=== PATIENT | male | born 1970 | race Caucasian/White ===

== ENCOUNTER 2016-09-26 22:34 | Inpatient (IN) | payer OTHER ==
[2016-09-26] MEDS ORDERED: ONDANSETRON 4 MG/2 ML VIAL IVP STA (23:26)
[2016-09-26] MEDS ORDERED: SODIUM CHLORIDE 0.9% 1,000 ML IV STA (23:26)
[2016-09-26] MEDS ORDERED: HYDROmorphone 1 MG/ML 1 ML SYRINGE IVP STA (23:26)
--- NOTE | 2016-09-26 23:33 | ED ---
Abdominal Pain HPI - General Chief Complaint: Abdominal Pain Stated Complaint: Abd pain Time Seen by Provider: 09/26/16 23:18 Source: patient, RN notes reviewed Mode of arrival: ambulatory Limitations: no limitations - History of Present Illness Initial Comments: patient is a 46-year-old male presents to the emergency room for evaluation of abdominal pain. Patient states abdominal pain began about 2-3 days ago. Patient states the pain started in his left lower quadrant now radiated up into his left upper quadrant and right upper quadrant. Patient denies any history of abdominal pain. Patient denies any history of abdominal surgeries. Patient is having 10 out of 10 constant pain. Patient states he has chronic back pain. Patient states takes Percocet daily. Patient denies any other significant past medical history. Patient denies chest pain or shortness of breath. Patient states he is nauseous but denies vomiting. Patient denies constipation or diarrhea. Patient denies fevers or chills. Patient states he has been breaking out in cold sweats. Patient denies smoking, drinking or illicit drug use. patient denies trying any foods. Patient denies recent travel outside the country. Patient denies any new medications. - Related Data Home Medications Medication Instructions Recorded Confirmed oxyCODONE HCL/ACETAMINOPHEN 1 tab PO Q6HR PRN 09/26/16 09/26/16 [Percocet 10-325 mg] Allergies Allergy/AdvReac Type Severity Reaction Status Date / Time meperidine [From Demerol] Allergy Anaphylaxis Verified 09/26/16 23:23 propoxyphene Allergy Anaphylaxis Verified 09/26/16 23:23 Review of Systems ROS Statement: Those systems with pertinent positive or pertinent negative responses have been documented in the HPI. ROS Other: All systems not noted in ROS Statement are negative. Past Medical History Past Medical History: No Reported History History of Any Multi-Drug Resistant Organisms: None Reported Past Surgical History: Orthopedic Surgery Additional Past Surgical History / Comment(s): hand sx. Past Psychological History: No Psychological Hx Reported Smoking Status: Former smoker Past Alcohol Use History: Rare Past Drug Use History: None Reported General Exam - General Exam Comments Initial Comments: laying in exam room, uncomfortable secondary to pain. Limitations: no limitations General appearance: alert, in no apparent distress Head exam: Present: atraumatic, normocephalic, normal inspection Eye exam: Present: normal appearance ENT exam: Present: normal exam Neck exam: Present: normal inspection Respiratory exam: Present: normal lung sounds bilaterally. Absent: respiratory distress Cardiovascular Exam: Present: regular rate, normal rhythm, normal heart sounds GI/Abdominal exam: Present: soft, tenderness (left lower quadrant, left upper quadrant, right upper quadrant), normal bowel sounds. Absent: distended, guarding, rebound, rigid Extremities exam: Present: normal inspection Back exam: Present: normal inspection Neurological exam: Present: alert, oriented X3, CN II-XII intact, normal gait Psychiatric exam: Present: normal affect, normal mood Skin exam: Present: warm, dry, intact, normal color. Absent: rash Course Vital Signs 09/26/16 09/26/16 09/27/16 22:48 23:48 01:20 Temperature 97.5 F L 98.8 F 98.0 F Pulse Rate 67 63 62 Respiratory 18 16 18 Rate Blood Pressure 129/79 132/81 128/68 O2 Sat by Pulse 92 L 96 98 Oximetry 09/27/16 03:12 Temperature 97.9 F Pulse Rate 67 Respiratory 16 Rate Blood Pressure 122/68 O2 Sat by Pulse 98 Oximetry Medical Decision Making - Medical Decision Making Patient is a 46-year-old male presents to the emergency room for evaluation of abdominal pain. Patient's liver enzymes elevated along with amylase and lipase. Ultrasound showed no signs of cholecystitis or cholelithiasis. Patient will be admitted for pancreatitis. Consult with Dr. Rachel. Case discussed Dr. Pickett. Dr. Pickett discussed case with Dr. Desir who agreed to admit patient - Lab Data Result diagrams: 09/26/16 23:46 09/26/16 23:46 Lab Results 09/26/16 09/26/16 09/26/16 Range/Units 23:46 23:46 23:46 WBC 8.0 (3.8-10.6) k/uL RBC 5.00 (4.30-5.90) m/uL Hgb 15.5 (13.0-17.5) gm/dL Hct 42.8 (39.0-53.0) % MCV 85.5 (80.0-100.0) fL MCH 31.0 (25.0-35.0) pg MCHC 36.2 (31.0-37.0) g/dL RDW 13.0 (11.5-15.5) % Plt Count 197 (150-450) k/uL Neutrophils % 77 % Lymphocytes % 17 % Monocytes % 4 % Eosinophils % 1 % Basophils % 0 % Neutrophils # 6.2 (1.3-7.7) k/uL Lymphocytes # 1.4 (1.0-4.8) k/uL Monocytes # 0.3 (0-1.0) k/uL Eosinophils # 0.1 (0-0.7) k/uL Basophils # 0.0 (0-0.2) k/uL Hyperchromasia Slight Sodium 140 (137-145) mmol/L Potassium 4.4 (3.5-5.1) mmol/L Chloride 104 (98-107) mmol/L Carbon Dioxide 26 (22-30) mmol/L Anion Gap 10 mmol/L BUN 12 (9-20) mg/dL Creatinine 0.90 (0.66-1.25) mg/dL Est GFR (MDRD) Af Amer >60 (>60 ml/min/1.73 sqM) Est GFR (MDRD) Non-Af >60 (>60 ml/min/1.73 sqM) Glucose 152 H (74-99) mg/dL Calcium 9.2 (8.4-10.2) mg/dL Total Bilirubin 4.1 H (0.2-1.3) mg/dL AST 218 H (17-59) U/L ALT 235 H (21-72) U/L Alkaline Phosphatase 142 H (38-126) U/L Total Creatine Kinase 52 L (55-170) U/L CK-MB (CK-2) 0.3 (0.0-2.4) ng/mL CK-MB (CK-2) Rel Index 0.6 Troponin I <0.012 (0.000-0.034) ng/mL Total Protein 7.0 (6.3-8.2) g/dL Albumin 3.9 (3.5-5.0) g/dL Amylase 1691 H* (30-110) U/L Lipase 87069 H (23-300) U/L Urine Color Urine Appearance (Clear) Urine pH (5.0-8.0) Ur Specific [place] (1.001-1.035) Urine Protein (Negative) Urine Glucose (UA) (Negative) Urine Ketones (Negative) Urine Blood (Negative) Urine Nitrite (Negative) Urine Bilirubin (Negative) Urine Urobilinogen (<2.0) mg/dL Ur Leukocyte Esterase (Negative) 09/27/16 Range/Units 00:05 WBC (3.8-10.6) k/uL RBC (4.30-5.90) m/uL Hgb (13.0-17.5) gm/dL Hct (39.0-53.0) % MCV (80.0-100.0) fL MCH (25.0-35.0) pg MCHC (31.0-37.0) g/dL RDW (11.5-15.5) % Plt Count (150-450) k/uL Neutrophils % % Lymphocytes % % Monocytes % % Eosinophils % % Basophils % % Neutrophils # (1.3-7.7) k/uL Lymphocytes # (1.0-4.8) k/uL Monocytes # (0-1.0) k/uL Eosinophils # (0-0.7) k/uL Basophils # (0-0.2) k/uL Hyperchromasia Sodium (137-145) mmol/L Potassium (3.5-5.1) mmol/L Chloride (98-107) mmol/L Carbon Dioxide (22-30) mmol/L Anion Gap mmol/L BUN (9-20) mg/dL Creatinine (0.66-1.25) mg/dL Est GFR (MDRD) Af Amer (>60 ml/min/1.73 sqM) Est GFR (MDRD) Non-Af (>60 ml/min/1.73 sqM) Glucose (74-99) mg/dL Calcium (8.4-10.2) mg/dL Total Bilirubin (0.2-1.3) mg/dL AST (17-59) U/L ALT (21-72) U/L Alkaline Phosphatase (38-126) U/L Total Creatine Kinase (55-170) U/L CK-MB (CK-2) (0.0-2.4) ng/mL CK-MB (CK-2) Rel Index Troponin I (0.000-0.034) ng/mL Total Protein (6.3-8.2) g/dL Albumin (3.5-5.0) g/dL Amylase (30-110) U/L Lipase (23-300) U/L Urine Color Dark Yellow Urine Appearance Clear (Clear) Urine pH 6.0 (5.0-8.0) Ur Specific [place] 1.021 (1.001-1.035) Urine Protein Trace H (Negative) Urine Glucose (UA) Negative (Negative) Urine Ketones Negative (Negative) Urine Blood Negative (Negative) Urine Nitrite Negative (Negative) Urine Bilirubin 1+ H (Negative) Urine Urobilinogen 6.0 (<2.0) mg/dL Ur Leukocyte Esterase Negative (Negative) - Radiology Data Radiology results: report reviewed, image reviewed Disposition Clinical Impression: Pancreatitis Disposition: ADMITTED IP TO THIS [facility] Condition: Stable Decision Date: 09/27/16
[2016-09-27 00:21] LABS: Basophils % (A) 0 %; CH 32.4; CHCM 38.1; Eosinophils # (A) 0.1 k/uL (0-0.7); Eosinophils % (A) 1 %; HCT 42.8 % (39.0-53.0); HDW 3.05; HGB 15.5 gm/dL (13.0-17.5); Hyperchromasia Slight; Luc % (Auto) 1; Lymphocytes # (A) 1.4 k/uL (1.0-4.8); Lymphocytes % (A) 17 %; MCHC 36.2 g/dL (31.0-37.0); MCV 85.5 fL (80.0-100.0); Monocytes # (A) 0.3 k/uL (0-1.0); Monocytes % (A) 4 %; Neutrophils # (A) 6.2 k/uL (1.3-7.7); Neutrophils % (A) 77 %; WBC (Perox) 7.74
[2016-09-27 00:42] LABS: ALT 235 U/L (21-72); AST 218 U/L (17-59); Alkaline Phosphatase 142 U/L (38-126); Anion Gap 10 mmol/L; Blood Urea Nitrogen 12 mg/dL (9-20); Calcium 9.2 mg/dL (8.4-10.2); Carbon Dioxide 26 mmol/L (22-30); Chloride 104 mmol/L (98-107); Creatine Kinase 52 U/L (55-170); Glucose 152 mg/dL (74-99); Non-African American GFR(MDRD) >60 (>60 ml/min/1.73 sqM); Potassium 4.4 mmol/L (3.5-5.1); Sodium 140 mmol/L (137-145); Total Bilirubin 4.1 mg/dL (0.2-1.3)
--- NOTE | 2016-09-27 00:52 | XR ---
EXAM: XR Abdomen Complete With XR Chest CLINICAL HISTORY: Reason: Pain TECHNIQUE: Frontal view of the chest, frontal view of the abdomen/pelvis and upright view of the abdomen. COMPARISON: No relevant prior studies available. FINDINGS: Lungs: Hypoventilatory lungs. Pleural space: Unremarkable. No pneumothorax. Heart: Unremarkable. No cardiomegaly. Mediastinum: Unremarkable. Intraperitoneal space: No free air. Gastrointestinal tract: Unremarkable. No dilation. Bones/joints: Unremarkable. IMPRESSION: No acute findings.
[2016-09-27 00:53] LABS: Amylase 1691 U/L (30-110)
[2016-09-27 00:54] LABS: Appearance,Urine Clear (Clear); Bilirubin,Urine 1+ (Negative); Glucose,Urine (UA) Negative (Negative); Ketones,Urine Negative (Negative); Leukocyte Esterase,Urine Negative (Negative); Nitrite,Urine Negative (Negative); Protein,Urine Trace (Negative); Specific Gravity,Urine 1.021 (1.001-1.035); UA Billing (MACRO vs. MICRO) CHEM
[2016-09-27 00:55] LABS: Creatine Kinase MB 0.3 ng/mL (0.0-2.4); Troponin I <0.012 ng/mL (0.000-0.034)
[2016-09-27] MEDS ORDERED: KETOROLAC 30 MG/ML 1 ML VIAL IVP STA (01:26)
[2016-09-27] MEDS ORDERED: NALOXONE 0.4 MG/ML 1 ML VIAL IV PRN (02:43)
[2016-09-27] MEDS ORDERED: KETOROLAC 30 MG/ML 1 ML VIAL IVP PRN (02:43)
--- NOTE | 2016-09-27 03:21 | US ---
EXAM: US Abdomen Complete CLINICAL HISTORY: Reason: Pain TECHNIQUE: Real-time ultrasound of the abdomen (complete) with image documentation. COMPARISON: No relevant prior studies available. FINDINGS: Liver: Dense liver may be fatty. Liver slightly enlarged, 16.6 cm. No intrahepatic bile duct dilation. Gallbladder: Distended gallbladder. No gallstones. Normal gallbladder wall. No free fluid. Positive Balbuena's sign. Common bile duct: CBD within normal limits 4.5 mm. No stones. No dilation. Pancreas: Pancreas not well seen. Kidneys: Right kidney unremarkable, 11.8 x 5.1 x 5.1 cm. No stones. No hydronephrosis. IMPRESSION: 1. Dense slightly enlarged liver may be fatty, correlate with LFTs. 2. No cholelithiasis or acute cholecystitis. Sonographic Balbuena sign present. Consider nuclear medicine HIDA scan and/or MRCP if clinically indicated.
[2016-09-27] MEDS: SODIUM CHLORIDE 0.9% 1,000 ML IV SCH ×2 (03:25→13:27)
[2016-09-27] MEDS: HYDROmorphone 1 MG/ML 1 ML SYRINGE IV PRN ×7 (03:50→22:23)
[2016-09-27] MEDS: NICOTINE 21MG/24HR PATCH TRANSDERM SCH ×2 (04:16→09:28)
[2016-09-27 06:32] VITALS: BMI 43.0
[2016-09-27 07:55] LABS: Basophils % (A) 0 %; CHCM 36.7; Eosinophils # (A) 0.1 k/uL (0-0.7); Eosinophils % (A) 1 %; HCT 42.1 % (39.0-53.0); HDW 3.05; HGB 15.1 gm/dL (13.0-17.5); Luc # (Auto) 0.15; Luc % (Auto) 2; Lymphocytes # (A) 2.2 k/uL (1.0-4.8); Lymphocytes % (A) 28 %; MCH 31.4 pg (25.0-35.0); MCHC 35.9 g/dL (31.0-37.0); MCV 87.6 fL (80.0-100.0); Mean Platelet Volume 6.7; Monocytes # (A) 0.4 k/uL (0-1.0); Monocytes % (A) 5 %; Neutrophils # (A) 5.1 k/uL (1.3-7.7); Neutrophils % (A) 63 %; RBC 4.81 m/uL (4.30-5.90); RDW 13.2 % (11.5-15.5); WBC (Perox) 8.08
[2016-09-27 08:11] LABS: ALT 290 U/L (21-72); AST 212 U/L (17-59); Alkaline Phosphatase 128 U/L (38-126); Anion Gap 8 mmol/L; Blood Urea Nitrogen 13 mg/dL (9-20); Calcium 8.3 mg/dL (8.4-10.2); Carbon Dioxide 26 mmol/L (22-30); Chloride 106 mmol/L (98-107); Glucose 91 mg/dL (74-99); Non-African American GFR(MDRD) >60 (>60 ml/min/1.73 sqM); Sodium 140 mmol/L (137-145); Total Bilirubin 3.6 mg/dL (0.2-1.3); Total Protein 6.6 g/dL (6.3-8.2)
[2016-09-27 08:51] LABS: Amylase 938 U/L (30-110)
--- NOTE | 2016-09-27 10:51 | P.HPIM ---
History of Present Illness H&P Date: 09/27/16 Chief Complaint: Abdominal pain This is a 46-year-old male, patient of Dr. Parson. He has a known past medical history of chronic back and neck pain in which she chronically takes Percocet usually 3 a day. Patient reports having abdominal pain over the last 3 days. Pain started in the left lower quadrant and has come up into the right upper quadrant and epigastric area. Patient reports the pain was so severe that he was hunched over and came into the emergency room for further evaluation and treatment. On admission total bili was elevated at 4.1 and AST elevated 218 ALT 235 alk phos 142 amylase 1691 and lipase 11,576. Patient is noted to the hospital for acute pancreatitis he was started on IV fluids. GI service has been consulted. Patient denies any excessive alcohol use. Patient states that he drinks maybe a couple times a year. In the last time was several weeks ago. Patient reports no history of gallstones. Abdominal ultrasound showed a dense slightly enlarged liver may be fatty. As well as no cholelithiasis or acute cholecystitis. Sonographic Balbuena sign present. Consider nuclear HIDA scan or MRCP. GI service has been consulted for further recommendations. He's been started on IV fluids. He's has IV Dilaudid and Toradol for pain control. He is currently nothing by mouth. Still reporting abdominal pain about a 7 out of 10. Encourage nursing staff to continue with current pain medication dosage. Patient did fill nausea and no actual bottle vomiting. No change in bowel movements. Denies any chest pain or shortness of breath. Denies any fevers chills or sweats. Review of Systems Please refer to HPI otherwise unremarkable Past Medical History Past Medical History: No Reported History Additional Past Medical History / Comment(s): Chronic back and neck pain. Hiatal hernia History of Any Multi-Drug Resistant Organisms: None Reported Past Surgical History: Orthopedic Surgery Additional Past Surgical History / Comment(s): hand sx. EGD Past Anesthesia/Blood Transfusion Reactions: No Reported Reaction Past Psychological History: No Psychological Hx Reported Smoking Status: Former smoker Past Alcohol Use History: Rare Past Drug Use History: None Reported - Past Family History Father Family Medical History: No Reported History Medications and Allergies Home Medications Medication Instructions Recorded Confirmed Type oxyCODONE HCL/ACETAMINOPHEN 1 tab PO Q6HR PRN 09/26/16 09/26/16 History [Percocet 10-325 mg] Allergies Allergy/AdvReac Type Severity Reaction Status Date / Time meperidine [From Demerol] Allergy Anaphylaxis Verified 09/26/16 23:23 propoxyphene Allergy Anaphylaxis Verified 09/26/16 23:23 Physical Exam Vitals: Vital Signs Temp Pulse Pulse Resp BP BP Pulse Ox 09/27/16 08:00 67 09/27/16 07:00 98.1 F 67 16 128/58 96 09/27/16 03:56 98 F 58 L 16 129/62 97 09/27/16 03:12 97.9 F 67 16 122/68 98 09/27/16 01:20 98.0 F 62 18 128/68 98 09/26/16 23:48 98.8 F 63 16 132/81 96 09/26/16 22:48 97.5 F L 67 18 129/79 92 L Intake and Output 09/26/16 09/27/16 09/27/16 22:59 06:59 14:59 Intake Total 0 Balance 0 Intake: Oral 0 Other: Weight 136.078 kg 136.078 kg Head normocephalic Neck supple Lungs clear to auscultation bilaterally no wheezing or crackles Heart regular rate and rhythm S1-S2, no rub or gallop Abdomen is soft nondistended positive bowel sounds. Patient has right upper quadrant and epigastric tenderness more more pain with palpation epigastric area. Also some tenderness noted in the left lower quadrant. Extremities no edema Neuro alert and orientated to 3 Results CBC & Chem 7: 09/27/16 07:29 09/27/16 07:29 Labs: Abnormal Lab Results - Last 24 Hours (Table) 09/26/16 09/26/16 09/27/16 Range/Units 23:46 23:46 00:05 Glucose 152 H (74-99) mg/dL Calcium (8.4-10.2) mg/dL Total Bilirubin 4.1 H (0.2-1.3) mg/dL AST 218 H (17-59) U/L ALT 235 H (21-72) U/L Alkaline Phosphatase 142 H (38-126) U/L Total Creatine Kinase 52 L (55-170) U/L Amylase 1691 H* (30-110) U/L Lipase 30536 H (23-300) U/L Urine Protein Trace H (Negative) Urine Bilirubin 1+ H (Negative) 09/27/16 Range/Units 07:29 Glucose (74-99) mg/dL Calcium 8.3 L (8.4-10.2) mg/dL Total Bilirubin 3.6 H (0.2-1.3) mg/dL AST 212 H (17-59) U/L ALT 290 H (21-72) U/L Alkaline Phosphatase 128 H (38-126) U/L Total Creatine Kinase (55-170) U/L Amylase 938 H* (30-110) U/L Lipase 4114 H (23-300) U/L Urine Protein (Negative) Urine Bilirubin (Negative) Thrombosis Risk Factor Assmnt - Choose All That Apply Any of the Below Risk Factors Present?: Yes Each Factor Represents 1 point: Age 41-60 years, Obesity (BMI >25) Other Risk Factors: No Thrombosis Risk Factor Assessment Total Risk Factor Score: 2 Thrombosis Risk Factor Assessment Level: Low Risk Assessment and Plan Plan: 1. Acute pancreatitis: Possibly a gallstone pancreatitis. Patient may have passed a stone since elevated LFTs. However will check triglyceride level. Consult GI service. Ultrasound showed No evidence of gallstones. There was a positive Balbuena sign. And slightly enlarged liver may be fatty. Continue IV fluids. Patient nothing by mouth. Monitor amylase, lipase and LFTs. Continue pain control with Dilaudid and Toradol 2. Chronic neck and back pain 3. Nicotine dependence: Patient chews tobacco. He's been placed on nicotine patch GI prophylaxis Protonix and DVT prophylaxis Lovenox Time with Patient: Greater than 30 (Greater than 50% of the total time spent in counseling and coordination of care.I performed an examination of the patient and discussed their management with the physician Manager Financial Reporting. I have reviewed the Physician Manager Financial Reporting's notes and agree with the documented findings and plan of care)
[2016-09-27] MEDS: PANTOPRAZOLE 40 MG/10 ML VIAL IVP SCH (13:29)
[2016-09-27] MEDS ORDERED: RX INFO: IV CONTRAST WAS GIVEN 1 EACH MISC MISCELLANE PRN (14:34)
[2016-09-27] MEDS: IOHEXOL 350 MG/ML 25 ML BOTTLE (ORAL USE) PO PRN ×2 (15:45→16:36)
--- NOTE | 2016-09-27 17:50 | CT ---
EXAMINATION TYPE: CT abdomen pelvis w con DATE OF EXAM: 09/27/2016 COMPARISON: NONE HISTORY: Upper abdominal pain x3 days. CT DLP: 2342.3 mGycm Automated exposure control for dose reduction was used. TECHNIQUE: Helical acquisition of images was performed from the lung bases through the pelvis. CONTRAST: Performed with Oral Contrast and with IV Contrast, patient injected with 100 mL of Omnipaque 300. FINDINGS: There is minimal linear density at the left lung base related to subsegmental atelectasis. There is n o pleural effusion. There are some calcified gallstones in the dependent gallbladder. Liver shows no focal defect. Spleen and pancreas appear normal. Bile ducts are not dilated. There is no adrenal mass. There is a 1 cm co rtical cyst on the posterior left kidney. There is no hydronephrosis. Kidneys have normal size. There is no retroperitoneal adenopathy. There is no ascites. Bladder distends smoothly. There is no s ign of a pelvic mass. Appendix appears normal. I see no intestinal wall thickening. There are no dila andrews loops. I see no bony destructive process. Lumbar spine is intact.: IMPRESSION: SMALL LEFT RENAL CORTICAL CYST. MINIMAL SUBSEGMENTAL ATELECTASIS. NO EVIDENCE OF PANCREATITIS. NORMAL APPENDIX. MULTIPLE SMALL CALCIFIED GALLSTONES.
[2016-09-27] MEDS: ONDANSETRON 4 MG/2 ML VIAL IVP PRN (22:22)
[2016-09-28] MEDS: HYDROmorphone 1 MG/ML 1 ML SYRINGE IV PRN ×6 (01:47→20:42)
[2016-09-28] MEDS: SODIUM CHLORIDE 0.9% 1,000 ML IV SCH ×6 (01:50→20:45)
[2016-09-28] MEDS: NICOTINE 21MG/24HR PATCH TRANSDERM SCH (07:51)
[2016-09-28] MEDS: PANTOPRAZOLE 40 MG/10 ML VIAL IVP SCH (07:52)
[2016-09-28] MEDS: ENOXAPARIN 40 MG/0.4 ML SYRINGE SQ SCH (07:52)
[2016-09-28 08:11] LABS: Basophils % (A) 0 %; CH 32.1; CHCM 35.7; Eosinophils % (A) 0 %; HCT 42.7 % (39.0-53.0); HDW 2.83; HGB 14.4 gm/dL (13.0-17.5); Luc # (Auto) 0.15; Luc % (Auto) 2; Lymphocytes # (A) 1.8 k/uL (1.0-4.8); Lymphocytes % (A) 18 %; MCH 30.4 pg (25.0-35.0); MCHC 33.7 g/dL (31.0-37.0); MCV 90.1 fL (80.0-100.0); Mean Platelet Volume 6.9; Monocytes # (A) 0.5 k/uL (0-1.0); Monocytes % (A) 5 %; Neutrophils # (A) 7.4 k/uL (1.3-7.7); Neutrophils % (A) 75 %; RBC 4.74 m/uL (4.30-5.90); RDW 13.3 % (11.5-15.5); WBC 9.9 k/uL (3.8-10.6); WBC (Perox) 9.74
--- NOTE | 2016-09-28 08:28 | P.CONS ---
History of Present Illness - Reason for Consult Consult date: 09/28/16 Pancreatitis Requesting physician: Pema Desir - History of Present Illness 46-year-old gentleman patient of Dr. Villatoro with a past medical history of obesity, chronic back pain. Presents with 4 day history of nausea and midepigastric bilateral upper abdominal pain without fever. Dark-colored urine. Denies acholic stools. History of this type of pain dating back at least 10 years with intermittent exacerbations not requiring hospitalization. Consultation requested for pancreatitis. No history of pancreatitis. Denies EtOH abuse/IVDA. No changes in medications. No history of autoimmune diseases. Ultrasound no stones. Fatty liver. CBD [address] abdomen and pelvis calcified gallstones. No focal defect in liver. Pancreas appeared normal. Bile ducts not enlarged. 09/26/2016: White count 8.0-9.9. Hemoglobin 14.4. Lipase 11,576. Amylase 1691. Total bilirubin 4.1. AST 218. ALT 235. Alkaline phosphates 142. Platelet 197. 09/27/2016 total bilirubin 3.6. AST 212. ALT 290. Alkaline phosphatase 128. Lipase 4114. Amylase 938. Triglycerides 140. Review of Systems Constitutional: Denies fever, chills, sweats, weight gain, or loss. HEENT: Negative for migraines, blurred vision or loss, earaches, drainage, tinnitus, oral mucosal lesions, dysphagia, or odynophagia. Cardiac: Negative for chest pain, arrhythmias, or palpitation. Respiratory: Negative for shortness of breath, hemoptysis, cough, or sputum production. Gastrointestinal: See HPI for pertinent findings. Genitourinary: Negative for hematuria, urgency, frequency, polyuria, dysuria, or penile discharge. Musculoskeletal: Chronic back pain. Neurologic: Negative for stroke or TIA. Endocrine: Negative for thyroid problems. Skin: Negative for rash or itching. Psychiatric: Negative history for depression and anxiety All systems: negative (See HPI) Past Medical History Past Medical History: No Reported History Additional Past Medical History / Comment(s): Chronic back and neck pain. Hiatal hernia History of Any Multi-Drug Resistant Organisms: None Reported Past Surgical History: Orthopedic Surgery Additional Past Surgical History / Comment(s): hand sx. EGD Past Anesthesia/Blood Transfusion Reactions: No Reported Reaction Past Psychological History: No Psychological Hx Reported Smoking Status: Former smoker Past Alcohol Use History: Rare Past Drug Use History: None Reported - Past Family History Father Family Medical History: No Reported History Medications and Allergies Home Medications Medication Instructions Recorded Confirmed Type oxyCODONE HCL/ACETAMINOPHEN 1 tab PO Q6HR PRN 09/26/16 09/26/16 History [Percocet 10-325 mg] Allergies Allergy/AdvReac Type Severity Reaction Status Date / Time meperidine [From Demerol] Allergy Anaphylaxis Verified 09/26/16 23:23 propoxyphene Allergy Anaphylaxis Verified 09/26/16 23:23 Physical Exam Vitals: Vital Signs Temp Pulse Resp BP Pulse Ox 09/28/16 07:00 99.8 F H 74 16 125/60 95 09/27/16 22:39 98.6 F 78 18 98/54 97 09/27/16 19:38 16 09/27/16 16:00 16 09/27/16 15:00 98.6 F 66 16 110/56 95 Intake and Output 09/27/16 09/28/16 09/28/16 22:59 06:59 14:59 Intake Total 400 240 Output Total 200 Balance 400 40 Intake: IV 400 Sodium Chloride 0.9% 1, 400 000 ml @ 100 mls/hr IV . Q10H MORIAH Rx#:[id number] Oral 240 Output: Urine 200 Other: # Voids 2 General appearance: The patient is alert, oriented, in no acute distress. HET: Head is normocephalic and atraumatic. Pupils are equal and reactive. Oropharynx is clear without lesions. Neck: Supple without lymphadenopathy. Trachea midline. Heart: S1 S2. Regular rate and rhythm. Lungs: No crackles or wheezes are heard. Abdomen: Soft, mild tenderness midepigastrium, nondistended with bowel sounds. No peritoneal signs. No palpable organomegaly or masses. Extremities: Normal skin color and turgor. No cyanosis, rash, ulceration, clubbing, or edema. Radial and pedal pulses are 2/4 bilaterally. Neurological: No focal deficits. Strength and sensation are grossly intact. Results CBC & Chem 7: 09/28/16 07:17 09/27/16 07:29 Labs: Abnormal Lab Results - Last 24 Hours (Table) 09/27/16 Range/Units 07:29 Calcium 8.3 L (8.4-10.2) mg/dL Total Bilirubin 3.6 H (0.2-1.3) mg/dL AST 212 H (17-59) U/L ALT 290 H (21-72) U/L Alkaline Phosphatase 128 H (38-126) U/L Amylase 938 H* (30-110) U/L Lipase 4114 H (23-300) U/L CT scan - abdomen: report reviewed (Dr. Rachel) US - abdomen: report reviewed (Dr. Rachel) Assessment and Plan (1) Pancreatitis Narrative/Plan: Probable gallstone pancreatitis choledocholithiasis possible passage of gallstone Status: Acute (2) Morbid obesity with BMI of 40.0-44.9, adult Status: Acute Plan: 1. Hepatitis panel. 2. Morning chemistries pending we'll review if unchanged or worsen we'll proceed with ERCP evaluation as long as pancreatic enzymes continue to improve. 3. Supportive measures. GI prophylaxis. [facility] has discussed the risks, benefits and alternative therapies for the above-mentioned procedure and for both sedation/analgesia as well as necessary blood product administration, if indicated, as they pertain to this patient. The patient has indicated understanding and acceptance of the risks and procedures discussed. Thank you for this kind referral and the opportunity to participate in the care of your patient. This consultation was discussed with Dr. Rachel. The impression and plan of care have been directed as dictated.
[2016-09-28 08:30] LABS: ALT 216 U/L (21-72); AST 109 U/L (17-59); Alkaline Phosphatase 127 U/L (38-126); Anion Gap 13 mmol/L; Blood Urea Nitrogen 10 mg/dL (9-20); Calcium 8.7 mg/dL (8.4-10.2); Carbon Dioxide 22 mmol/L (22-30); Chloride 103 mmol/L (98-107); Glucose 88 mg/dL (74-99); Non-African American GFR(MDRD) >60 (>60 ml/min/1.73 sqM); Potassium 4.1 mmol/L (3.5-5.1); Sodium 138 mmol/L (137-145); Total Bilirubin 3.2 mg/dL (0.2-1.3); Total Protein 6.7 g/dL (6.3-8.2)
[2016-09-28 08:34] LABS: Amylase 334 U/L (30-110)
[2016-09-28] MEDS: ONDANSETRON 4 MG/2 ML VIAL IVP PRN (08:52)
[2016-09-28 12:12] LABS: Hepatitis B Surface Ag Index 0.05
[2016-09-28 12:18] LABS: Hepatitis B Core IgM Index 0.02
--- NOTE | 2016-09-28 12:29 | P.PN ---
Subjective Patient is doing better today. He is tolerating liquid diet. Pain is 5 out of 10 in severity. Objective - Vital Signs Vital signs: Vital Signs Temp 99.8 F H 09/28/16 07:00 Pulse 74 09/28/16 07:00 Resp 16 09/28/16 07:00 BP 125/60 09/28/16 07:00 Pulse Ox 95 09/28/16 07:00 Intake & Output 09/27/16 09/28/16 09/28/16 18:59 06:59 18:59 Intake Total 800 640 Output Total 200 Balance 800 440 Intake: IV 800 400 Sodium Chloride 0.9% 1, 800 400 000 ml @ 100 mls/hr IV . Q10H MORIAH Rx#:[id number] Oral 240 Output: Urine 200 Other: # Voids 2 - Exam General: The patient is awake and alert, in no distress Eye: there is normal conjunctiva bilaterally. Neck: The neck is supple, there is no JVD. Cardiovascular: Normal S1-S2, no S3-S4, no murmurs. Respiratory: Lungs clear to auscultation bilaterally Gastrointestinal: Abdomen is soft, nontender Musculoskeletal: There is no pedal edema. Neurological:. Speech is normal. Skin: Skin is warm and dry - Labs CBC & Chem 7: 09/28/16 07:17 09/28/16 07:17 Labs: Abnormal Lab Results - Last 24 Hours (Table) 09/28/16 Range/Units 07:17 Total Bilirubin 3.2 H (0.2-1.3) mg/dL AST 109 H (17-59) U/L ALT 216 H (21-72) U/L Alkaline Phosphatase 127 H (38-126) U/L Amylase 334 H* (30-110) U/L Lipase 945 H (23-300) U/L Assessment and Plan Plan: 1. Acute gallstone pancreatitis: Patient was seen and evaluated by GI. for ercp at this time as stone with thought to be passed already. we will consult surgery for further evaluation and consider cholecystectomy. we will continue liquid diet for now. pain control and iv fluid hydration. repeat lab work in the morning. liver enzymes are trending down. 2. Chronic neck and back pain 3. Nicotine dependence: Patient chews tobacco. He's been placed on nicotine patch
[2016-09-28 12:30] LABS: Hepatitis C Virus IgG Ab Negative (Negative); Hepatitis C Virus IgG Index 0.04
--- NOTE | 2016-09-28 16:40 | P.GSCN ---
History of Present Illness Consult date: 09/28/16 Reason for Consult: Gallstone pancreatitis History of present illness: Thank you very much for asking us to see this patient. He is a 46-year-old white male who developed the epigastric with nausea but 3 days ago. He presented to the emergency room. He states he's been having similar episodes for the last 3 months off and on. Denies any excessive alcohol intake. He cannot recall anything that he had done to precipitate the fever or chills. Did notice his eyes turning yellow. Urine was also dark. Stools were normal. Skin CAT scan revealed the full calcified gallstones. Pancreas looked unremarkable. However amylase and lipase were markedly elevated with these lipase 4000. His enzymes have gradually come down including his bilirubin which was up to 4.1 now down to 3.2 today. LFTs are all elevated. Past history. Unremarkable. History of GERD. Had EGD in the past. Some hand surgery. Social history. She was tobacco. Rarely drinks alcohol. No excessive intake recently. Family history noncontributory. He cannot recall anybody having gallbladder disease. His father recently from complications of lung cancer and embolic phenomena. Systems review. Otherwise normal. No cardiac or respiratory problems. No change in his bowels or blood in his stool. No urinary symptoms. Allograft ALLERGIES. Demerol propoxyphene. On examination the patient is quite overweight at the BMI of 43 by feet 10 inches tall. Temperature is 90.9. Slightly icteric. Head and neck otherwise normal. Abdomen soft with mild epigastric tenderness but no guarding or rebound or rigidity. No mass or organomegaly or hernias noted. Extremities normal with full motion. SOLE LAYER HAND intact. Impression. Most likely gallstone pancreatitis. Jaundice. This may be related to possible common bile duct obstruction even though the common bile duct caliber is fairly normal Recommendation. Continued the IV fluids antibiotics bowel rest would recommend a laparoscopic cholecystectomy possible open once the enzymes are close to normal. We will continue to follow with you. Dr. Gonsales be informed of the consult on his return. Past Medical History Past Medical History: No Reported History Additional Past Medical History / Comment(s): Chronic back and neck pain. Hiatal hernia History of Any Multi-Drug Resistant Organisms: None Reported Past Surgical History: Orthopedic Surgery Additional Past Surgical History / Comment(s): hand sx. EGD Past Anesthesia/Blood Transfusion Reactions: No Reported Reaction Past Psychological History: No Psychological Hx Reported Smoking Status: Former smoker Past Alcohol Use History: Rare Past Drug Use History: None Reported - Past Family History Father Family Medical History: No Reported History Medications and Allergies Home Medications Medication Instructions Recorded Confirmed Type oxyCODONE HCL/ACETAMINOPHEN 1 tab PO Q6HR PRN 09/26/16 09/26/16 History [Percocet 10-325 mg] Allergies Allergy/AdvReac Type Severity Reaction Status Date / Time meperidine [From Demerol] Allergy Anaphylaxis Verified 09/26/16 23:23 propoxyphene Allergy Anaphylaxis Verified 09/26/16 23:23 Surgical - Exam Vital Signs Temp Pulse Resp BP Pulse Ox 97.5 F L 67 18 129/79 92 L 09/26/16 22:48 09/26/16 22:48 09/26/16 22:48 09/26/16 22:48 09/26/16 22:48 Results - Labs 09/28/16 07:17 09/28/16 07:17 Abnormal Lab Results - Last 24 Hours (Table) 09/28/16 Range/Units 07:17 Total Bilirubin 3.2 H (0.2-1.3) mg/dL AST 109 H (17-59) U/L ALT 216 H (21-72) U/L Alkaline Phosphatase 127 H (38-126) U/L Amylase 334 H* (30-110) U/L Lipase 945 H (23-300) U/L Diabetes panel 09/28/16 Range/Units 07:17 Sodium 138 (137-145) mmol/L Potassium 4.1 (3.5-5.1) mmol/L Chloride 103 (98-107) mmol/L Carbon Dioxide 22 (22-30) mmol/L BUN 10 (9-20) mg/dL Creatinine 0.88 (0.66-1.25) mg/dL Glucose 88 (74-99) mg/dL Calcium 8.7 (8.4-10.2) mg/dL AST 109 H (17-59) U/L ALT 216 H (21-72) U/L Alkaline Phosphatase 127 H (38-126) U/L Total Protein 6.7 (6.3-8.2) g/dL Albumin 3.6 (3.5-5.0) g/dL Calcium panel 09/28/16 Range/Units 07:17 Calcium 8.7 (8.4-10.2) mg/dL Albumin 3.6 (3.5-5.0) g/dL Pituitary panel 09/28/16 Range/Units 07:17 Sodium 138 (137-145) mmol/L Potassium 4.1 (3.5-5.1) mmol/L Chloride 103 (98-107) mmol/L Carbon Dioxide 22 (22-30) mmol/L BUN 10 (9-20) mg/dL Creatinine 0.88 (0.66-1.25) mg/dL Glucose 88 (74-99) mg/dL Calcium 8.7 (8.4-10.2) mg/dL Adrenal panel 09/28/16 Range/Units 07:17 Sodium 138 (137-145) mmol/L Potassium 4.1 (3.5-5.1) mmol/L Chloride 103 (98-107) mmol/L Carbon Dioxide 22 (22-30) mmol/L BUN 10 (9-20) mg/dL Creatinine 0.88 (0.66-1.25) mg/dL Glucose 88 (74-99) mg/dL Calcium 8.7 (8.4-10.2) mg/dL Total Bilirubin 3.2 H (0.2-1.3) mg/dL AST 109 H (17-59) U/L ALT 216 H (21-72) U/L Alkaline Phosphatase 127 H (38-126) U/L Total Protein 6.7 (6.3-8.2) g/dL Albumin 3.6 (3.5-5.0) g/dL
[2016-09-29] MEDS: HYDROmorphone 1 MG/ML 1 ML SYRINGE IV PRN ×5 (04:14→21:23)
[2016-09-29 06:49] LABS: Basophils % (A) 0 %; CH 32.6; CHCM 37.5; Eosinophils # (A) 0.2 k/uL (0-0.7); Eosinophils % (A) 2 %; HCT 39.3 % (39.0-53.0); HDW 3.02; HGB 14.5 gm/dL (13.0-17.5); Hyperchromasia Slight; Luc # (Auto) 0.15; Luc % (Auto) 2; Lymphocytes # (A) 1.7 k/uL (1.0-4.8); Lymphocytes % (A) 22 %; MCH 32.2 pg (25.0-35.0); MCHC 36.9 g/dL (31.0-37.0); MCV 87.2 fL (80.0-100.0); Mean Platelet Volume 6.9; Monocytes # (A) 0.6 k/uL (0-1.0); Monocytes % (A) 7 %; Neutrophils # (A) 5.3 k/uL (1.3-7.7); Neutrophils % (A) 67 %; RDW 12.8 % (11.5-15.5); WBC 7.9 k/uL (3.8-10.6); WBC (Perox) 7.57
[2016-09-29 06:50] LABS: INR 1.2 (<1.1); Prothrombin Time 12.3 sec (9.0-12.0)
[2016-09-29 07:03] LABS: ALT 167 U/L (21-72); AST 73 U/L (17-59); Alkaline Phosphatase 117 U/L (38-126); Amylase 141 U/L (30-110); Anion Gap 10 mmol/L; Blood Urea Nitrogen 11 mg/dL (9-20); Calcium 8.8 mg/dL (8.4-10.2); Carbon Dioxide 23 mmol/L (22-30); Chloride 106 mmol/L (98-107); Glucose 105 mg/dL (74-99); Non-African American GFR(MDRD) >60 (>60 ml/min/1.73 sqM); Potassium 3.9 mmol/L (3.5-5.1); Sodium 139 mmol/L (137-145); Total Bilirubin 3.4 mg/dL (0.2-1.3); Total Protein 6.9 g/dL (6.3-8.2)
[2016-09-29] MEDS: PANTOPRAZOLE 40 MG/10 ML VIAL IVP SCH (07:53)
[2016-09-29] MEDS: NICOTINE 21MG/24HR PATCH TRANSDERM SCH (07:53)
[2016-09-29] MEDS: ENOXAPARIN 40 MG/0.4 ML SYRINGE SQ SCH (07:53)
[2016-09-29] MEDS: SODIUM CHLORIDE 0.9% 1,000 ML IV SCH ×2 (07:54→15:44)
--- NOTE | 2016-09-29 09:00 | P.PN ---
Progress Note - Text The patient is feeling somewhat better. Less pain. Still little hungry. On examination he is afebrile awake alert in no distress. Abdomen is soft and less tender in the epigastric area no guarding or rebound or rigidity. No mass or organomegaly noted. Amylase and lipase are improved from yesterday. Levaquin however remains elevated at 3.4 and LFTs are mildly elevated. Impression acute gallstone pancreatitis improving. Hyperbilirubinemia may be secondary to common duct obstruction or stone. Recommendation. Agree with plans for ERCP in view of the elevated bilirubin that's persistent. Further management will depend on his clinical course and ERCP findings.
--- NOTE | 2016-09-29 11:14 | P.PN ---
Subjective Principal diagnosis: Epigastric pain elevated liver enzymes 46-year-old gentleman admitted with epigastric pain elevated liver enzymes with stones. LFTs improving except bilirubin was increased to 3.4 today. Patient was tentatively scheduled for ERCP for evaluation of possible choledocholithiasis however he received Lovenox. Presently the patient is resting fairly comfortably in bed. Tolerating a liquid diet. Plans to tentatively proceed with ERCP tomorrow morning unless LFTs are improved. Abdominal pain improved. General surgery following. Objective - Vital Signs Vital signs: Vital Signs Temp 98.0 F 09/29/16 07:00 Pulse 69 09/29/16 07:00 Resp 18 09/29/16 07:00 BP 132/73 09/29/16 07:00 Pulse Ox 98 09/29/16 07:00 Intake & Output 09/28/16 09/29/16 09/29/16 18:59 06:59 18:59 Intake Total 600 1840 Output Total 850 Balance 600 990 Weight 136.078 kg Intake: IV 600 Sodium Chloride 0.9% 1, 600 000 ml @ 75 mls/hr IV . [id number] [facility] Rx#:[id number] Intake, IV Titration 1125 Amount Sodium Chloride 0.9% 1, 1125 000 ml @ 75 mls/hr IV . [id number] [facility] Rx#:[id number] Oral 715 Output: Urine 850 Other: Voiding Method Toilet Urinal # Voids 2 - Exam General appearance: The patient is alert, oriented, in no acute distress. HET: Head is normocephalic and atraumatic. Pupils are equal and reactive. Oropharynx is clear without lesions. Neck: Supple without lymphadenopathy. Trachea midline. Heart: S1 S2. Regular rate and rhythm. Lungs: No crackles or wheezes are heard. Abdomen: Soft, very mild midepigastric tenderness, nondistended with bowel sounds. No peritoneal signs. No palpable organomegaly or masses. Extremities: Normal skin color and turgor. No cyanosis, rash, ulceration, clubbing, or edema. Radial and pedal pulses are 2/4 bilaterally. Neurological: No focal deficits. Strength and sensation are grossly intact. - Labs CBC & Chem 7: 09/29/16 06:36 09/29/16 06:36 Labs: Abnormal Lab Results - Last 24 Hours (Table) 09/29/16 09/29/16 Range/Units 06:36 06:36 PT 12.3 H (9.0-12.0) sec Glucose 105 H (74-99) mg/dL Total Bilirubin 3.4 H (0.2-1.3) mg/dL AST 73 H (17-59) U/L ALT 167 H (21-72) U/L Amylase 141 H (30-110) U/L Lipase 394 H (23-300) U/L Assessment and Plan (1) Pancreatitis Narrative/Plan: Probable gallstone pancreatitis choledocholithiasis possible passage of gallstone Status: Acute (2) Morbid obesity with BMI of 40.0-44.9, adult Status: Acute Plan: 1. Nothing by mouth after midnight. Repeat liver function tests in a.m. if improved ERCP not indicated if unchanged we'll proceed with ERCP tomorrow morning. Hold Lovenox. We'll continue to follow. Assessment and plan of care discussed with Dr. Rachel
--- NOTE | 2016-09-29 16:47 | P.PN ---
Subjective This is a 46-year-old male, patient of Dr. Parson. He has a known past medical history of chronic back and neck pain in which she chronically takes Percocet usually 3 a day. Patient reports having abdominal pain over the last 3 days. Pain started in the left lower quadrant and has come up into the right upper quadrant and epigastric area. Patient reports the pain was so severe that he was hunched over and came into the emergency room for further evaluation and treatment. On admission total bili was elevated at 4.1 and AST elevated 218 ALT 235 alk phos 142 amylase 1691 and lipase 11,576. Patient is noted to the hospital for acute pancreatitis he was started on IV fluids. GI service has been consulted. Patient denies any excessive alcohol use. Patient states that he drinks maybe a couple times a year. In the last time was several weeks ago. Patient reports no history of gallstones. Abdominal ultrasound showed a dense slightly enlarged liver may be fatty. As well as no cholelithiasis or acute cholecystitis. Sonographic Balbuena sign present. He's been started on IV fluids. He's has IV Dilaudid and Toradol for pain control. Patient is still complaining of abdominal pain otherwise no complaints at this time. Objective - Vital Signs Vital signs: Vital Signs Temp 99.6 F 09/29/16 15:00 Pulse 59 L 09/29/16 15:00 Resp 18 09/29/16 15:00 BP 124/74 09/29/16 15:00 Pulse Ox 95 09/29/16 15:00 Intake & Output 09/28/16 09/29/16 09/29/16 18:59 06:59 18:59 Intake Total 600 1840 1200 Output Total 850 Balance 491 589 2427 Weight 136.078 kg Intake: IV 600 600 Sodium Chloride 0.9% 1, 600 600 000 ml @ 75 mls/hr IV . [id number] [facility] Rx#:[id number] Intake, IV Titration 1125 Amount Sodium Chloride 0.9% 1, 1125 000 ml @ 75 mls/hr IV . [id number] [facility] Rx#:[id number] Oral 715 600 Output: Urine 850 Other: Voiding Method Toilet Toilet Urinal Urinal # Voids 2 3 - Labs CBC & Chem 7: 09/29/16 06:36 09/29/16 06:36 Labs: Abnormal Lab Results - Last 24 Hours (Table) 09/29/16 09/29/16 Range/Units 06:36 06:36 PT 12.3 H (9.0-12.0) sec Glucose 105 H (74-99) mg/dL Total Bilirubin 3.4 H (0.2-1.3) mg/dL AST 73 H (17-59) U/L ALT 167 H (21-72) U/L Amylase 141 H (30-110) U/L Lipase 394 H (23-300) U/L Assessment and Plan Plan: 1. Acute pancreatitis: Possibly a gallstone pancreatitis. Patient may have passed a stone since elevated LFTs. However will check triglyceride level. Consult GI service. Ultrasound showed No evidence of gallstones. There was a positive Balbuena sign. And slightly enlarged liver may be fatty. Continue IV fluids. Patient nothing by mouth. Monitor amylase, lipase and LFTs. Continue pain control with Dilaudid and Toradol 2. Chronic neck and back pain 3. Nicotine dependence: Patient chews tobacco. He's been placed on nicotine patch At this time gastroenterology and surgery Dr. Gongora are following Awaiting further input patient clinically is improving and lab results are significantly better
[2016-09-30] MEDS: HYDROmorphone 1 MG/ML 1 ML SYRINGE IV PRN ×4 (01:21→19:50)
[2016-09-30] MEDS: SODIUM CHLORIDE 0.9% 1,000 ML IV SCH ×3 (05:01→19:50)
[2016-09-30 07:03] LABS: Basophils % (A) 1 %; CHCM 36.5; Eosinophils # (A) 0.2 k/uL (0-0.7); Eosinophils % (A) 3 %; HCT 38.3 % (39.0-53.0); HDW 2.99; HGB 14.3 gm/dL (13.0-17.5); Luc # (Auto) 0.16; Luc % (Auto) 3; Lymphocytes # (A) 2.1 k/uL (1.0-4.8); Lymphocytes % (A) 34 %; MCH 32.8 pg (25.0-35.0); MCHC 37.2 g/dL (31.0-37.0); MCV 88.1 fL (80.0-100.0); Mean Platelet Volume 7.1; Monocytes # (A) 0.3 k/uL (0-1.0); Monocytes % (A) 5 %; Neutrophils # (A) 3.4 k/uL (1.3-7.7); Neutrophils % (A) 55 %; RBC 4.35 m/uL (4.30-5.90); RDW 12.9 % (11.5-15.5); WBC 6.1 k/uL (3.8-10.6); WBC (Perox) 6.51
[2016-09-30 07:14] LABS: ALT 124 U/L (21-72); AST 50 U/L (17-59); Alkaline Phosphatase 97 U/L (38-126); Amylase 91 U/L (30-110); Anion Gap 9 mmol/L; Blood Urea Nitrogen 8 mg/dL (9-20); Calcium 8.8 mg/dL (8.4-10.2); Carbon Dioxide 25 mmol/L (22-30); Chloride 107 mmol/L (98-107); Glucose 87 mg/dL (74-99); Non-African American GFR(MDRD) >60 (>60 ml/min/1.73 sqM); Sodium 141 mmol/L (137-145); Total Bilirubin 1.5 mg/dL (0.2-1.3); Total Protein 6.4 g/dL (6.3-8.2)
[2016-09-30] MEDS: NICOTINE 21MG/24HR PATCH TRANSDERM SCH ×2 (08:09→08:15)
--- NOTE | 2016-09-30 09:53 | P.PN ---
Subjective Principal diagnosis: Epigastric pain elevated liver enzymes 46-year-old gentleman admitted with epigastric pain elevated liver enzymes with stones. LFTs improving bilirubin 1.5 today. Presently the patient is resting fairly comfortably in bed. Lap cholecystectomy scheduled tomorrow with surgery. Abdominal pain improved. Objective - Vital Signs Vital signs: Vital Signs Temp 98.2 F 09/30/16 07:00 Pulse 54 L 09/30/16 07:00 Resp 18 09/30/16 07:00 BP 133/58 09/30/16 07:00 Pulse Ox 98 09/30/16 07:00 Intake & Output 09/29/16 09/30/16 09/30/16 18:59 06:59 18:59 Intake Total 1200 300 Balance 1200 300 Weight 139.706 kg Intake: IV 600 300 Sodium Chloride 0.9% 1, 600 300 000 ml @ 75 mls/hr IV . [id number] [facility] Rx#:[id number] Oral 600 Other: Voiding Method Toilet Urinal # Voids 3 1 - Exam General appearance: The patient is alert, oriented, in no acute distress. HET: Head is normocephalic and atraumatic. Pupils are equal and reactive. Oropharynx is clear without lesions. Neck: Supple without lymphadenopathy. Trachea midline. Heart: S1 S2. Regular rate and rhythm. Lungs: No crackles or wheezes are heard. Abdomen: Soft, very mild midepigastric tenderness, nondistended with bowel sounds. No peritoneal signs. No palpable organomegaly or masses. Extremities: Normal skin color and turgor. No cyanosis, rash, ulceration, clubbing, or edema. Radial and pedal pulses are 2/4 bilaterally. Neurological: No focal deficits. Strength and sensation are grossly intact. - Labs CBC & Chem 7: 09/30/16 06:47 09/30/16 06:47 Labs: Abnormal Lab Results - Last 24 Hours (Table) 09/30/16 09/30/16 Range/Units 06:47 06:47 Hct 38.3 L (39.0-53.0) % MCHC 37.2 H (31.0-37.0) g/dL BUN 8 L (9-20) mg/dL Total Bilirubin 1.5 H (0.2-1.3) mg/dL ALT 124 H (21-72) U/L Albumin 3.4 L (3.5-5.0) g/dL Lipase 330 H (23-300) U/L Assessment and Plan (1) Pancreatitis Narrative/Plan: Probable gallstone pancreatitis choledocholithiasis possible passage of gallstone Status: Acute (2) Morbid obesity with BMI of 40.0-44.9, adult Status: Acute Plan: 1. ERCP not indicated. Proceed with surgery. Will sign off. Assessment and plan of care discussed with Dr. Rachel.
--- NOTE | 2016-09-30 10:23 | P.PN ---
Subjective The patient's feeling better today continues to have some abdominal discomfort but improved from admission. GI saw him and did not feel ERCP was necessary as his bilirubin and liver function tests are decreasing. Objective - Vital Signs Vital signs: Vital Signs Temp 98.2 F 09/30/16 07:00 Pulse 54 L 09/30/16 07:00 Resp 18 09/30/16 07:00 BP 133/58 09/30/16 07:00 Pulse Ox 98 09/30/16 07:00 Intake & Output 09/29/16 09/30/16 09/30/16 18:59 06:59 18:59 Intake Total 1200 300 Balance 1200 300 Weight 139.706 kg Intake: IV 600 300 Sodium Chloride 0.9% 1, 600 300 000 ml @ 75 mls/hr IV . [id number] [facility] Rx#:[id number] Oral 600 Other: Voiding Method Toilet Urinal # Voids 3 1 - Constitutional General appearance: Present: cooperative, no acute distress - Gastrointestinal General gastrointestinal: Present: normal bowel sounds, soft, tenderness ( Minimal epigastric) - Labs CBC & Chem 7: 09/30/16 06:47 09/30/16 06:47 Labs: Abnormal Lab Results - Last 24 Hours (Table) 09/30/16 09/30/16 Range/Units 06:47 06:47 Hct 38.3 L (39.0-53.0) % MCHC 37.2 H (31.0-37.0) g/dL BUN 8 L (9-20) mg/dL Total Bilirubin 1.5 H (0.2-1.3) mg/dL ALT 124 H (21-72) U/L Albumin 3.4 L (3.5-5.0) g/dL Lipase 330 H (23-300) U/L Assessment and Plan (1) Gallstone pancreatitis Status: Acute (2) Cholelithiasis Status: Acute Plan: Probable laparoscopic cholecystectomy tomorrow. I discussed the case with Dr. Cid
[2016-09-30] MEDS: PANTOPRAZOLE 40 MG/10 ML VIAL IVP SCH (11:36)
--- NOTE | 2016-09-30 12:31 | P.PN ---
Subjective this is a 46-year-old male, patient of Dr. Parson. He has a known past medical history of chronic back and neck pain in which she chronically takes Percocet usually 3 a day. Patient reports having abdominal pain over the last 3 days. Pain started in the left lower quadrant and has come up into the right upper quadrant and epigastric area. Patient reports the pain was so severe that he was hunched over and came into the emergency room for further evaluation and treatment. On admission total bili was elevated at 4.1 and AST elevated 218 ALT 235 alk phos 142 amylase 1691 and lipase 11,576. Patient is noted to the hospital for acute pancreatitis he was started on IV fluids. GI service has been consulted. Patient denies any excessive alcohol use. Patient states that he drinks maybe a couple times a year. In the last time was several weeks ago. Patient reports no history of gallstones. Abdominal ultrasound showed a dense slightly enlarged liver may be fatty. As well as no cholelithiasis or acute cholecystitis. Sonographic Balbuena sign present. He's been started on IV fluids. He's has IV Dilaudid and Toradol for pain control. Patient still having some mild epigastric and right upper quadrant abdominal pain. Patient's LFTs and amylase and lipase are trending down. The patient was evaluated by GI service he is not requiring ERCP anymore. It looks like the patient has past the gallstone. He is evaluated by surgical service are planning a lap scopic cholecystectomy tomorrow Objective - Vital Signs Vital signs: Vital Signs Temp 98.2 F 09/30/16 07:00 Pulse 54 L 09/30/16 07:00 Resp 18 09/30/16 07:00 BP 133/58 09/30/16 07:00 Pulse Ox 98 09/30/16 07:00 Intake & Output 09/29/16 09/30/16 09/30/16 18:59 06:59 18:59 Intake Total 1200 300 Balance 1200 300 Weight 139.706 kg Intake: IV 600 300 Sodium Chloride 0.9% 1, 600 300 000 ml @ 75 mls/hr IV . [id number] [facility] Rx#:[id number] Oral 600 Other: Voiding Method Toilet Urinal # Voids 3 1 - Exam Head normocephalic Neck supple Lungs clear to auscultation bilaterally no wheezing or crackles Heart regular rate and rhythm S1-S2, no rub or gallop Abdomen is soft tenderness at epigastric and right upper quadrant nondistended positive bowel sounds no hepatosplenomegaly Extremities no edema Neuro alert and orientated to 3 - Labs CBC & Chem 7: 09/30/16 06:47 09/30/16 06:47 Labs: Abnormal Lab Results - Last 24 Hours (Table) 09/30/16 09/30/16 Range/Units 06:47 06:47 Hct 38.3 L (39.0-53.0) % MCHC 37.2 H (31.0-37.0) g/dL BUN 8 L (9-20) mg/dL Total Bilirubin 1.5 H (0.2-1.3) mg/dL ALT 124 H (21-72) U/L Albumin 3.4 L (3.5-5.0) g/dL Lipase 330 H (23-300) U/L Assessment and Plan Plan: 1. Acute pancreatitis: Possibly a gallstone pancreatitis. Choledocholithiasis with possible passage of gallstone. ERCP not indicated per surgical service. Laboratory results have shown some improvement. Patient is scheduled for left scalp cholecystectomy tomorrow 2. Chronic neck and back pain 3. Nicotine dependence: Patient chews tobacco. He's been placed on nicotine patch GI prophylaxis Protonix and DVT prophylaxis Lovenox on hold for surgery tomorrow I performed an examination of the patient and discussed their management with the physician Consumer Marketing Manager. I have reviewed the Physician Consumer Marketing Manager's notes and agree with the documented findings and plan of care
[2016-10-01] MEDS: HYDROmorphone 1 MG/ML 1 ML SYRINGE IV PRN ×6 (01:20→22:13)
[2016-10-01] MEDS: NICOTINE 21MG/24HR PATCH TRANSDERM SCH (08:28)
[2016-10-01] MEDS: PANTOPRAZOLE 40 MG/10 ML VIAL IVP SCH (08:28)
--- NOTE | 2016-10-01 08:36 | P.PN ---
Progress Note - Text The patient states he has some mild epigastric pain with rates to his back. His lipase is still elevated at 334. On exam is vital signs are stable. His abdomen soft. He is mild epigastric tenderness. Resolving gallstone hepatitis. We'll perform laparoscopic cholecystectomy in a.m.
[2016-10-01 08:59] LABS: Basophils % (A) 0 %; CH 31.9; CHCM 36.3; Eosinophils # (A) 0.1 k/uL (0-0.7); Eosinophils % (A) 2 %; HCT 38.6 % (39.0-53.0); HDW 2.95; HGB 13.6 gm/dL (13.0-17.5); Luc # (Auto) 0.16; Luc % (Auto) 3; Lymphocytes # (A) 1.9 k/uL (1.0-4.8); Lymphocytes % (A) 33 %; MCH 31.1 pg (25.0-35.0); MCHC 35.3 g/dL (31.0-37.0); MCV 88.2 fL (80.0-100.0); Monocytes # (A) 0.3 k/uL (0-1.0); Monocytes % (A) 5 %; Neutrophils # (A) 3.2 k/uL (1.3-7.7); Neutrophils % (A) 56 %; RBC 4.37 m/uL (4.30-5.90); RDW 13.2 % (11.5-15.5); WBC 5.7 k/uL (3.8-10.6); WBC (Perox) 5.57
[2016-10-01 09:28] LABS: ALT 116 U/L (21-72); AST 52 U/L (17-59); Alkaline Phosphatase 98 U/L (38-126); Amylase 103 U/L (30-110); Anion Gap 10 mmol/L; Blood Urea Nitrogen 9 mg/dL (9-20); Carbon Dioxide 23 mmol/L (22-30); Chloride 109 mmol/L (98-107); Glucose 84 mg/dL (74-99); Non-African American GFR(MDRD) >60 (>60 ml/min/1.73 sqM); Potassium 4.2 mmol/L (3.5-5.1); Sodium 142 mmol/L (137-145); Total Bilirubin 1.1 mg/dL (0.2-1.3); Total Protein 6.4 g/dL (6.3-8.2)
[2016-10-01] MEDS: ENOXAPARIN 40 MG/0.4 ML SYRINGE SQ SCH (09:53)
--- NOTE | 2016-10-01 11:00 | P.PN ---
Subjective this is a 46-year-old male, patient of Dr. Parson. He has a known past medical history of chronic back and neck pain in which she chronically takes Percocet usually 3 a day. Patient reports having abdominal pain over the last 3 days. Pain started in the left lower quadrant and has come up into the right upper quadrant and epigastric area. Patient reports the pain was so severe that he was hunched over and came into the emergency room for further evaluation and treatment. On admission total bili was elevated at 4.1 and AST elevated 218 ALT 235 alk phos 142 amylase 1691 and lipase 11,576. Patient is noted to the hospital for acute pancreatitis he was started on IV fluids. GI service has been consulted. Patient denies any excessive alcohol use. Patient states that he drinks maybe a couple times a year. In the last time was several weeks ago. Patient reports no history of gallstones. Abdominal ultrasound showed a dense slightly enlarged liver may be fatty. As well as no cholelithiasis or acute cholecystitis. Sonographic Balbuena sign present. He's been started on IV fluids. He's has IV Dilaudid and Toradol for pain control. Patient still having some mild epigastric and right upper quadrant abdominal pain. Patient's LFTs and amylase and lipase are trending down. The patient was evaluated by GI service he is not requiring ERCP anymore. It looks like the patient has past the gallstone. He is evaluated by surgical service are planning a lap scopic cholecystectomy tomorrow 10/01/2016 patient's abdominal pain has improved greatly. He is hungry. His labs Cholecystectomy has been postponed until tomorrow. Per surgical note lipase is still elevated. Patient reports improvement in his abdominal pain. He denies any nausea or vomiting. Reports having bowel movements. Denies any burning with urination. patient is requesting food Objective - Vital Signs Vital signs: Vital Signs Temp 98.2 F 10/01/16 07:00 Pulse 51 L 10/01/16 07:00 Resp 20 10/01/16 07:00 BP 115/64 10/01/16 07:00 Pulse Ox 96 10/01/16 07:00 Intake & Output 09/30/16 10/01/16 10/01/16 18:59 06:59 18:59 Intake Total 825 Balance 825 Weight 139.706 kg Intake: IV 825 Sodium Chloride 0.9% 1, 825 000 ml @ 75 mls/hr IV . [id number] [facility] Rx#:[id number] Other: Voiding Method Toilet Toilet Urinal Urinal # Voids 1 2 - Exam Head normocephalic Neck supple Lungs clear to auscultation bilaterally no wheezing or crackles Heart regular rate and rhythm S1-S2, no rub or gallop Abdomen is soft tenderness at epigastric and right upper quadrant nondistended positive bowel sounds no hepatosplenomegaly Extremities no edema Neuro alert and orientated to 3 - Labs CBC & Chem 7: 10/01/16 08:20 10/01/16 08:20 Labs: Abnormal Lab Results - Last 24 Hours (Table) 10/01/16 10/01/16 Range/Units 08:20 08:20 Hct 38.6 L (39.0-53.0) % Chloride 109 H (98-107) mmol/L ALT 116 H (21-72) U/L Lipase 321 H (23-300) U/L Assessment and Plan Plan: 1. Acute pancreatitis: Possibly a gallstone pancreatitis. Choledocholithiasis with possible passage of gallstone. ERCP not indicated per GI service. Laboratory results have showning improvement. Patient is scheduled for laparoscopic Cholecystectomy tomorrow. He will receive a low-fat diet today 2. Chronic neck and back pain 3. Nicotine dependence: Patient chews tobacco. He's been placed on nicotine patch GI prophylaxis Protonix and DVT prophylaxis Lovenox on hold for surgery tomorrow Patient is ambulating 2-[address] times [address] hallway. Also will add SCDs for DVT prophylaxis I performed an examination of the patient and discussed their management with the physician Ribbon Hand. I have reviewed the Physician Ribbon Hand's notes and agree with the documented findings and plan of care
[2016-10-01] MEDS: SODIUM CHLORIDE 0.9% 1,000 ML IV SCH ×2 (14:38→18:11)
[2016-10-02] MEDS: HYDROmorphone 1 MG/ML 1 ML SYRINGE IV PRN ×2 (02:38→07:31)
[2016-10-02] MEDS: ONDANSETRON 4 MG/2 ML VIAL IVP PRN (07:33)
[2016-10-02] MEDS ORDERED: PROPOFOL 10 MG/ML 20 ML VIAL IV ONE (08:02)
[2016-10-02] MEDS ORDERED: DEXAMETHASONE SOD PHOS (MDV) 100 MG/10 ML VIAL ONE (08:02)
[2016-10-02] MEDS ORDERED: ROCURONIUM BROMIDE 10 MG/ML 10 ML VIAL IV ONE (08:02)
[2016-10-02] MEDS ORDERED: LIDOCAINE 1% INJ 10MG/ML (20 ML MDV) ONE (08:02)
[2016-10-02] MEDS ORDERED: SUCCINYLCHOLINE CHLORIDE VIAL 200 MG/10 ML VIAL IV ONE (08:02)
[2016-10-02] MEDS ORDERED: MIDAZOLAM 2 MG/2 ML VIAL ONE (08:02)
[2016-10-02] MEDS ORDERED: HEPARIN SODIUM,PORCINE 5,000 UNIT/ML 1 ML VIAL ONE (08:02)
[2016-10-02] MEDS ORDERED: KETOROLAC 30 MG/ML 1 ML VIAL ONE (08:02)
[2016-10-02] MEDS ORDERED: ONDANSETRON 4 MG/2 ML VIAL ONE (08:02)
[2016-10-02] MEDS ORDERED: fentaNYL (PF) 50 MCG/ML 2 ML AMP ONE (08:02)
[2016-10-02] MEDS ORDERED: SODIUM CHLORIDE 0.9% 1,000 ML IV ONE (08:02)
[2016-10-02] MEDS ORDERED: NEOSTIGMINE 1 MG/ML 10 ML VIAL ONE (08:02)
[2016-10-02] MEDS ORDERED: HYDROmorphone (PF) 1 MG/ML ONE (08:02)
[2016-10-02] MEDS ORDERED: GLYCOPYRROLATE 0.2 MG/ML 2 ML VIAL ONE (08:02)
[2016-10-02] MEDS ORDERED: SODIUM CHLORIDE 0.9% 50 ML with ceFAZolin 3,000 MG IV ONE ×2 (08:13)
[2016-10-02] MEDS ORDERED: BUPIVACAIN-EPI 0.5%-1:200,000 30 ML VIAL SQ ONE (08:19)
[2016-10-02] MEDS ORDERED: LACTATED RINGERS 1,000 ML IV ONE (08:38)
[2016-10-02 08:40] LABS: Basophils % (A) 1 %; CH 32.1; CHCM 36.1; Eosinophils # (A) 0.1 k/uL (0-0.7); Eosinophils % (A) 3 %; HCT 39.8 % (39.0-53.0); HDW 2.93; HGB 13.8 gm/dL (13.0-17.5); Luc # (Auto) 0.15; Luc % (Auto) 3; Lymphocytes % (A) 37 %; MCH 31.1 pg (25.0-35.0); MCHC 34.8 g/dL (31.0-37.0); MCV 89.4 fL (80.0-100.0); Mean Platelet Volume 7.3; Monocytes # (A) 0.3 k/uL (0-1.0); Monocytes % (A) 5 %; Neutrophils # (A) 2.8 k/uL (1.3-7.7); Neutrophils % (A) 51 %; RBC 4.45 m/uL (4.30-5.90); RDW 13.3 % (11.5-15.5); WBC 5.4 k/uL (3.8-10.6); WBC (Perox) 5.33
[2016-10-02 08:48] LABS: ALT 122 U/L (21-72); AST 61 U/L (17-59); Alkaline Phosphatase 95 U/L (38-126); Amylase 111 U/L (30-110); Anion Gap 10 mmol/L; Blood Urea Nitrogen 9 mg/dL (9-20); Calcium 8.8 mg/dL (8.4-10.2); Carbon Dioxide 24 mmol/L (22-30); Chloride 107 mmol/L (98-107); Glucose 81 mg/dL (74-99); Non-African American GFR(MDRD) >60 (>60 ml/min/1.73 sqM); Potassium 4.1 mmol/L (3.5-5.1); Sodium 141 mmol/L (137-145); Total Bilirubin 1.2 mg/dL (0.2-1.3); Total Protein 6.7 g/dL (6.3-8.2)
[2016-10-02] MEDS ORDERED: NALOXONE 0.4 MG/ML 1 ML VIAL IV PRN (08:48)
[2016-10-02] MEDS ORDERED: ACETAMINOPHEN TAB 325 MG TAB PO PRN (08:48)
--- NOTE | 2016-10-02 08:48 | P.OP ---
Date of Procedure: 10/02/16 Preoperative Diagnosis: Gallstone pancreatitis Postoperative Diagnosis: Cholelithiasis Cholecystitis Procedure(s) Performed: Laparoscopic cholecystectomy Implants: Anesthesia: BRODIE Surgeon: Timothy Cid Estimated Blood Loss (ml): 5 Pathology: other (Gallbladder) Condition: stable Disposition: PACU Indications for Procedure: Operative Findings: Description of Procedure: The patient was placed on the operating table. The patient received a general endotracheal tube anesthesia. The patients abdomen was prepped and draped in the usual sterile fashion. Through an infraumbilical stab incision, the fascia of the anterior abdominal wall was grasped with a pair of Kochers and then the Veress needle was placed in the peritoneal cavity. Position of the Veress needle was confirmed with positive drop test. The abdomen was then insufflated. After adequate insufflation, the 10 mm trocar was placed in the peritoneal cavity. Following this the laparoscope was placed in the peritoneal cavity. The patient was placed in the head-up, right side up position and then a 5 mm trocar was placed in the right lateral and right subcostal position under direct visualization. A 8 mm trocar was placed in the epigastric position. The gallbladder was grasped in the fundus and infundibulum. Traction on the gallbladder was placed in the lateral and the cephalad positions. The triangle of Calot was visualized.. The cystic duct was bluntly dissected until the union of the cystic duct and common bile duct was seen. The cystic duct was then divided and sealed with the Harmonic scissors. A PDS Endoloop was then placed throughout the cystic duct stump. The cystic artery divided and sealed with the Harmonic scissors. The gallbladder was then removed from the liver bed using Harmonic scissors. The gallbladder was then extracted through the epigastric port site. Operative field was checked for any bleeding spots and Harmonic scissors was used to coagulate the liver bed. The abdomen was irrigated. The trocars were removed. The skin was closed using interrupted 3-0 Vicryl suture. Dermabond dressing were applied. The patient tolerated the procedure well.
[2016-10-02] MEDS ORDERED: HYDROmorphone 1 MG/ML 1 ML SYRINGE IVP ONE ×3 (09:12→09:29)
[2016-10-02 10:22] VITALS: RESP 16
[2016-10-02] MEDS: KETOROLAC 30 MG/ML 1 ML VIAL IVP SCH ×3 (10:50→20:54)
--- NOTE | 2016-10-02 12:36 | P.PN ---
Subjective Patient is doing well today. He underwent a breast copy cholecystectomy this morning. His pain is well controlled. Objective - Vital Signs Vital signs: Vital Signs Temp 99.2 F 10/02/16 08:56 Pulse 50 L 10/02/16 12:25 Resp 16 10/02/16 10:23 BP 131/79 10/02/16 12:25 Pulse Ox 96 10/02/16 12:25 Intake & Output 10/01/16 10/02/16 10/02/16 18:59 06:59 18:59 Intake Total 600 1050 Output Total 5 Balance 600 1045 Intake: IV 400 1050 Sodium Chloride 0.9% 1, 400 000 ml @ 75 mls/hr IV . [id number] MORIAH Rx#:[id number] Oral 200 Output: Estimated Blood Loss 5 Other: Voiding Method Toilet Toilet Toilet Urinal Urinal Urinal # Voids 3 1 - Exam General: The patient is awake and alert, in no distress Eye: there is normal conjunctiva bilaterally. Neck: The neck is supple, there is no JVD. Cardiovascular: Normal S1-S2, no S3-S4, no murmurs. Respiratory: Lungs clear to auscultation bilaterally Gastrointestinal: Abdomen is soft, nontender Musculoskeletal: There is no pedal edema. Neurological:. Speech is normal. Skin: Skin is warm and dry - Labs CBC & Chem 7: 10/02/16 07:40 10/02/16 07:40 Labs: Abnormal Lab Results - Last 24 Hours (Table) 10/02/16 Range/Units 07:40 AST 61 H (17-59) U/L ALT 122 H (21-72) U/L Amylase 111 H (30-110) U/L Lipase 376 H (23-300) U/L Assessment and Plan Plan: 1. Acute gallstone pancreatitis. Status post laparoscopic cholecystectomy 2. Chronic neck and back pain 3. Nicotine dependence: Patient chews tobacco. He's been placed on nicotine patch Anticipated discharge home tomorrow
[2016-10-02] MEDS: HYDROcodone/APAP 5-325MG 1 EACH TAB PO PRN ×2 (12:45→19:33)
[2016-10-02] MEDS: PANTOPRAZOLE 40 MG TABLET PO SCH (12:46)
[2016-10-02] MEDS: HEPARIN SODIUM,PORCINE 5,000 UNIT/ML 1 ML VIAL SQ SCH (20:54)
[2016-10-03] MEDS: HYDROcodone/APAP 5-325MG 1 EACH TAB PO PRN (01:33)
[2016-10-03] MEDS: KETOROLAC 30 MG/ML 1 ML VIAL IVP SCH ×2 (02:18→09:32)
[2016-10-03 07:30] LABS: Basophils % (A) 0 %; CH 31.6; CHCM 36.2; Eosinophils # (A) 0.1 k/uL (0-0.7); Eosinophils % (A) 1 %; HCT 36.5 % (39.0-53.0); HDW 3.01; HGB 13.5 gm/dL (13.0-17.5); Luc # (Auto) 0.21; Luc % (Auto) 2; Lymphocytes # (A) 2.1 k/uL (1.0-4.8); Lymphocytes % (A) 23 %; MCH 32.3 pg (25.0-35.0); MCHC 36.9 g/dL (31.0-37.0); MCV 87.7 fL (80.0-100.0); Mean Platelet Volume 6.9; Monocytes # (A) 0.4 k/uL (0-1.0); Monocytes % (A) 5 %; Neutrophils # (A) 6.1 k/uL (1.3-7.7); Neutrophils % (A) 69 %; RBC 4.16 m/uL (4.30-5.90); WBC 8.9 k/uL (3.8-10.6); WBC (Perox) 9.01
[2016-10-03 07:54] LABS: ALT 97 U/L (21-72); AST 55 U/L (17-59); Alkaline Phosphatase 86 U/L (38-126); Anion Gap 9 mmol/L; Blood Urea Nitrogen 8 mg/dL (9-20); Calcium 8.9 mg/dL (8.4-10.2); Carbon Dioxide 26 mmol/L (22-30); Chloride 106 mmol/L (98-107); Glucose 75 mg/dL (74-99); Non-African American GFR(MDRD) >60 (>60 ml/min/1.73 sqM); Potassium 3.9 mmol/L (3.5-5.1); Sodium 141 mmol/L (137-145); Total Protein 6.2 g/dL (6.3-8.2)
[2016-10-03 08:10] VITALS: BP 103/65; PULSE 50; TEMP 98.3
[2016-10-03] MEDS: HEPARIN SODIUM,PORCINE 5,000 UNIT/ML 1 ML VIAL SQ SCH (09:33)
[2016-10-03] MEDS: PANTOPRAZOLE 40 MG TABLET PO SCH (09:33)
[2016-10-03] MEDS: NICOTINE 21MG/24HR PATCH TRANSDERM SCH (09:34)
--- NOTE | 2016-10-03 12:42 | P.DS ---
Providers Date of admission: 09/27/16 02:40 Expected date of discharge: 10/03/16 Attending physician: Pema Desir Consults: 09/28/16 12:27 Consult Physician Routine Consulting Provider: Timothy Cid Consult Reason/Comments: Gallstone pancreatitis Do you want consulting provider notified?: Yes Primary care physician: Carmen Parson [facility] Course: This a 46-year-old male who was admitted to the hospital for gallstone hepatitis. Patient underwent laparoscopic cholecystectomy. Please see hospital chart for details. Procedures: Laparoscopic cholecystectomy Patient Condition at Discharge: Good Plan - Discharge Summary New Discharge Prescriptions: New Docusate [Colace] 100 mg PO BID #20 capsule HYDROcodone/APAP 7.5-325MG [[place] 7.5] 1 each PO Q4H PRN #30 tab PRN Reason: Pain No Action oxyCODONE HCL/ACETAMINOPHEN [Percocet 10-325 mg] 1 tab PO Q6HR PRN PRN Reason: Pain Discharge Medication List oxyCODONE HCL/ACETAMINOPHEN [Percocet 10-325 mg] 1 tab PO Q6HR PRN 09/26/16 [ History] Docusate [Colace] 100 mg PO BID #20 capsule 10/03/16 [Rx] HYDROcodone/APAP 7.5-325MG [[place] 7.5] 1 each PO Q4H PRN #30 tab 10/03/16 [Rx] Follow up Appointment(s)/Referral(s): Carmen Parson DO [Primary Care Provider] - 1-2 days Timothy Cid MD [STAFF PHYSICIAN] - 1 Week Patient Instructions/Handouts: Hydrocodone/Acetaminophen (By mouth), Laxative, Stool Softeners (By mouth), Pancreatitis (DC), Laparoscopic Cholecystectomy (DC) Activity/Diet/Wound Care/Special Instructions: Diet: Regular Activity: As tolerated Call office on Tuesday for follow up appointment
== END 2016-10-03 12:42 | disposition home or self-care (01) | DRG 418 ==
LOC: EC 22:34 → 5MS5E 09-27 02:40
PROVIDERS: ADMIT Internal Medicine; ATTEND Internal Medicine
PROC: 0FT44ZZ Resection of Gallbladder, Percutaneous Endoscopic Approach (ICD-10-PCS; principal; 2016-10-02 08:00)
DX: K85.10 Biliary acute pancreatitis without necrosis or infection (principal); K80.60 Calculus of gallbladder and bile duct with cholecystitis, unspecified, without obstruction; K76.0 Fatty (change of) liver, not elsewhere classified; E66.01 Morbid (severe) obesity due to excess calories; G89.29 Other chronic pain; K21.9 Gastro-esophageal reflux disease without esophagitis; K44.9 Diaphragmatic hernia without obstruction or gangrene; M54.2 Cervicalgia; M54.9 Dorsalgia, unspecified; Z68.41 Body mass index [BMI] 40.0-44.9, adult; F17.220 Nicotine dependence, chewing tobacco, uncomplicated; Z87.891 Personal history of nicotine dependence; Z88.5 Allergy status to narcotic agent
CPT/HCPCS: 36415; 74022; 74177; 76705; 80053; 80074; 81003; 82150; 82550; 82553; 83690; 84478; 84484; 85025; 85610; 88304; 96361; 96374; 96375; 99285

== ENCOUNTER 2016-11-11 16:10 | Emergency (ER) | payer OTHER ==
--- NOTE | 2016-11-11 16:43 | ED ---
Lower Extremity Injury HPI - General Stated Complaint: fall/ankle injury Time Seen by Provider: 11/11/16 16:31 Source: RN notes reviewed, old records reviewed - History of Present Illness Initial Comments: 46-year-old male presents the emergency Department chief complaint of right ankle and foot pain after stepping off the dock and rolling it. Patient reports that he has range of motion but is painful. He states his entire foot and ankle hurts. He denies any other specific injury related to the fall. He does have some minor abrasions over the lateral aspect of the ankle and the superficial abrasions over the right knee. He denies any previous ankle sprains or injuries. He states that this injury occurred at 8 AM he has been sitting on a couch waiting for his to bring him here. - Related Data Home Medications Medication Instructions Recorded Confirmed oxyCODONE HCL/ACETAMINOPHEN 1 tab PO Q6HR PRN 09/26/16 09/26/16 [Percocet 10-325 mg] Previous Rx's Medication Instructions Recorded Docusate [Colace] 100 mg PO BID #20 capsule 10/03/16 HYDROcodone/APAP 7.5-325MG [[place] 1 each PO Q4H PRN #30 tab 10/03/16 7.5] HYDROcodone/APAP 5-325MG [[place] 1 tab PO Q6HR PRN #10 tab 11/11/16 5-325] Allergies Allergy/AdvReac Type Severity Reaction Status Date / Time meperidine [From Demerol] Allergy Anaphylaxis Verified 09/26/16 23:23 propoxyphene Allergy Anaphylaxis Verified 09/26/16 23:23 Review of Systems ROS Statement: Those systems with pertinent positive or pertinent negative responses have been documented in the HPI. ROS Other: All systems not noted in ROS Statement are negative. Past Medical History Past Medical History: No Reported History Additional Past Medical History / Comment(s): Chronic back and neck pain. Hiatal hernia History of Any Multi-Drug Resistant Organisms: None Reported Past Surgical History: Orthopedic Surgery Additional Past Surgical History / Comment(s): hand sx. EGD Past Anesthesia/Blood Transfusion Reactions: No Reported Reaction Past Psychological History: No Psychological Hx Reported Smoking Status: Former smoker Past Alcohol Use History: Rare Past Drug Use History: None Reported - Past Family History Father Family Medical History: No Reported History General Exam - General Exam Comments Initial Comments: 46-year-old male. No acute distress. General appearance: alert, in no apparent distress Head exam: Present: atraumatic, normocephalic, normal inspection Eye exam: Present: normal appearance, PERRL, EOMI. Absent: scleral icterus, conjunctival injection, periorbital swelling ENT exam: Present: normal exam, mucous membranes moist Neck exam: Present: normal inspection. Absent: tenderness, meningismus, lymphadenopathy Respiratory exam: Present: normal lung sounds bilaterally. Absent: respiratory distress, wheezes, rales, rhonchi, stridor Cardiovascular Exam: Present: regular rate, normal rhythm, normal heart sounds. Absent: systolic murmur, diastolic murmur, rubs, gallop, clicks GI/Abdominal exam: Present: soft, normal bowel sounds. Absent: distended, tenderness, guarding, rebound, rigid Extremities exam: Present: normal inspection, full ROM, normal capillary refill. Absent: tenderness, pedal edema, joint swelling, calf tenderness Right Upper Leg exam: Present: normal inspection, full ROM Knee exam: Present: normal inspection, full ROM Lower Leg exam: Present: normal inspection, full ROM Ankle exam: Present: full ROM, abrasion (Her abrasions over the lateral aspect of the ankle.). Absent: normal inspection Foot/Toe exam: Present: normal inspection, full ROM, tenderness (Patient reports tenderness over the entire dorsum of the foot.) Neurovascular tendon exam: Present: no vascular compromise Gait: observed and normal Back exam: Present: normal inspection Neurological exam: Present: alert, oriented X3, CN II-XII intact Psychiatric exam: Present: normal affect, normal mood Skin exam: Present: warm, dry, intact, normal color. Absent: rash Course Vital Signs 11/11/16 16:32 Temperature 98.1 F Pulse Rate 58 L Respiratory 16 Rate Blood Pressure 130/66 O2 Sat by Pulse 98 Oximetry Procedures - Orthopedic Splinting/Casting Injury #1 Side: right Lower Extremity Injury Location: ankle Lower Extremity Immobilizer: AirCast, Miguel wrap Other Orthopedic Equipment: crutches Medical Decision Making - Medical Decision Making 46-year-old male presents the emergency Department chief complaint of right ankle and foot pain after stepping off the dock and rolling it. Patient reports that he has range of motion but is painful. He states his entire foot and ankle hurts. He denies any other specific injury related to the fall. He does have some minor abrasions over the lateral aspect of the ankle and the superficial abrasions over the right knee. His x-rays were reviewed and show no evidence of any acute [place]. Patient was given ankle stirrup splint Miguel wrap and advised to use crutches. Patient will be discharged with pain medication for a short course. Discussed close follow-up with primary care provider. Patient received treatment plan will comply. Return parameters were discussed. - Radiology Data Radiology results: report reviewed (NEgative for any fracture or dislocation) Disposition Clinical Impression: Right ankle sprain Disposition: HOME SELF-CARE Condition: Good Instructions: Ankle Sprain (ED) Additional Instructions: Patient is to rest, ice and elevate extremity. Walk with crutches. Return to the emergency department if any alarming signs or symptoms occur. Prescriptions: HYDROcodone/APAP 5-325MG [[place] 5-325] 1 tab PO Q6HR PRN #10 tab PRN Reason: Pain Referrals: Carmen Parson DO [Primary Care Provider] - 1-2 days Chapin Álvarez DO [Doctor of Osteopathic Medicine] - 1-2 days Time of Disposition: 17:21
--- NOTE | 2016-11-11 17:03 | XR ---
EXAMINATION TYPE: XR ankle complete RT DATE OF EXAM: 11/11/2016 COMPARISON: NONE HISTORY: Foot and ankle pain TECHNIQUE: 3 views FINDINGS: I see no fracture nor dislocation. Ankle mortise is anatomic. IMPRESSION: Negative right ankle exam.
--- NOTE | 2016-11-11 17:04 | XR ---
EXAMINATION TYPE: XR foot complete RT DATE OF EXAM: 11/11/2016 COMPARISON: NONE HISTORY: Foot pain TECHNIQUE: 3 views FINDINGS: I see no fracture nor dislocation. Joint spaces are normal. Metatarsals appear normal. IMPRESSION: Normal right foot. No evidence of inflammatory arthritis.
[2016-11-11] MEDS ORDERED: ACET/COD 300 MG/30 MG STARTER PACK 6 TAB BTL PO STA (17:19)
[2016-11-11 17:42] VITALS: BP 132/76; PULSE 60; RESP 18; TEMP 97.9
== END 2016-11-11 17:42 | disposition home or self-care (01) ==
LOC: EC 16:10
DX: S93.401A Sprain of unspecified ligament of right ankle, initial encounter (principal); Z87.891 Personal history of nicotine dependence; Z88.5 Allergy status to narcotic agent; W17.89XA Other fall from one level to another, initial encounter; X50.1XXA Overexertion from prolonged static or awkward postures, initial encounter; Y93.01 Activity, walking, marching and hiking; Y92.009 Unspecified place in unspecified non-institutional (private) residence as the place of occurrence of the external cause
CPT/HCPCS: 99284; 73610; 73630; L4350

== ENCOUNTER 2017-04-16 13:40 | Emergency (ER) | payer OTHER ==
[2017-04-16 13:46] VITALS: RESP 18
[2017-04-16] MEDS ORDERED: methylPREDNISolone SOD SUCCI 125 MG/2 ML VIAL IV STA (14:04)
[2017-04-16] MEDS ORDERED: IPRATROPIUM-ALBUTEROL 3 ML NEB INHALATION STA (14:04)
[2017-04-16] MEDS ORDERED: SODIUM CHLORIDE 0.9% 500 ML IV STA (14:04)
[2017-04-16] MEDS ORDERED: ASPIRIN 81 MG PO STA (14:06)
--- NOTE | 2017-04-16 14:11 | ED ---
SOB HPI - General Chief Complaint: Shortness of Breath Stated Complaint: Diff Breathing, Cough Time Seen by Provider: 04/16/17 13:58 Source: patient Mode of arrival: ambulatory Limitations: no limitations - History of Present Illness Initial Comments: Patient is a 46-year-old male who presents with a chief complaint of shortness of breath. Patient states that this is been going on for about a week. He describes difficulty breathing as he is having a cough. The patient states that he developed chest pressure about 3 days ago. He states that the pain is worse when he coughs, there are no alleviating factors. The patient states that his chest pressure has not changed in nature. He cannot identify any other aggravating or alleviating factors for this. Patient states that he has a history of hypertension, he takes lisinopril for it, however he admits that he is noncompliant. He did not have any other cardiac or pulmonary history. The patient is a former smoker, he quit 5 years ago. - Related Data Home Medications Medication Instructions Recorded Confirmed oxyCODONE HCL/ACETAMINOPHEN 1 tab PO Q6HR PRN 09/26/16 04/16/17 [Percocet 10-325 mg] Gabapentin [Neurontin] 100 mg PO DAILY 04/16/17 04/16/17 Lisinopril [Zestril] 10 mg PO DAILY 04/16/17 04/16/17 Naproxen Sodium [Aleve] 220 mg PO BID PRN 04/16/17 04/16/17 Previous Rx's Medication Instructions Recorded Albuterol Inhaler [Ventolin Hfa 2 puff INHALATION Q4HR #1 inhaler 04/16/17 Inhaler] Azithromycin 250 mg PO DAILY #4 tablet 04/16/17 predniSONE 50 mg PO DAILY #4 tablet 04/16/17 Allergies Allergy/AdvReac Type Severity Reaction Status Date / Time meperidine [From Demerol] Allergy Anaphylaxis Verified 04/16/17 14:42 propoxyphene Allergy Anaphylaxis Verified 04/16/17 14:42 Review of Systems ROS Statement: Those systems with pertinent positive or pertinent negative responses have been documented in the HPI. ROS Other: All systems not noted in ROS Statement are negative. Constitutional: Reports: chills Respiratory: Reports: cough, dyspnea Cardiovascular: Reports: chest pain Musculoskeletal: Reports: back pain (Chronic) Past Medical History Past Medical History: No Reported History Additional Past Medical History / Comment(s): Chronic back and neck pain. Hiatal hernia History of Any Multi-Drug Resistant Organisms: None Reported Past Surgical History: Cholecystectomy, Orthopedic Surgery Additional Past Surgical History / Comment(s): hand sx. EGD Past Anesthesia/Blood Transfusion Reactions: No Reported Reaction Past Psychological History: No Psychological Hx Reported Smoking Status: Former smoker Past Alcohol Use History: Rare Past Drug Use History: None Reported - Past Family History Father Family Medical History: No Reported History General Exam Limitations: no limitations General appearance: alert, in no apparent distress Head exam: Present: atraumatic, normocephalic Eye exam: Present: normal appearance ENT exam: Present: mucous membranes moist Neck exam: Absent: lymphadenopathy, thyromegaly Respiratory exam: Present: wheezes Cardiovascular Exam: Present: regular rate, normal rhythm GI/Abdominal exam: Present: soft. Absent: distended, tenderness, guarding Extremities exam: Present: normal inspection. Absent: pedal edema Back exam: Present: normal inspection Neurological exam: Present: alert, oriented X3, CN II-XII intact Psychiatric exam: Present: normal affect, normal mood Skin exam: Present: warm, dry, intact Course Vital Signs 04/16/17 04/16/17 04/16/17 13:42 14:48 14:57 Temperature 98.3 F Pulse Rate 78 82 80 Respiratory 18 Rate Blood Pressure 153/80 O2 Sat by Pulse 97 Oximetry 04/16/17 04/16/17 04/16/17 14:58 15:07 15:08 Temperature Pulse Rate 82 80 80 Respiratory Rate Blood Pressure O2 Sat by Pulse Oximetry 04/16/17 04/16/17 15:17 15:32 Temperature Pulse Rate 68 84 Respiratory 18 Rate Blood Pressure 124/64 O2 Sat by Pulse 100 Oximetry Medical Decision Making - Medical Decision Making Patient presents with a chief complaint of shortness of breath for one week, and chest pressure for 3 days. History and physical examination are consistent with bronchitis versus pneumonia. Given that patient is overweight, hypertensive, and has a history of smoking, I will send a cardiac workup along with basic workup and chest x-ray. EKG performed at 1427 shows normal sinus rhythm with a rate of 60 bpm. There is left axis deviation. Evaluation of the leads at 1 aVR and aVL shows gradual upsloping of the ST segment however it does not meet criteria for STEMI. 3:50 PM Lab evaluation of this patient is unremarkable. White count appears to be within normal limits, renal function is stable with electrolytes within normal limits. Flu PCR's are negative. Troponin is negative. At this time, given the duration of the patient's chest pressure, no repeat troponin is warranted at this time. After breathing treatments, patient states he feels better, he is breathing easier and the pain in his chest has improved. I discussed the findings with the patient. At this time, he will be treated for bronchitis with azithromycin, prednisone, and albuterol. He has are agreeable with this care plan. They were doing instructions to follow up with primary care or return to the emergency department if symptoms worsen or change. - Lab Data Result diagrams: 04/16/17 14:37 04/16/17 14:37 Lab Results 04/16/17 04/16/17 04/16/17 Range/Units 14:37 14:37 14:37 WBC 6.1 (3.8-10.6) k/uL RBC 4.85 (4.30-5.90) m/uL Hgb 14.8 (13.0-17.5) gm/dL Hct 42.5 (39.0-53.0) % MCV 87.7 (80.0-100.0) fL MCH 30.5 (25.0-35.0) pg MCHC 34.8 (31.0-37.0) g/dL RDW 12.6 (11.5-15.5) % Plt Count 201 (150-450) k/uL Neutrophils % 56 % Lymphocytes % 31 % Monocytes % 6 % Eosinophils % 4 % Basophils % 1 % Neutrophils # 3.4 (1.3-7.7) k/uL Lymphocytes # 1.9 (1.0-4.8) k/uL Monocytes # 0.3 (0-1.0) k/uL Eosinophils # 0.2 (0-0.7) k/uL Basophils # 0.0 (0-0.2) k/uL Hyperchromasia Slight Sodium 142 (137-145) mmol/L Potassium 4.2 (3.5-5.1) mmol/L Chloride 108 H (98-107) mmol/L Carbon Dioxide 24 (22-30) mmol/L Anion Gap 10 mmol/L BUN 12 (9-20) mg/dL Creatinine 0.80 (0.66-1.25) mg/dL Est GFR (MDRD) Af Amer >60 (>60 ml/min/1.73 sqM) Est GFR (MDRD) Non-Af >60 (>60 ml/min/1.73 sqM) Glucose 86 (74-99) mg/dL Calcium 8.5 (8.4-10.2) mg/dL Magnesium 1.8 (1.6-2.3) mg/dL Total Bilirubin 1.0 (0.2-1.3) mg/dL AST 31 (17-59) U/L ALT 52 (21-72) U/L Alkaline Phosphatase 84 (38-126) U/L Troponin I (0.000-0.034) ng/mL NT-Pro-B Natriuret Pep 29 pg/mL Total Protein 6.6 (6.3-8.2) g/dL Albumin 3.5 (3.5-5.0) g/dL Influenza Type A RNA (Not Detectd) Influenza Type B (PCR) (Not Detectd) 04/16/17 04/16/17 Range/Units 14:37 14:37 WBC (3.8-10.6) k/uL RBC (4.30-5.90) m/uL Hgb (13.0-17.5) gm/dL Hct (39.0-53.0) % MCV (80.0-100.0) fL MCH (25.0-35.0) pg MCHC (31.0-37.0) g/dL RDW (11.5-15.5) % Plt Count (150-450) k/uL Neutrophils % % Lymphocytes % % Monocytes % % Eosinophils % % Basophils % % Neutrophils # (1.3-7.7) k/uL Lymphocytes # (1.0-4.8) k/uL Monocytes # (0-1.0) k/uL Eosinophils # (0-0.7) k/uL Basophils # (0-0.2) k/uL Hyperchromasia Sodium (137-145) mmol/L Potassium (3.5-5.1) mmol/L Chloride (98-107) mmol/L Carbon Dioxide (22-30) mmol/L Anion Gap mmol/L BUN (9-20) mg/dL Creatinine (0.66-1.25) mg/dL Est GFR (MDRD) Af Amer (>60 ml/min/1.73 sqM) Est GFR (MDRD) Non-Af (>60 ml/min/1.73 sqM) Glucose (74-99) mg/dL Calcium (8.4-10.2) mg/dL Magnesium (1.6-2.3) mg/dL Total Bilirubin (0.2-1.3) mg/dL AST (17-59) U/L ALT (21-72) U/L Alkaline Phosphatase (38-126) U/L Troponin I <0.012 (0.000-0.034) ng/mL NT-Pro-B Natriuret Pep pg/mL Total Protein (6.3-8.2) g/dL Albumin (3.5-5.0) g/dL Influenza Type A RNA Not Detected (Not Detectd) Influenza Type B (PCR) Not Detected (Not Detectd) Disposition Clinical Impression: Bronchitis Disposition: HOME SELF-CARE Condition: Good Instructions: Acute Bronchitis (ED) Prescriptions: Albuterol Inhaler [Ventolin Hfa Inhaler] 2 puff INHALATION Q4HR #1 inhaler Azithromycin 250 mg PO DAILY #4 tablet predniSONE 50 mg PO DAILY #4 tablet Referrals: Carmen Parson DO [Primary Care Provider] - 1-2 days
[2017-04-16 14:51] LABS: Basophils % (A) 1 %; Eosinophils # (A) 0.2 k/uL (0-0.7); Eosinophils % (A) 4 %; HCT 42.5 % (39.0-53.0); HGB 14.8 gm/dL (13.0-17.5); Hyperchromasia Slight; Lymphocytes # (A) 1.9 k/uL (1.0-4.8); Lymphocytes % (A) 31 %; MCH 30.5 pg (25.0-35.0); MCHC 34.8 g/dL (31.0-37.0); MCV 87.7 fL (80.0-100.0); Monocytes # (A) 0.3 k/uL (0-1.0); Monocytes % (A) 6 %; Neutrophils # (A) 3.4 k/uL (1.3-7.7); Neutrophils % (A) 56 %; Platelet Count 201 k/uL (150-450); RBC 4.85 m/uL (4.30-5.90); RDW 12.6 % (11.5-15.5); WBC 6.1 k/uL (3.8-10.6)
[2017-04-16 15:00] LABS: ALT 52 U/L (21-72); AST 31 U/L (17-59); Albumin 3.5 g/dL (3.5-5.0); Alkaline Phosphatase 84 U/L (38-126); Anion Gap 10 mmol/L; Blood Urea Nitrogen 12 mg/dL (9-20); Calcium 8.5 mg/dL (8.4-10.2); Carbon Dioxide 24 mmol/L (22-30); Chloride 108 mmol/L (98-107); Glucose 86 mg/dL (74-99); Magnesium 1.8 mg/dL (1.6-2.3); Potassium 4.2 mmol/L (3.5-5.1); Sodium 142 mmol/L (137-145); Total Protein 6.6 g/dL (6.3-8.2)
--- NOTE | 2017-04-16 15:05 | XR ---
EXAMINATION TYPE: XR chest 2V DATE OF EXAM: 04/16/2017 COMPARISON: Chest x-ray September 27, 2016 HISTORY: Difficulty in breathing. TECHNIQUE: Frontal and lateral views of the chest are obtained. FINDINGS: Low lung volumes are redemonstrated. There is no focal air space opacity, pleural effusion, or pneumothorax seen. The cardiac silhouette size is within normal limits. The osseous structures are intact. IMPRESSION: No acute cardiopulmonary process. No significant change from prior.
[2017-04-16 15:19] VITALS: BP 124/64
[2017-04-16 15:32] VITALS: PULSE 84
[2017-04-16] MEDS ORDERED: AZITHROMYCIN 500 MG TAB PO STA (15:48)
[2017-04-16] MEDS ORDERED: predniSONE 50 MG TAB PO STA (15:48)
[2017-04-16 16:08] VITALS: TEMP 98.4
== END 2017-04-16 16:07 | disposition home or self-care (01) ==
LOC: EC 13:40
DX: J40 Bronchitis, not specified as acute or chronic (principal); R94.31 Abnormal electrocardiogram [ECG] [EKG]; I10 Essential (primary) hypertension; E66.9 Obesity, unspecified; Z68.41 Body mass index [BMI] 40.0-44.9, adult; Z87.891 Personal history of nicotine dependence; Z91.14 Patient's other noncompliance with medication regimen; Z88.5 Allergy status to narcotic agent; Z88.8 Allergy status to other drugs, medicaments and biological substances; Z79.899 Other long term (current) drug therapy
CPT/HCPCS: 99285; 96374; 96361 ×2; 36415; 94640 ×2; 93005; 83880; 80053; 83735; 84484; 85025; 87502; 71046; J2930; J7512

== ENCOUNTER → 2017-10-24 | Outpatient (CLI) | payer OTHER ==
[2017-10-24 13:47] VITALS: BP 125/81; PULSE 64; RESP 16
--- NOTE | 2017-10-24 14:44 | P.CONS ---
History of Present Illness - Reason for Consult Consult date: 10/24/17 Lower back pain - Chief Complaint Lower back and neck pain - History of Present Illness This is a 47-year-old male with history of mostly lower back pain that started 4 years ago after a work injury. The pain goes across his lower back and down the lower extremities to the toes as he states. He occasionally feels numbness and tingling in his feet. The pain prevents her from having a good night sleep. He denies any bowel or bladder dysfunction or any weakness in the lower extremities he also denies any weight loss recently. He had an MRI of the lumbar spine in 2016 which showed mild DDD and mild disc bulging between L1 to 3. The patient failed to respond to physical therapy previously. He has been using Percocet 10 mg 4 times a day and he gets this prescription from Dr. Burkett. He never tried any interventional pain procedures on his back. His neck pain also radiates down both arms to the fingers as he states but he denies any weakness in the upper extremities. Review of Systems Constitutional: Reports chronic pain Cardiovascular: Denies as per HPI, Denies chest pain, Denies claudication, Denies decreased exercise tolerance, Denies dyspnea on exertion, Denies edema, Denies high blood pressure, Denies irregular heart beat, Denies leg edema, Denies lightheadedness, Denies orthopnea, Denies palpitations, Denies paroxysmal nocturnal dyspnea, Denies phlebitis, Denies rapid heart beat, Denies shortness of breath, Denies syncope Respiratory: Denies as per HPI, Denies congestion, Denies cough, Denies cough with sputum, Denies dyspnea, Denies excessive sputum, Denies hemoptysis, Denies home oxygen, Denies pain, Denies pain on inspiration, Denies pleurisy, Denies respiratory infections, Denies sleep apnea, Denies snoring, Denies wheezing Musculoskeletal: Reports as per HPI Neurological: Reports as per HPI Past Medical History Past Medical History: No Reported History Additional Past Medical History / Comment(s): Chronic back and neck pain. Hiatal hernia History of Any Multi-Drug Resistant Organisms: None Reported Past Surgical History: Cholecystectomy, Orthopedic Surgery Additional Past Surgical History / Comment(s): hand sx. EGD Past Anesthesia/Blood Transfusion Reactions: No Reported Reaction Past Psychological History: No Psychological Hx Reported Smoking Status: Former smoker Past Alcohol Use History: Rare Past Drug Use History: None Reported - Past Family History Father Family Medical History: No Reported History Medications and Allergies Home Medications Medication Instructions Recorded Confirmed Type oxyCODONE HCL/ACETAMINOPHEN 1 tab PO Q6HR PRN 09/26/16 10/24/17 History [Percocet 10-325 mg] Albuterol Inhaler [Ventolin Hfa 2 puff INHALATION Q4HR #1 inhaler 04/16/1710/24 Rx Inhaler] Naproxen Sodium [Aleve] 220 mg PO BID PRN 04/16/17 10/24/17 History Ibuprofen [Advil] 400 mg PO BID 10/24/17 10/24/17 History Allergies Allergy/AdvReac Type Severity Reaction Status Date / Time meperidine [From Demerol] Allergy Anaphylaxis Verified 10/24/17 13:33 propoxyphene Allergy Anaphylaxis Verified 10/24/17 13:33 Physical Exam Vitals: Vital Signs Pulse Resp BP Pulse Ox 10/24/17 13:36 64 16 125/81 97 Intake and Output 10/23/17 10/24/17 10/24/17 22:59 06:59 14:59 Other: Weight 158.757 kg - Constitutional General appearance: morbidly obese - EENT Eyes: PERRLA ENT: no hard of hearing, no hearing grossly normal, no NA/AT, no normal oropharynx, no other, no pharyngeal erythema, no thrush, no tonsillar exudates, no tonsillar swelling - Respiratory Respiratory: bilateral: CTA - Cardiovascular Heart sounds: normal: S1, S2 - Neurologic Neurologic: CNII-XII intact - Musculoskeletal The patient is morbidly obese, in no apparent acute distress. Neuro exam of the upper and lower extremities showed normal muscle strength bilaterally and symmetrically. He has decreased but symmetrical knee reflexes and decreased but symmetrical ankle reflexes. He has absent triceps reflexes bilaterally. Had decreased but symmetrical biceps reflexes bilaterally. Jeremy's test negative bilaterally. He has tenderness in the lumbar paravertebral area bilaterally. No sacroiliac joint tenderness. Straight leg raising test negative bilaterally. - Psychiatric Psychiatric: A&O x's 3, appropriate affect Assessment and Plan Plan: This is a 47-year-old male with history of work injury that resulted and lower back pain mostly and to a lesser extent toe neck pain. The patient is here today mostly for his lower back pain. He failed to respond to physical therapy. He is on chronic opioids orally he get them from Dr. Vo. He never tried interventional pain procedures previously. The patient has mild changes on the MRI of the lumbar spine. 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 the procedure was explained to the patient and he was agreeable to it. I thank Dr. Vo for the consultation.
== END | disposition home or self-care (01) ==
LOC: PNWHC3 12:41
PROVIDERS: ATTEND Anesthesiology
DX: G89.29 Other chronic pain (principal); M54.5 Low back pain; M51.16 Intervertebral disc disorders with radiculopathy, lumbar region; M50.30 Other cervical disc degeneration, unspecified cervical region; M47.812 Spondylosis without myelopathy or radiculopathy, cervical region; M47.26 Other spondylosis with radiculopathy, lumbar region; E66.01 Morbid (severe) obesity due to excess calories; Z79.891 Long term (current) use of opiate analgesic; Z87.828 Personal history of other (healed) physical injury and trauma; Z87.891 Personal history of nicotine dependence; Z79.51 Long term (current) use of inhaled steroids; Z79.1 Long term (current) use of non-steroidal anti-inflammatories (NSAID); Z88.5 Allergy status to narcotic agent; Z88.6 Allergy status to analgesic agent
CPT/HCPCS: 99211

== ENCOUNTER 2017-11-09 06:45 | Day surgery (SDC) | payer OTHER ==
[2017-11-02 09:21] VITALS: BMI 50.2
[2017-11-09] MEDS ORDERED: LACTATED RINGERS 1,000 ML IV ONE (07:28)
[2017-11-09 07:32] VITALS: RESP 16; TEMP 98.5
--- NOTE | 2017-11-09 07:49 | P.PCN ---
Date of Procedure: 11/09/17 Surgeon: Abdoul Jordan Description of Procedure: PREOPERATIVE DIAGNOSIS: Lumbar radiculopathy POSTOPERATIVE DIAGNOSIS: Same PROCEDURE Lumbar epidural steroid injection under fluoroscopic guidance at the L5-S1 level. ANESTHESIA: Local with 1% lidocaine 3 ml and IV sedation with Versed 2 mg and 100 mg of fentanyl EBL: Minimal PROCEDURE INDICATION: This is a 47-year-old gentleman with a history of back pain bilaterally as well as left buttock and leg pain who presents today for his first lumbar epidural steroid injection. PROCEDURE DESCRIPTION / TECHNIQUE: The patient was seen and identified in the preoperative area. Risks, benefits , complications including but not limited to infections ,bleeding ,allergic reaction to the medications ,nerve damage and not complete pain relief , and alternatives were discussed with the patient. The patient agreed to proceed with the procedure and signed the consent. IV was started, and vital signs were stable. Patient was taken to the OR and time out was completed. The patient was placed in the prone position on procedure table and a pillow was placed under the abdomen to reduce lumbar lordosis. The lumbosacral area was prepped and draped in the usual sterile fashion.ere closely monitored during the procedure. Conscious sedation was used during the procedure to decrease patients anxiety. Vital signs was monitered during the entire procedure. Using anterior-posterior fluoroscopy, the L5-S1 interlaminar space was identified and the skin over this site was marked and then infiltrated with 1% lidocaine subcutaneously. Subsequently, a 20-gauge Tuohy epidural needle was inserted and advanced toward the epidural space using the Loss of resistance technique and guided by AP and lateral fluoroscopy. The correct needle position in the epidural space was verified with the injection of contrast and observing an excellent epidurogram with the epidural spread of the dye, after negative aspiration for blood and CSF and in the absence of paresthesias. Again after negative aspiration, a 6 ml mixture containing 20 mg of Dexamethasone was injected and a washout of epidurogram was seen. Needle was withdrawn intact , skin was cleansed, and bandages were applied. COMPLICATIONS: None DISPOSITION / PLANS: The patient was placed in a supine position and transferred to the recovery area in a stable condition for observation. There was no evidence of lower extremity motor or sensory deficit after the procedure. Patient was discharged from the recovery room after meeting discharge criteria. Home discharge instructions were given to the patient by the staff. The patient was reexamined prior to discharge. The patient will schedule a follow up in the clinic in 2-4 weeks.
[2017-11-09] MEDS ORDERED: LACTATED RINGERS 1,000 ML IV SCH (08:00)
[2017-11-09] MEDS ORDERED: IV FLUID CONTINUATION 1,000 ML IV ONE ×2 (08:05)
--- NOTE | 2017-11-09 08:13 | FL ---
EXAMINATION TYPE: FL guided pain mgmt statistic DATE OF EXAM: 11/09/2017 HISTORY: Flouroscopy time 3 seconds of fluoroscopy provided. IMPRESSION: 1. Fluoroscopy time.
[2017-11-09 08:30] VITALS: BP 113/71; PULSE 60
== END 2017-11-09 08:42 | disposition home or self-care (01) ==
LOC: ORPAIN 06:45
PROVIDERS: ATTEND Pain Medicine Pain Medicine
DX: G89.29 Other chronic pain (principal); M51.16 Intervertebral disc disorders with radiculopathy, lumbar region; M50.30 Other cervical disc degeneration, unspecified cervical region; E66.01 Morbid (severe) obesity due to excess calories; Z68.43 Body mass index [BMI] 50.0-59.9, adult; Z87.828 Personal history of other (healed) physical injury and trauma; Z87.891 Personal history of nicotine dependence; Z79.1 Long term (current) use of non-steroidal anti-inflammatories (NSAID); Z79.899 Other long term (current) drug therapy; Z88.5 Allergy status to narcotic agent
CPT/HCPCS: 62323; J2250; J3010

== ENCOUNTER 2017-11-16 08:26 | Emergency (ER) | payer OTHER ==
[2017-11-16 08:32] VITALS: PULSE 69; TEMP 97.9
[2017-11-16] MEDS ORDERED: SODIUM CHLORIDE 0.9% 1,000 ML IV STA (08:41)
[2017-11-16] MEDS ORDERED: ORPHENADRINE 30 MG/ML 2 ML VIAL IVP STA (08:41)
[2017-11-16] MEDS ORDERED: KETOROLAC 30 MG/ML 1 ML VIAL IVP STA (08:41)
[2017-11-16] MEDS ORDERED: MORPHINE SULFATE 4 MG/ML SYRINGE IV STA (08:41)
--- NOTE | 2017-11-16 08:45 | ED ---
General Adult HPI - General Chief complaint: Back Pain/Injury Stated complaint: Back pain Time Seen by Provider: 11/16/17 08:31 Source: patient, RN notes reviewed Mode of arrival: ambulatory Limitations: no limitations - History of Present Illness Initial comments: 47-year-old male presents emergency Department with chief complaint of right flank right back pain. Patient states that started around 3 AM this morning with no injury. Patient states is chronic back problems but states that he had no new injury and states this is not feeling like his normal back pain. Patient states he did take some pain medication prior arrival with no relief of symptoms. Patient denies any bowel bladder incontinence or retention. Denies any diarrhea, constipation, dysuria or hematuria. Patient's had a prior cholecystectomy. Patient states pain is worse with movement. Patient didn't make to having injections approximately one week ago on his lumbar spine. - Related Data Home Medications Medication Instructions Recorded Confirmed oxyCODONE HCL/ACETAMINOPHEN 1 tab PO Q6HR PRN 09/26/16 11/16/17 [Percocet 10-325 mg] Naproxen Sodium [Aleve] 220 mg PO BID PRN 04/16/17 11/16/17 Ibuprofen [Advil] 400 mg PO BID 10/24/17 11/16/17 Baclofen [Lioresal] 20 mg PO DAILY 11/16/17 11/16/17 Allergies Allergy/AdvReac Type Severity Reaction Status Date / Time meperidine [From Demerol] Allergy Anaphylaxis Verified 11/16/17 08:43 propoxyphene Allergy Anaphylaxis Verified 11/16/17 08:43 Review of Systems ROS Statement: Those systems with pertinent positive or pertinent negative responses have been documented in the HPI. ROS Other: All systems not noted in ROS Statement are negative. Past Medical History Past Medical History: No Reported History Additional Past Medical History / Comment(s): Chronic back and neck pain. Hiatal hernia History of Any Multi-Drug Resistant Organisms: None Reported Past Surgical History: Cholecystectomy, Orthopedic Surgery Additional Past Surgical History / Comment(s): hand sx. EGD Past Anesthesia/Blood Transfusion Reactions: No Reported Reaction Past Psychological History: No Psychological Hx Reported Smoking Status: Current every day smoker Past Alcohol Use History: Rare Past Drug Use History: None Reported - Past Family History Father Family Medical History: No Reported History General Exam Limitations: no limitations General appearance: alert, in no apparent distress Head exam: Present: atraumatic, normocephalic, normal inspection Neck exam: Present: normal inspection, full ROM. Absent: tenderness, meningismus, lymphadenopathy Respiratory exam: Present: normal lung sounds bilaterally. Absent: respiratory distress, wheezes, rales, rhonchi, stridor Cardiovascular Exam: Present: regular rate, normal rhythm, normal heart sounds. Absent: systolic murmur, diastolic murmur, rubs, gallop, clicks GI/Abdominal exam: Present: soft, normal bowel sounds. Absent: distended, tenderness, guarding, rebound, rigid Back exam: Present: full ROM, tenderness (Right flank right low back), CVA tenderness (R), paraspinal tenderness. Absent: CVA tenderness (L), vertebral tenderness Neurological exam: Present: alert, oriented X3, CN II-XII intact, reflexes normal. Absent: motor sensory deficit Skin exam: Present: warm, dry, intact, normal color. Absent: rash Course Vital Signs 11/16/17 11/16/17 08:28 09:14 Temperature 97.9 F Pulse Rate 69 Respiratory 18 Rate Blood Pressure 141/86 134/67 O2 Sat by Pulse 98 Oximetry EKG Findings - EKG Comments: EKG Findings:: EKG performed at 19:25 sinus bradycardia with left axis deviation rate of 55 FL 176 QRS 114 QT/QTC 436/417 Medical Decision Making - Medical Decision Making 47-year-old male sent in for right-sided back pain. Patient had lab work, urinalysis, EKG and CT of his abdomen pelvis was all unremarkable. Patient does have chronic back pain and this may be exacerbation of his back pain. Patient does have pain meds at home. Will be advised to continue his pain meds and to follow-up with his PCP. Return parameters were discussed. - Lab Data Result diagrams: 11/16/17 09:05 11/16/17 09:05 Lab Results 11/16/17 11/16/17 11/16/17 Range/Units 09:05 09:05 09:05 WBC 8.3 (3.8-10.6) k/uL RBC 4.88 (4.30-5.90) m/uL Hgb 15.0 (13.0-17.5) gm/dL Hct 42.1 (39.0-53.0) % MCV 86.2 (80.0-100.0) fL MCH 30.6 (25.0-35.0) pg MCHC 35.5 (31.0-37.0) g/dL RDW 12.9 (11.5-15.5) % Plt Count 199 (150-450) k/uL Neutrophils % 60 % Lymphocytes % 31 % Monocytes % 5 % Eosinophils % 1 % Basophils % 0 % Neutrophils # 5.0 (1.3-7.7) k/uL Lymphocytes # 2.6 (1.0-4.8) k/uL Monocytes # 0.4 (0-1.0) k/uL Eosinophils # 0.1 (0-0.7) k/uL Basophils # 0.0 (0-0.2) k/uL Sodium 138 (137-145) mmol/L Potassium 4.2 (3.5-5.1) mmol/L Chloride 106 (98-107) mmol/L Carbon Dioxide 24 (22-30) mmol/L Anion Gap 8 mmol/L BUN 16 (9-20) mg/dL Creatinine 0.84 (0.66-1.25) mg/dL Est GFR (CKD-EPI)AfAm >90 (>60 ml/min/1.73 sqM) Est GFR (CKD-EPI)NonAf >90 (>60 ml/min/1.73 sqM) Glucose 93 (74-99) mg/dL Calcium 8.8 (8.4-10.2) mg/dL Total Bilirubin 2.0 H (0.2-1.3) mg/dL AST 43 (17-59) U/L ALT 71 (21-72) U/L Alkaline Phosphatase 79 (38-126) U/L Troponin I <0.012 (0.000-0.034) ng/mL Total Protein 6.5 (6.3-8.2) g/dL Albumin 3.8 (3.5-5.0) g/dL Amylase 79 (30-110) U/L Lipase 83 (23-300) U/L Urine Color Urine Appearance (Clear) Urine pH (5.0-8.0) Ur Specific Plato (1.001-1.035) Urine Protein (Negative) Urine Glucose (UA) (Negative) Urine Ketones (Negative) Urine Blood (Negative) Urine Nitrite (Negative) Urine Bilirubin (Negative) Urine Urobilinogen (<2.0) mg/dL Ur Leukocyte Esterase (Negative) 11/16/17 Range/Units 09:05 WBC (3.8-10.6) k/uL RBC (4.30-5.90) m/uL Hgb (13.0-17.5) gm/dL Hct (39.0-53.0) % MCV (80.0-100.0) fL MCH (25.0-35.0) pg MCHC (31.0-37.0) g/dL RDW (11.5-15.5) % Plt Count (150-450) k/uL Neutrophils % % Lymphocytes % % Monocytes % % Eosinophils % % Basophils % % Neutrophils # (1.3-7.7) k/uL Lymphocytes # (1.0-4.8) k/uL Monocytes # (0-1.0) k/uL Eosinophils # (0-0.7) k/uL Basophils # (0-0.2) k/uL Sodium (137-145) mmol/L Potassium (3.5-5.1) mmol/L Chloride (98-107) mmol/L Carbon Dioxide (22-30) mmol/L Anion Gap mmol/L BUN (9-20) mg/dL Creatinine (0.66-1.25) mg/dL Est GFR (CKD-EPI)AfAm (>60 ml/min/1.73 sqM) Est GFR (CKD-EPI)NonAf (>60 ml/min/1.73 sqM) Glucose (74-99) mg/dL Calcium (8.4-10.2) mg/dL Total Bilirubin (0.2-1.3) mg/dL AST (17-59) U/L ALT (21-72) U/L Alkaline Phosphatase (38-126) U/L Troponin I (0.000-0.034) ng/mL Total Protein (6.3-8.2) g/dL Albumin (3.5-5.0) g/dL Amylase (30-110) U/L Lipase (23-300) U/L Urine Color Light Yellow Urine Appearance Clear (Clear) Urine pH 5.0 (5.0-8.0) Ur Specific Plato 1.009 (1.001-1.035) Urine Protein Negative (Negative) Urine Glucose (UA) Negative (Negative) Urine Ketones Negative (Negative) Urine Blood Negative (Negative) Urine Nitrite Negative (Negative) Urine Bilirubin Negative (Negative) Urine Urobilinogen <2.0 (<2.0) mg/dL Ur Leukocyte Esterase Negative (Negative) Disposition Clinical Impression: Back pain Disposition: HOME SELF-CARE Condition: Stable Instructions: Back Pain (ED) Additional Instructions: Please return to the Emergency Department if symptoms worsen or any other concerns. Is patient prescribed a controlled substance at d/c from ED?: No Referrals: Carmen Parson DO [Primary Care Provider] - 1-2 days Time of Disposition: 10:35
[2017-11-16 09:31] LABS: Basophils % (A) 0 %; Eosinophils # (A) 0.1 k/uL (0-0.7); Eosinophils % (A) 1 %; HCT 42.1 % (39.0-53.0); Lymphocytes # (A) 2.6 k/uL (1.0-4.8); Lymphocytes % (A) 31 %; MCH 30.6 pg (25.0-35.0); MCHC 35.5 g/dL (31.0-37.0); MCV 86.2 fL (80.0-100.0); Mean Platelet Volume 7.1; Monocytes # (A) 0.4 k/uL (0-1.0); Monocytes % (A) 5 %; Neutrophils % (A) 60 %; Platelet Count 199 k/uL (150-450); RBC 4.88 m/uL (4.30-5.90); RDW 12.9 % (11.5-15.5); WBC 8.3 k/uL (3.8-10.6)
[2017-11-16 09:41] LABS: Appearance,Urine Clear (Clear); Bilirubin,Urine Negative (Negative); Blood,Urine Negative (Negative); Color,Urine Light Yellow; Glucose,Urine (UA) Negative (Negative); Ketones,Urine Negative (Negative); Leukocyte Esterase,Urine Negative (Negative); Nitrite,Urine Negative (Negative); Protein,Urine Negative (Negative); Specific Gravity,Urine 1.009 (1.001-1.035); Urobilinogen,Urine <2.0 mg/dL (<2.0)
[2017-11-16 09:43] LABS: ALT 71 U/L (21-72); AST 43 U/L (17-59); Albumin 3.8 g/dL (3.5-5.0); Alkaline Phosphatase 79 U/L (38-126); Amylase 79 U/L (30-110); Anion Gap 8 mmol/L; Blood Urea Nitrogen 16 mg/dL (9-20); Calcium 8.8 mg/dL (8.4-10.2); Carbon Dioxide 24 mmol/L (22-30); Chloride 106 mmol/L (98-107); Glucose 93 mg/dL (74-99); Lipase 83 U/L (23-300); Potassium 4.2 mmol/L (3.5-5.1); Sodium 138 mmol/L (137-145); Total Protein 6.5 g/dL (6.3-8.2)
[2017-11-16] MEDS ORDERED: MORPHINE SULFATE 4 MG/ML SYRINGE IVP STA (10:01)
--- NOTE | 2017-11-16 10:21 | CT ---
EXAMINATION TYPE: CT abdomen pelvis w con DATE OF EXAM: 11/16/2017 COMPARISON: CT abdomen and pelvis 05/30/2016 HISTORY: Rt flank pain CT DLP: 3888.3 mGycm, Automated Exposure Control for Dose Reduction was Utilized. CONTRAST: CT scan of the abdomen and pelvis is performed without oral but with IV Contrast, patient injected wi th 100 mL of Isovue 300. FINDINGS: LUNG BASES: No significant abnormality is appreciated. LIVER/GB: Liver is diffusely low dense relative to spleen consistent with fatty infiltration. Interva l cholecystectomy changes are noted with new surgical clips. PANCREAS: No significant abnormality is seen. SPLEEN: No significant abnormality is seen. ADRENALS: No significant abnormality is seen. KIDNEYS: A few small simple appearing cysts are scattered throughout both kidneys. There is symmetric cortical medullary uptake and excretion from both kidneys without hydronephrosis identified bilatera lly. No distinct renal calculi are seen bilaterally. BOWEL: The evaluation of bowel is suboptimal secondary to lack of enteric contrast. Normal-appearing appendix is seen from base of cecum. There is some redundant sigmoid colon. There is no suspicious sm all or large bowel dilatation. PROSTATE/SEMINAL VESICLES: No gross abnormality seen. LYMPH NODES: No greater than 1cm abdominal or pelvic lymph nodes are appreciated. OSSEOUS STRUCTURES: There is moderate multilevel spurring in the thoracic spine. There is mild facet arthropathy lower lumbar levels. OTHER: No significant additional abnormality is seen. IMPRESSION: No renal calculi or hydronephrosis bilaterally. No significant new or acute finding is se en to account for patient's clinical symptoms.
[2017-11-16 10:54] VITALS: BP 129/65; RESP 16
== END 2017-11-16 10:54 | disposition home or self-care (01) ==
LOC: EC 08:26
DX: M54.5 Low back pain (principal); G89.29 Other chronic pain; R10.9 Unspecified abdominal pain; F17.200 Nicotine dependence, unspecified, uncomplicated; Z79.1 Long term (current) use of non-steroidal anti-inflammatories (NSAID); Z79.899 Other long term (current) drug therapy; Z88.5 Allergy status to narcotic agent; Z88.8 Allergy status to other drugs, medicaments and biological substances
CPT/HCPCS: 36415; 93005; 80053; 82150; 83690; 84484; 85025; 81003; 74177; 99284; 96374; 96375 ×2; 96376; 96361; J2270; J2360; J1885; Q9967

== ENCOUNTER 2017-11-23 09:44 | Day surgery (SDC) | payer OTHER ==
[2017-11-23] MEDS ORDERED: LACTATED RINGERS 1,000 ML IV SCH (10:38)
[2017-11-23 10:42] VITALS: RESP 18; TEMP 98
[2017-11-23] MEDS ORDERED: LIDOCAINE 1% 20 ML VIAL (10MG/ML) FOR IV START INTRADERMA ONE (10:52)
--- NOTE | 2017-11-23 11:37 | P.PCN ---
Date of Procedure: 11/23/17 Procedure(s) Performed: PREOPERATIVE DIAGNOSIS: 1- Lumbar radiculopathy POSTOPERATIVE DIAGNOSIS: 1-Lumbar radiculopathy PROCEDURE 1. Lumbar epidural steroid injection under fluoroscopic guidance at the L4-5 level. 2. Lumbar epidurogram. ANESTHESIA: Local with 1% lidocaine 3 ml and , moderate sedation with intravenous Versed 2 mg ,and fentanyle 100 Mcg EBL: Minimal PROCEDURE INDICATION: The patient with low back pain and radiculitis symptoms unresponsive to conservative treatment. Fluoroscopy was used to optimize visualization of the needle placement and to maximize safety. PROCEDURE DESCRIPTION / TECHNIQUE: The patient was seen and identified in the preoperative area. Risks, benefits , complications including but not limited to infections ,bleeding ,allergic reaction to the medications ,nerve damage and not complete pain releife , and alternatives were discussed with the patient. The patient agreed to proceed with the procedure and signed the consent. IV was started, and vital signs were stable. Patient was taken to the OR and time out was completed. The patient was placed in the prone position on procedure table and a pillow was placed under the abdomen to reduce lumbar lordosis. The lumbosacral area was prepped and draped in the usual sterile fashion.ere closely monitored during the procedure. Conscious sedation was used during the procedure to decrease patients anxiety. Vital signs was monitered during the entire procedure. Using anterior-posterior fluoroscopy, the L4-5 interlaminar space was identified and the skin over this site was marked and then infiltrated with 1% lidocaine subcutaneously. Subsequently, a 20-gauge Tuohy epidural needle was inserted and advanced toward the epidural space using the ``Loss of resistance technique and guided by AP and lateral fluoroscopy. The correct needle position in the epidural space was verified with the injection of 2 mL of the water soluble contrast dye Isovue 200 contrast and observing an excellent epidurogram with the epidural spread of the dye, after negative aspiration for blood and CSF and in the absence of paresthesias. Again after negative aspiration, a 6 ml mixture containing 80 mg Depo-medrol , and 2 ml of preservative free Normal Saline, and 2 ml of preservative free lidocaine 1% solution was injected and a washout of epidurogram was seen. Needle was withdrawn intact, skin was cleansed, and bandages were applied. COMPLICATIONS: None DISPOSITION / PLANS: The patient was placed in a supine position and transferred to the recovery area in a stable condition for observation. There was no evidence of lower extremity motor or sensory deficit after the procedure. Patient was discharged from the recovery room after meeting discharge criteria. Home discharge instructions were given to the patient by the staff. The patient was reexamined prior to discharge. The patient will schedule a follow up in the clinic in 2-4 weeks.
[2017-11-23] MEDS ORDERED: IV FLUID CONTINUATION 1,000 ML IV ONE (11:45)
--- NOTE | 2017-11-23 11:47 | FL ---
EXAMINATION TYPE: FL guided pain mgmt statistic DATE OF EXAM: 11/23/2017 HISTORY: Flouroscopy time 2 seconds of fluoroscopy provided. IMPRESSION: 1. Fluoroscopy time.
[2017-11-23 11:54] VITALS: BP 120/81; PULSE 65
== END 2017-11-23 12:15 | disposition home or self-care (01) ==
LOC: ORPAIN 09:44
PROVIDERS: ATTEND Specialist
DX: M54.16 Radiculopathy, lumbar region (principal); Z88.5 Allergy status to narcotic agent
CPT/HCPCS: 62323; J2250; J1030; J3010; Q9966

== ENCOUNTER → 2017-12-22 | Outpatient (CLI) | payer OTHER ==
[2017-12-22 14:30] VITALS: BP 117/78; PULSE 67; RESP 16
--- NOTE | 2017-12-22 14:55 | P.PN ---
Subjective Progress Note Date: 12/22/17 This is a 47-year-old gentleman with history of chronic lower back pain and heat pain. The patient received a lumbar epidural steroid injection twice which did not help his lower back pain. He denies any bowel or bladder dysfunction or any weakness in the lower extremities. Today, pt denies new-onset weakness, bowel/bladder incontinence, or any other signs or symptoms of cauda equina syndrome. There are no signs of acute intoxication, and no indications of medication diversion or overuse. In addition to above, 13-point review of systems is also negative for chest pain , shortness of breath, changes in vision, changes in hearing, new onset weakness , abdominal pain, diarrhea, extreme fatigue, malaise, fever, skin changes, homicidal or suicidal ideation, or bowel or bladder incontinence. Vital Signs: Reviewed in EMR Gen: AAOx3, NAD HEENT: PERRLA,hearing grossly normal Pulm: resp unlabored,CTA Heart:S1,S2, No Mur Neck: supple, trachea midline Neuro exam of the lower extremities: Tenderness in the paravertebral musculature: The lumbar area bilaterally Neuro: CN II-XII grossly intact, Imaging: Reviewed in EMR/chart Assessment: Morbid obesity Lumbar spondylosis without myelopathy Possible peripheral neuropathy Plan: 1. Explanation: Opioid and psychological risk scores were reviewed. Diagnoses , prognoses, and multiple treatment options including but not limited to physical therapy, interventional therapies, adjuvant medical therapies, narcotic medication therapies, and surgery were discussed with the patient and all questions were answered to the patient's satisfaction. 2. Opioid agreement: Signed with the patient and the patient is warned not to use opioids while driving or before driving and not to combine opioids with benzodiazepines or alcohol. 3. Counseling: The patient was counseled extensively on SMOKING CESSATION, BODY MASS INDEX, EXERCISE. Specifically, the patient was instructed regarding the importance of smoking cessation, obesity, and exercise in the context of both chronic pain and overall health. 4. Procedures: Scheduled for lumbar bilateral medial branch block under fluoroscopic guidance 5. Consultations: The patient may need to have an EMG on the lower extremities 6. Investigations: EMG of the lower extremities 7. Medications: None Objective - Vital Signs Vital signs: Vital Signs Temp Pulse 67 12/22/17 14:14 Resp 16 12/22/17 14:14 BP 117/78 12/22/17 14:14 Pulse Ox 97 12/22/17 14:14 Intake & Output 12/21/17 12/22/17 12/22/17 18:59 06:59 18:59 Weight 153.314 kg
== END ==
LOC: PNWHC3 14:07
PROVIDERS: ATTEND Anesthesiology
DX: M47.816 Spondylosis without myelopathy or radiculopathy, lumbar region (principal); E66.01 Morbid (severe) obesity due to excess calories
CPT/HCPCS: 99211

== ENCOUNTER 2018-01-16 06:49 | Day surgery (SDC) | payer OTHER ==
[2018-01-03 11:43] VITALS: BMI 50.6
[~2018-01-16 06:49] MED LIST: LACTATED RINGERS 1,000 ML IV SCH
[2018-01-16 08:04] VITALS: TEMP 98
[2018-01-16] MEDS ORDERED: LIDOCAINE 1% 20 ML VIAL (10MG/ML) FOR IV START INTRADERMA ONE (08:16)
--- NOTE | 2018-01-16 08:50 | P.PCN ---
Date of Procedure: 01/16/18 Surgeon: Lalit Wolf Pathology: none sent Condition: stable Disposition: PACU Description of Procedure: PREOPERATIVE DIAGNOSIS : 1- Lumbar spondylosis with Facet Arthropathy without myelopathy . 2- Lumber degenerative disc disease 3-morbid obesity POSTOPERATIVE DIAGNOSIS: 1- Lumbar spondylosis with Facet Arthropathy without myelopathy . 2- Lumber degenerative disc disease 3-morbid obesity PROCEDURE: Diagnostic bilateral L3 -4 , L4 -5 , and L5-S1 medial branch block under fluoroscopy ANESTHESIA: Local with 1% lidocaine; IV moderate conscious sedation with Versed 2 mg . EBL: Negligible COMPLICATION: None. PROCEDURE INDICATION: Chronic low back pain secondary to Facet arthropathy unresponsive to conservative treatment. PROCEDURE DESCRIPTION: the patient was seen and identified in the preop holding area , risks and benefits and possible complications of the procedure and alternatives were discussed with the patient, and the patient agreed to proceed with the procedure and signed the consent. IV was started and vital signs monitored during the procedure and fluoroscopy was used to maximize the benefit and accuracy of the needle placement, sedation was given to decrease patient anxiety, patient was taken to the procedure room and placed in prone position vital signs monitored. The patient was brought into the procedure room and placed in prone position. Skin was prepped with Chloraprep and draped in a sterile manner. Lidocaine 1 % was used to numb the skin up at the target points that were chosen as follows : at the L5-S1 level which corresponds to the dorsal ramus of L5 the target points were at the superior medial aspect of the sacral ala on each side of the spine on the AP view of fluoroscopy, and for theL2, L3 and L4 medial branches the target points were the connection between the transverse process and the superior to go process of L3, L4 and L5 respectively on the oblique views of fluoroscopy. I used 22-gauge 5 inch Quincke spinal needles for this procedure and after contacting bone at the target points mentioned above I injected 1 mL of a mixture of Kenalog 40 mg +5 MLS of Marcaine 0.5% PF . Patient tolerated procedure well. At the end of the procedure the needles removed and a bandage applied after the skin was cleaned the cleaning solution. patient was then taken to the recovery room in stable condition and monitored in the recovery room for 20-30 minutes and discharged home in stable condition after discharge criteria met .
[2018-01-16] MEDS ORDERED: IV FLUID CONTINUATION 1,000 ML IV ONE (09:00)
--- NOTE | 2018-01-16 09:04 | FL ---
Fluoroscopy HISTORY: Pain 12 seconds fluoroscopy time supplied to the referring clinician. 2 intraoperative C-arm images docum ent the procedure. See dictated report from anesthesia.
[2018-01-16 09:18] VITALS: BP 116/77; PULSE 56; RESP 16
== END 2018-01-16 09:47 | disposition home or self-care (01) ==
LOC: ORPAIN 06:49
PROVIDERS: ATTEND Anesthesiology
DX: G89.29 Other chronic pain (principal); M47.816 Spondylosis without myelopathy or radiculopathy, lumbar region; M51.36 Other intervertebral disc degeneration, lumbar region; E66.01 Morbid (severe) obesity due to excess calories; Z68.43 Body mass index [BMI] 50.0-59.9, adult; H91.90 Unspecified hearing loss, unspecified ear
CPT/HCPCS: 64493; 64494; 64495; J2250; J3301; 99152

== ENCOUNTER → 2018-01-31 | Day surgery (SDC) | payer OTHER ==
[2018-01-30 09:00] VITALS: BMI 50.6
[~2018-01-31] MED LIST changes: -LACTATED RINGERS 1,000 ML IV SCH; +SODIUM CHLORIDE 0.9% 500 ML 500 ML IV SCH
[2018-01-31 10:35] VITALS: TEMP 99.1
--- NOTE | 2018-01-31 11:40 | P.PCN ---
Date of Procedure: 01/31/18 Procedure(s) Performed: PREOPERATIVE DIAGNOSIS : 1- Lumbar spondylosis with Facet Arthropathy without myelopathy . 2- Lumber degenerative disc disease POSTOPERATIVE DIAGNOSIS: 1- Lumbar spondylosis with Facet Arthropathy without myelopathy . 2- Lumber degenerative disc disease PROCEDURE: Diagnostic bilateral L3 -4 , L4 -5 , and L5-S1 medial branch block under fluoroscopy ANESTHESIA: moderate sedation with intravenous Versed 2 mg and Fentanyl 100 mcg. EBL: Minimal COMPLICATION: None. IV FLUIDS: 100 mL of normal saline. PROCEDURE INDICATION: Chronic low back pain secondary to Facet arthropathy unresponsive to conservative treatment. PROCEDURE DESCRIPTION: the patient was seen and identified in the preop holding area , risks and benefits and possible complications of the procedure and alternative were discussed with the patient, and the patient agreed to proceed with the procedure and signed the consent IV was started and vital signs monitored during the procedure and fluoroscopy was used to maximize the benefit and accuracy of the needle placement, and sedation was given to decrease patient anxiety, patient was taken to the procedure room and placed in prone position vital signs monitored in the back prepped with chlorhexidine X3 then under strict sterile technique using a right oblique fluoroscopy ,the junction of the transverse process and the superior articulating process of the right L3- 4 , L4- 5, and L5-S1 vertebra which corresponding to the fluoroscopy image of the eye of the Randy dog on the block side for the medial branches and subsequently , after local infiltration of skin and subcu tissuies with Ropivacaine 0.5 % , one mL at each level , then 22-gauge 5 inches long , Quincke-type needles , 3 needle was used , each one of them placed at the junction of the base of the transverse process and the superior articular process at the appropriate level, and the needle was advanced until the periosteum contacted, needle placement confirmed with AP oblique and lateral view and after appropriate needle placement confirmed, and after negative aspiration for heme and CSF and there was no paresthesia 1-1/2 mL of Ropivacaine 0.5% mixed with 20 mg Kenalog , then half mL injected at each level after negative aspiration the needle subsequently removed and the same procedure repeated for the left side at left side at L3-4, L4- 5 and L5- S1 levels. At the end of the procedure and the needles removed and a bandage applied after the skin was cleaned the cleaning solution patient taken to recovery room in stable condition and monitors in the recovery room for 20-30 minutes and discharged home in stable condition after discharge criteria met and patient will follow up with the pain clinic in 2-4 weeks
[2018-01-31 11:59] VITALS: RESP 16
[2018-01-31 12:24] VITALS: BP 147/80; PULSE 69
--- NOTE | 2018-01-31 14:08 | FL ---
Fluoroscopy HISTORY: Pain 8 seconds fluoroscopy time supplied to the referring clinician. 3 intraoperative C-arm images docume nt the procedure. See dictated report from anesthesia.
== END | disposition home or self-care (01) ==
LOC: ORPAIN 09:39
PROVIDERS: ATTEND Specialist
DX: G89.29 Other chronic pain (principal); M47.816 Spondylosis without myelopathy or radiculopathy, lumbar region; M51.36 Other intervertebral disc degeneration, lumbar region
CPT/HCPCS: 64493; 64494; 64495; J2250; J3301; J3010; 99152

== ENCOUNTER → 2018-02-20 | Outpatient (CLI) | payer OTHER ==
[2018-02-20 15:14] VITALS: RESP 16
[2018-02-20 15:17] VITALS: BP 132/88; PULSE 57
--- NOTE | 2018-02-20 15:32 | P.PAINPG ---
Subjective Progress Note Date: 02/20/18 This is a follow-up visit for this 47 is augmented with a chronic history of severe low back pain diagnosed with lumbar radiculopathy and lumbar spondylosis with lumbar facet arthropathy without myelopathy, but the lumbar epidural steroid injection he had no benefit from it, and later on we did diagnostic medial branch block lumbar area on the first diagnostic medial branch block was done in 01/16/2018 the patient did drop more than 70% he reported that his VAS was 8-9/10 before the block dropped to 3/10 after the block, and a second diagnostic medial branch block was done on 01/31/2018 the pain was 6/10 before the block dropped to 0/10 after the block, patient continued to use Motrin [place] for pain, he denies any side effect of the medication he denies any excessive drowsiness or sleepiness he denies any motor or sensory deficit Objective - Vital Signs Vital signs: Vital Signs Temp Pulse 57 L 02/20/18 15:07 Resp 16 02/20/18 15:07 BP 132/88 02/20/18 15:07 Pulse Ox Intake & Output 02/19/18 02/20/18 02/20/18 18:59 06:59 18:59 Weight 148.778 kg - Exam Physical Examinations : 1-Constitutiona : Cooperative , not in acute distress . 2-HEENT : nech ; supple , no Lymphadenopathy , normal thyroid size . eyes : no ptosis , no icterus, no photophobia . ENT : normal of hearing , normal oropharynx , no Thrush . 3- Respiratory : Chest clear to auscultations Bilaterally , no wheezing , no Rhonchi . 4- Cardiovascular : regular rate and rhythem , S1 , S2 , no S3 , no S4. 5- Gastrointestinal : abdomen soft no tenderness , bowel sounds , no organomegally . 6- Genitourinary : Defferred . 7- neurologic : Cranial nerve II to XII intact , no focal neurological deffecit . 8-psychatric : alert , oriented X 3 , appropriate affect , intact judgment and insight . 9-Lymphatic : no Lymphadenopathy . 10- musculoskeltal : . Lumber spine moter stegnth lower extremities , thigh and legs 5/5 Right side , 5/5 Left side deep tendon reflexes : normal Knee Jerk , normal ankle Jerk positive lumber facet Loading Test Assessment and Plan Plan: Assessment and plan= chronic low back pain secondary to lumbar spondylosis with lumbar facet arthropathy without myelopathy Patient had good result after the diagnostic medial branch block lumbar area , he had more than 60% improvement in his low back pain He will be good candidate to have radiofrequency ablation of the medial branch lumbar area, will start with the left side first and would do the right side after that. Patient using Motrin when necessary he is using [place] prescription refills from Dr Serrano Time with Patient: Less than 30 PQRS Measure Charge Sheet Measure #130: Documentation of Current Meds in Medical Chart: Patient's medications documented in chart Measure #226: Tobacco Use: Screen & Cessation Intervention: Pt screened for tobacco use AND intervention given Measure #111: Pneumonia Vaccination: Pneumococcal vaccine NOT administered or previously given Measure #47: Advance Care Plan: Advance care planning discussed & documented, pt chose/unable to give Measure #412: Opioid Treatment Agreement: No documentation of signed opioid treatment agreement Measure #408: Opioid Therapy Follow-up Evaluation: Patient had NO f/u eval minimum every 3 months during opioid therapy Measure #317: Preventitive Care & Scrn High Bld Press & F/U: Normal blood pressure, f/u not required Measure #128: Body Mass Index (BMI) Screening & Follow-up: BMI documented ABOVE normal parameters - f/u documented Measure #131: Pain Assessment & Follow-up: Pain positive & plan documented, Follow-up scheduled Measure #431: Unhealthy Alcohol Use Preventative Care & Scrn: Patient not identified as an unhealthy alcohol user PQRS Narrative: Smoking Status Current every day smoker Do You Want the Pneumonia No Vaccine AT THIS TIME? Blood Pressure 132/88 Pain Intensity [Bilateral 3 Lower Back] Scale Used Numeric (1 - 10) Hx Alcohol Use (MH) No Home Medications: Ambulatory Orders oxyCODONE HCL/ACETAMINOPHEN [Percocet 10-325 mg] 1 tab PO Q6HR PRN 09/26/16 Naproxen Sodium [Aleve] 220 mg PO BID PRN 04/16/17 Ibuprofen [Advil] 400 mg PO BID 10/24/17 Baclofen [Lioresal] 20 mg PO DAILY 11/16/17 Controlled Substance Measures - Controlled Substance Measures Is patient prescribed a controlled substance at discharge?: No When asked, does pt state using other controlled substances?: No If prescribed controlled substance>3 days was MAPS reviewed?: No If Rx opioid, was Start Talking consent form obtained?: No If opioid is for acute pain is fill amount 7 days or less?: No Was information provided regarding opioid addiction?: No
== END | disposition home or self-care (01) ==
LOC: PNWHC3 13:45
PROVIDERS: ATTEND Specialist
DX: G89.29 Other chronic pain (principal); M54.5 Low back pain; M47.26 Other spondylosis with radiculopathy, lumbar region; M46.86 Other specified inflammatory spondylopathies, lumbar region; F17.200 Nicotine dependence, unspecified, uncomplicated; Z79.891 Long term (current) use of opiate analgesic; Z79.1 Long term (current) use of non-steroidal anti-inflammatories (NSAID); Z98.890 Other specified postprocedural states; Z71.6 Tobacco abuse counseling; Z79.899 Other long term (current) drug therapy
CPT/HCPCS: 99211

== ENCOUNTER 2018-03-23 08:43 | Day surgery (SDC) | payer OTHER ==
[2018-03-21 14:17] VITALS: BMI 48.7
[2018-03-23 09:19] VITALS: RESP 16; TEMP 97.6
[2018-03-23] MEDS ORDERED: LACTATED RINGERS 1,000 ML IV ONE (09:29)
--- NOTE | 2018-03-23 10:59 | P.PCN ---
Date of Procedure: 03/23/18 Procedure(s) Performed: PREOPERATIVE DIAGNOSIS: 1-Lumbar Spondylosis with Facet Arthropathy without myelopathy. POSTOPERATIVE DIAGNOSIS: 1- Lumbar Spondylosis with Facet Arthropathy without myelopathy. PROCEDURES : Right Radiofrequency thermocoagulation, L3-L4, L4-L5, and L5-S1 medial branch, with fluoroscopic guidance ANESTHESIA: Moderate sedation with intravenous versed 2 mg and fentaneyl 150 mcg, and local infiltration with Ropivacaine 0.5 % . EBL: Minimal PROCEDURE INDICATION: The patient with low back pain secondary to lumbar facet arthropathy who had more than 50% relief of her pain with previous diagnostic lumbar medial branch block with bupivacaine. PROCEDURE DESCRIPTION / TECHNIQUE: The patient was seen and identified in the preoperative area. Risks, benefits, complications, including but not limited to risk of infection ,bleeding , allergic reactions to the medications and no complete pain releife , and alternatives were discussed with the patient, the patient agreed to proceed with the procedure and signed the consent. IV was started. Vital signs remained stable throughout the procedure. Patient was taken to the OR and time out was completed. The patient was placed in the prone position on the procedure table. The lumber area was prepped and draped in the usual sterile fashion. . Vital signs were closely monitored during the procedure .IV sedation was used during the procedure to decrease patients anxiety. Using AP and then oblique fluoroscopy, the ``eye of the Randy dog corresponding to the connection between the superior and transverse articular processes of right L3, L4, and L5 were identified, marked, and localized with 1% lidocaine. Subsequently, a 18 -eg radiofrequency cannula with a 10- mm active tip was advanced guided by fluoroscopy to each of the``eyes of the Randy dog at right L3, L4, and L5. Each site then underwent sensory testing at 50 Hz and 0 to 1 volt and motor testing at 2.5 Hz and 0 to 3 volt with local stimulation, but no radicular symptoms down the legs. Thereafter the right L3-4, L4-5, and L5-S1 sites underwent radiofrequency thermocoagulation at 80 degrees celsius for 90 seconds after injecting 0.5 ml of PF Ropivacaine 1ml, then after the thermocoagulation done , 1 ml of the block solution containing Depo-Medrol 40 mg and 3 ml of Ropivacaine 0.5% was injected at the right L3-4 , L4-5 , and L5-S1, levels after negative aspiration of CSF and blood and with no paresthesias. Cannulas were retracted while injecting lidocaine 1% until the needle is out. At the end of the procedure, the skin was cleansed and bandages were applied. COMPLICATIONS: No acute complications. DISPOSITION / PLANS: The patient was placed in a supine position and transferred to the recovery area in a stable condition for observation and was discharged from the recovery room after meeting discharge criteria. Home discharge instructions given to the patient by the staff. The patient was reexamined prior to discharge. The patient will schedule a follow up in the clinic in 2-4 weeks.
[2018-03-23] MEDS ORDERED: IV FLUID CONTINUATION 1,000 ML IV ONE ×2 (11:09)
[2018-03-23 11:34] VITALS: BP 124/78; PULSE 59
--- NOTE | 2018-03-23 14:27 | FL ---
Fluoroscopy HISTORY: Pain 8 seconds fluoroscopy time supplied to the referring clinician. 3 intraoperative C-arm images docume nt the procedure. See dictated report from anesthesia.
== END 2018-03-23 11:50 | disposition home or self-care (01) ==
LOC: ORPAIN 08:43
PROVIDERS: ATTEND Specialist
DX: M47.816 Spondylosis without myelopathy or radiculopathy, lumbar region (principal)
CPT/HCPCS: 64635; 64636 ×2; J2250; J1030; J3010; 99152

== ENCOUNTER 2018-03-27 21:11 | Emergency (ER) | payer OTHER ==
[2018-03-27 21:15] VITALS: TEMP 98.3
[2018-03-27] MEDS ORDERED: HYDROmorphone 1 MG/ML 1 ML SYRINGE IVP STA (22:55)
[2018-03-27] MEDS ORDERED: KETOROLAC 60 MG/2 ML VIAL IM STA (22:55)
--- NOTE | 2018-03-27 23:02 | ED ---
Back Pain HPI - General Chief Complaint: Back Pain/Injury Stated Complaint: Back pain Time Seen by Provider: 03/27/18 22:46 Source: patient Limitations: no limitations - History of Present Illness Initial Comments: 's patient is a 47-year-old man who presents to be evaluated for worsening of his chronic back pain following a nerve ablation. The patient states that he had the procedure at the end last week, and since that time he has had worsening of his pain. He indicates pain at the site of the ablation. He states that the pain is all located in his back. There is no pain into the abdomen. There is no pain in the legs. He is not having any change in bladder or bowel function. He does state that the pain is worse when he tries to get up and walk. MD Complaint: back pain -: days(s) Similar Symptoms Previously: Yes Place: home Radiation: none Severity: severe Quality: aching Consistency: constant Improves With: none Worsens With: walking Context: other (After procedure) Associated Symptoms: denies other symptoms Treatments Prior to Arrival: prescription analgesics - Related Data Home Medications Medication Instructions Recorded Confirmed oxyCODONE HCL/ACETAMINOPHEN 1 tab PO Q6HR PRN 09/26/16 03/27/18 [Percocet 10-325 mg] Naproxen Sodium [Aleve] 220 mg PO BID PRN 04/16/17 03/27/18 Ibuprofen [Advil] 400 mg PO BID PRN 10/24/17 03/27/18 Baclofen [Lioresal] 20 mg PO BID 11/16/17 03/27/18 Allergies Allergy/AdvReac Type Severity Reaction Status Date / Time meperidine [From Demerol] Allergy Anaphylaxis Verified 03/27/18 21:23 propoxyphene Allergy Anaphylaxis Verified 03/27/18 21:23 Review of Systems ROS Statement: Those systems with pertinent positive or pertinent negative responses have been documented in the HPI. ROS Other: All systems not noted in ROS Statement are negative. Constitutional: Denies: fever, chills Respiratory: Denies: cough, dyspnea Cardiovascular: Denies: chest pain, palpitations, orthopnea, edema Gastrointestinal: Denies: abdominal pain, vomiting, diarrhea, constipation Genitourinary: Denies: other (No hesitancy or difficulty initiating urination. No loss of continence) Musculoskeletal: Reports: as per HPI, back pain Skin: Denies: rash Neurological: Denies: weakness, numbness, paresthesias Past Medical History Past Medical History: No Reported History Additional Past Medical History / Comment(s): Chronic back and neck pain. Hiatal hernia History of Any Multi-Drug Resistant Organisms: None Reported Past Surgical History: Cholecystectomy, Orthopedic Surgery Additional Past Surgical History / Comment(s): hand sx. EGD, PAIN PROCEDURES Past Anesthesia/Blood Transfusion Reactions: No Reported Reaction Past Psychological History: No Psychological Hx Reported Smoking Status: Current every day smoker - Past Family History Father Family Medical History: No Reported History General Exam Limitations: no limitations General appearance: alert, in no apparent distress, obese Head exam: Present: atraumatic, normocephalic Respiratory exam: Present: normal lung sounds bilaterally. Absent: respiratory distress, wheezes, rales, rhonchi, stridor Cardiovascular Exam: Present: regular rate, normal rhythm, normal heart sounds. Absent: systolic murmur, diastolic murmur, rubs, gallop GI/Abdominal exam: Present: soft. Absent: tenderness, guarding, rebound, rigid , pulsatile mass Extremities exam: Present: normal inspection. Absent: pedal edema, calf tenderness Back exam: Present: paraspinal tenderness. Absent: CVA tenderness (R), CVA tenderness (L), vertebral tenderness Neurological exam: Present: alert, reflexes normal. Absent: motor sensory deficit Skin exam: Present: warm, dry, intact, normal color. Absent: rash Course Vital Signs 03/27/18 21:12 Temperature 98.3 F Pulse Rate 82 Respiratory 16 Rate Blood Pressure 178/95 O2 Sat by Pulse 98 Oximetry Disposition Clinical Impression: Mid back pain Disposition: HOME SELF-CARE Condition: Good Instructions: Chronic Back Pain (ED) Is patient prescribed a controlled substance at d/c from ED?: No Referrals: Carmen Parson DO [Primary Care Provider] - 1-2 days Nnamdi Flores MD [STAFF PHYSICIAN] - 1-2 days
[2018-03-28] MEDS ORDERED: HYDROmorphone 1 MG/ML 1 ML SYRINGE IM STA (00:18)
[2018-03-28 00:51] VITALS: BP 131/72; PULSE 63; RESP 18
== END 2018-03-28 00:49 | disposition home or self-care (01) ==
LOC: EC 21:11
DX: M54.9 Dorsalgia, unspecified (principal); G89.18 Other acute postprocedural pain; G89.29 Other chronic pain; F17.200 Nicotine dependence, unspecified, uncomplicated; Z88.5 Allergy status to narcotic agent; Z79.899 Other long term (current) drug therapy
CPT/HCPCS: 99283; 96374; 96372 ×2; J1885; J1170

== ENCOUNTER → 2018-05-03 | Outpatient (CLI) | payer OTHER ==
[2018-05-03 14:22] VITALS: BP 130/80; PULSE 80; RESP 16
--- NOTE | 2018-05-03 14:47 | P.PN ---
Subjective Progress Note Date: 05/03/18 This is a follow-up visit for this 47 is augmented with a chronic history of severe low back pain diagnosed with lumbar radiculopathy and lumbar spondylosis with lumbar facet arthropathy without myelopathy, but the lumbar epidural steroid injection he had no benefit from it, and later on we have done radiofrequency ablation of the medial branch block lumbar area patient continued to have severe low back pain and numbness and tingling sensation in the lower extremity, intensity of the pain interferes with the quality of life , patient continued to use Motrin ,and [place] for the pain, he denies any side effect of the medication he denies any excessive drowsiness or sleepiness he denies any motor or sensory deficit Physical Examinations : 1-Constitutiona : Cooperative , not in acute distress . 2-HEENT : nech ; supple , no Lymphadenopathy , normal thyroid size . eyes : no ptosis , no icterus, no photophobia . ENT : normal of hearing , normal oropharynx , no Thrush . 3- Respiratory : Chest clear to auscultations Bilaterally , no wheezing , no Rhonchi . 4- Cardiovascular : regular rate and rhythem , S1 , S2 , no S3 , no S4. 5- Gastrointestinal : abdomen soft no tenderness , bowel sounds , no organomegally . 6- Genitourinary : Defferred . 7- neurologic : Cranial nerve II to XII intact , no focal neurological deffecit . 8-psychatric : alert , oriented X 3 , appropriate affect , intact judgment and insight . 9-Lymphatic : no Lymphadenopathy . 10- musculoskeltal : . Lumber spine moter stegnth lower extremities , thigh and legs 5/5 Right side , 5/5 Left side deep tendon reflexes : normal Knee Jerk , normal ankle Jerk positive lumber facet Loading Test Straight leg raising test positive at 30 bilaterally. Jeremy's test positive bilaterally. Severe tenderness over the left sacroiliac joint Assessment and Plan Plan: Assessment and plan= lumbar spondylosis with lumbar facet arthropathy without myelopathy, lumbar degenerative disc disease Patient continued to have severe low back pain and lower extremity numbness and tingling sensation, after lumbar epidural steroid injections, and after diagnostic medial branch block, I have discussion with the patient about referring her for physical therapy versus surgical interventions,Patient want me to refer him to, Dr. Stanford neurosurgeon for evaluation for possible surgical intervention Patient using Motrin when necessary he is using [place] prescription refills from Dr Serrano Time with Patient: Less than 30 PQRS Measure Charge Sheet Measure #130: Documentation of Current Meds in Medical Chart: Patient's medications documented in chart Measure #226: Tobacco Use: Screen & Cessation Intervention: Pt screened for tobacco use AND intervention given Measure #111: Pneumonia Vaccination: Pneumococcal vaccine NOT administered or previously given Measure #47: Advance Care Plan: Advance care planning discussed & documented, pt chose/unable to give Measure #412: Opioid Treatment Agreement: No documentation of signed opioid treatment agreement Measure #408: Opioid Therapy Follow-up Evaluation: Patient had NO f/u eval minimum every 3 months during opioid therapy Measure #317: Preventitive Care & Scrn High Bld Press & F/U: Normal blood pressure, f/u not required Measure #128: Body Mass Index (BMI) Screening & Follow-up: BMI documented ABOVE normal parameters - f/u documented Measure #131: Pain Assessment & Follow-up: Pain positive & plan documented, Follow-up scheduled Measure #431: Unhealthy Alcohol Use Preventative Care & Scrn: Patient not identified as an unhealthy alcohol user PQRS Narrative: - Controlled Substance Measures Is patient prescribed a controlled substance at discharge?: No When asked, does pt state using other controlled substances?: No If prescribed controlled substance>3 days was MAPS reviewed?: No If Rx opioid, was Start Talking consent form obtained?: No If opioid is for acute pain is fill amount 7 days or less?: No Was information provided regarding opioid addiction?: No Objective - Vital Signs Vital signs: Vital Signs Temp Pulse 80 05/03/18 14:11 Resp 16 05/03/18 14:11 BP 130/80 05/03/18 14:11 Pulse Ox 96 05/03/18 14:11 Intake & Output 05/02/18 05/03/18 05/03/18 18:59 06:59 18:59 Weight 154.221 kg
== END ==
LOC: PNWHC3 13:48
PROVIDERS: ATTEND Specialist
DX: M51.36 Other intervertebral disc degeneration, lumbar region (principal); M47.816 Spondylosis without myelopathy or radiculopathy, lumbar region; M46.96 Unspecified inflammatory spondylopathy, lumbar region; Z79.891 Long term (current) use of opiate analgesic
CPT/HCPCS: 99211

== ENCOUNTER → 2018-05-11 | Outpatient (CLI) | payer OTHER | LOC: RADMRIMAIN 10:26 | PROVIDERS: ATTEND Specialist | DX: Z53.9 Procedure and treatment not carried out, unspecified reason (principal) ==

== ENCOUNTER 2018-06-08 21:21 | Emergency (ER) | payer OTHER ==
[2018-06-08 21:51] VITALS: RESP 18
--- NOTE | 2018-06-08 22:57 | ED ---
Abdominal Pain HPI - General Chief Complaint: Abdominal Pain Stated Complaint: Abd pain Time Seen by Provider: 06/08/18 22:46 Source: patient, RN notes reviewed, old records reviewed Mode of arrival: ambulatory Limitations: no limitations - History of Present Illness Initial Comments: This is a 47 showed male the ER for evaluation. Patient resents today for evaluation regards to abdominal pain, left lower quadrant abdominal pain. No prior history of bowel pain no bowel surgeries. No prior colonoscopy. Patient is recent travel history no sick contacts. No fever cough or congestion. Pain is been going on for one week with no improvement. Nothing seems to make it worse or better. No bowel or bladder issues. MD Complaint: abdominal pain (Left lower quadrant) -: week(s) Location: LLQ Radiation: LLQ Migration to: no migration Severity: moderate Severity scale (1-10): 4 Quality: cramping, aching Consistency: constant Improves With: nothing Worsens With: nothing Associated Symptoms: denies other symptoms - Related Data Home Medications Medication Instructions Recorded Confirmed oxyCODONE HCL/ACETAMINOPHEN 1 tab PO Q6HR PRN 09/26/16 06/08/18 [Percocet 10-325 mg] Baclofen [Lioresal] 20 mg PO BID 11/16/17 06/08/18 Allergies Allergy/AdvReac Type Severity Reaction Status Date / Time meperidine [From Demerol] Allergy Anaphylaxis Verified 06/08/18 22:51 propoxyphene Allergy Anaphylaxis Verified 06/08/18 22:51 Review of Systems ROS Statement: Those systems with pertinent positive or pertinent negative responses have been documented in the HPI. ROS Other: All systems not noted in ROS Statement are negative. Past Medical History Past Medical History: No Reported History Additional Past Medical History / Comment(s): Chronic back and neck pain. Hiatal hernia History of Any Multi-Drug Resistant Organisms: None Reported Past Surgical History: Cholecystectomy, Orthopedic Surgery Additional Past Surgical History / Comment(s): hand sx. EGD, PAIN PROCEDURES Past Anesthesia/Blood Transfusion Reactions: No Reported Reaction Past Psychological History: No Psychological Hx Reported Smoking Status: Current every day smoker Past Alcohol Use History: Rare Past Drug Use History: None Reported - Past Family History Father Family Medical History: No Reported History General Exam Limitations: no limitations General appearance: alert, in no apparent distress Head exam: Present: atraumatic, normocephalic, normal inspection Eye exam: Present: normal appearance, PERRL, EOMI. Absent: scleral icterus, conjunctival injection, periorbital swelling ENT exam: Present: normal exam, mucous membranes moist Neck exam: Present: normal inspection. Absent: tenderness, meningismus, lymphadenopathy Respiratory exam: Present: normal lung sounds bilaterally. Absent: respiratory distress, wheezes, rales, rhonchi, stridor Cardiovascular Exam: Present: regular rate, normal rhythm, normal heart sounds. Absent: systolic murmur, diastolic murmur, rubs, gallop, clicks GI/Abdominal exam: Present: soft, tenderness (Left lower quadrant), normal bowel sounds. Absent: distended, guarding, rebound, rigid Extremities exam: Present: normal inspection, full ROM, normal capillary refill. Absent: tenderness, pedal edema, joint swelling, calf tenderness Back exam: Present: normal inspection Neurological exam: Present: alert, oriented X3, CN II-XII intact Psychiatric exam: Present: normal affect, normal mood Skin exam: Present: warm, dry, intact, normal color. Absent: rash Course Vital Signs 06/08/18 21:48 Temperature 99 F Pulse Rate 86 Respiratory 18 Rate Blood Pressure 158/85 O2 Sat by Pulse 98 Oximetry - Reevaluation(s) Reevaluation #1: 06/08/18 23:05 Medical record is reviewed and noncontributory Medical Decision Making - Medical Decision Making 47 male the ER for evaluation of bowel pain, abdominal pain CT scan of abdomen pelvis is positive for epiploic appendicitis. Patient given NSAIDs for discharge. - Radiology Data Radiology results: report reviewed (CT head and pelvis positive for epiploic appendigitis), image reviewed Disposition Clinical Impression: Epiploic appendagitis Disposition: HOME SELF-CARE Condition: Good Instructions (If sedation given, give patient instructions): Abdominal Pain (ED ) Is patient prescribed a controlled substance at d/c from ED?: No Referrals: Carmen Parson DO [Primary Care Provider] - 1-2 days
[2018-06-08] MEDS: PANTOPRAZOLE 40 MG/10 ML VIAL IVP STA (23:44)
[2018-06-08] MEDS: SODIUM CHLORIDE 0.9% 1,000 ML IV STA ×2 (23:44→23:51)
[2018-06-08] MEDS: ONDANSETRON 4 MG/2 ML VIAL IVP STA (23:44)
[2018-06-08] MEDS: MORPHINE SULFATE 4 MG/ML SYRINGE IV STA (23:45)
--- NOTE | 2018-06-09 00:09 | CT ---
EXAM: CT Abdomen and Pelvis With Intravenous Contrast CLINICAL HISTORY: ITS.REASON CT Reason: abdominal pain TECHNIQUE: Axial computed tomography images of the abdomen and pelvis with intravenous contrast. CTDI is 48.98 mGy and DLP is 2347 mGy-cm. This CT exam was performed using one or more of the following dose reduction techniques: automated exposure control, adjustment of the mA and/or kV according to patient size, and/or use of iterative reconstruction technique. COMPARISON: CT abdomen/pelvis on 11/16/2017 FINDINGS: Liver: Hepatic steatosis. No focal lesion. Spleen: Mild splenomegaly. No focal lesion. Gallbladder: Prior cholecystectomy. Pancreas: Mild atrophy of the pancreas. No acute inflammation. No mass. Adrenal glands: Normal. No mass. Kidneys: Small left renal cysts, measuring up to 1.7 cm. No hydronephrosis or stone. No mass. Bowel: Normal appendix. No bowel obstruction or inflammation. Urinary bladder: Normal. No wall thickening or mass. Reproductive organs: Normal. Muscles: No mass. Subcutaneous tissues: Small fat-containing umbilical hernia. Peritoneal space: Mild focal fat stranding in the left anterolateral mid abdomen may represent epiploic appendagitis. Lymph nodes: Similar nonspecific small mamadou hepatis lymph nodes and mesenteric lymph nodes may be reactive. Vessels: Normal. No aneurysm or dissection. Bones: Probable bone islands in the pelvic bones. No acute fracture. Degenerative changes of the spine. Lung bases: Normal. IMPRESSION: Mild focal fat stranding in the left anterolateral mid abdomen may represent epiploic appendagitis.
[2018-06-09 00:18] VITALS: BP 155/78; PULSE 87; TEMP 98.5
[2018-06-09 00:23] LABS: Basophils # (A) 0.1 k/uL (0-0.2); Basophils % (A) 1 %; Eosinophils # (A) 0.2 k/uL (0-0.7); Eosinophils % (A) 2 %; HCT 44.5 % (39.0-53.0); HGB 15.7 gm/dL (13.0-17.5); Lymphocytes # (A) 2.9 k/uL (1.0-4.8); Lymphocytes % (A) 28 %; MCH 31.3 pg (25.0-35.0); MCHC 35.2 g/dL (31.0-37.0); Mean Platelet Volume 6.5; Monocytes # (A) 0.6 k/uL (0-1.0); Monocytes % (A) 5 %; Neutrophils # (A) 6.5 k/uL (1.3-7.7); Neutrophils % (A) 62 %; Platelet Count 229 k/uL (150-450); RDW 13.2 % (11.5-15.5); WBC 10.5 k/uL (3.8-10.6)
[2018-06-09 00:29] LABS: Albumin 3.9 g/dL (3.5-5.0); Amylase 77 U/L (30-110); Anion Gap 9 mmol/L; Calcium 8.9 mg/dL (8.4-10.2); Carbon Dioxide 24 mmol/L (22-30); Chloride 106 mmol/L (98-107); Glucose 106 mg/dL (74-99); Lipase 114 U/L (23-300); Sodium 139 mmol/L (137-145); Total Bilirubin 1.3 mg/dL (0.2-1.3); Total Protein 7.1 g/dL (6.3-8.2)
[2018-06-09 00:34] LABS: ALT 51 U/L (21-72); AST 44 U/L (17-59); Alkaline Phosphatase 99 U/L (38-126); Blood Urea Nitrogen 12 mg/dL (9-20); Potassium 4.2 mmol/L (3.5-5.1)
[2018-06-09 00:53] LABS: Appearance,Urine Clear (Clear); Bilirubin,Urine Negative (Negative); Blood,Urine Negative (Negative); Color,Urine Yellow; Glucose,Urine (UA) Negative (Negative); Ketones,Urine Negative (Negative); Leukocyte Esterase,Urine Negative (Negative); Nitrite,Urine Negative (Negative); PH, Urine 5.5 (5.0-8.0); Protein,Urine Negative (Negative); Urobilinogen,Urine <2.0 mg/dL (<2.0)
== END 2018-06-09 00:32 | disposition home or self-care (01) ==
LOC: EC 21:21
DX: K63.89 Other specified diseases of intestine (principal); F17.200 Nicotine dependence, unspecified, uncomplicated; Z79.899 Other long term (current) drug therapy; Z88.5 Allergy status to narcotic agent; Z88.8 Allergy status to other drugs, medicaments and biological substances; Z90.49 Acquired absence of other specified parts of digestive tract
CPT/HCPCS: 36415; 80053; 82150; 83690; 85025; 81003; 87086; 74177; 99284; 96374; 96375 ×2; 96361; J2270; J2405; C9113; Q9967

== ENCOUNTER → 2018-06-22 | Outpatient (CLI) | payer OTHER ==
--- NOTE | 2018-06-22 18:09 | CONS ---
CONSULTATION DATE OF SERVICE: 06/22/2018 This patient is a 48-year-old gentleman who has been evaluated in the sleep center for possible obstructive sleep apnea-hypopnea syndrome. HISTORY OF PRESENT ILLNESS/SLEEP-WAKE EVALUATION: The patient does not have a regular sleep schedule. He usually goes to bed between 10 p.m. and 1 a.m. and sleeps for about 3 or 4 hours. He may stay in bed longer. He does have problems with falling asleep. He has a TV set in the bedroom. He sleeps in different positions, including back, side and stomach. He has very loud snoring and witnessed episodes by his of stopped breathing during sleep. He wakes up with episodes of gasping for air, grinding teeth, restless legs, up to 6 times from sleep with up to 2 episodes of nocturia. Patient has positive history of possible hypnagogic hallucinations. No sleep paralysis or cataplexy. In the morning the patient wakes up tired, falling asleep during the day, worrying about his sleep, has episodes of depression. [place] Sleepiness Scale is significantly increased at 15. The patient may take up to 3 naps during the day. Sometimes he may see vivid dreams during the naps. PAST MEDICAL HISTORY: Positive for back problems. PAST SURGICAL HISTORY: Cholecystectomy. SOCIAL HISTORY: Positive for chewing tobacco. Alcohol consumption rarely. FAMILY HISTORY: Hypertension, heart problems, stroke, arthritis, sleep apnea, snoring, cancer, acid reflux, liver problems, mental illness. REVIEW OF SYSTEMS: Multiple awakenings from sleep, tiredness and sleepiness during the day, back pain. PHYSICAL EXAMINATION: GENERAL: A pleasant gentleman without distress. VITAL SIGNS: BP 164/97, HR 76, RR 16, height 5 feet 10 inches, weight 360 pounds, body mass index 51.6, temperature 98.6, oxygen saturation at room air 96%. HEENT: PERRLA, EOMI. Evaluation of oropharynx showed tongue protrudes midline. Extremely low position of soft palate. Mallampati IV. NECK: Supple. No JVD. Thyroid is not palpable. Wide neck; 19-3/4 inches in circumference. LUNGS: Clear to percussion and to auscultation. Good air exchange. No wheezing or rhonchi. HEART: S1, S2 regular. No murmurs, gallops or rubs. ABDOMEN: Obese. EXTREMITIES: One plus ankle edema. FREQUENCY CHECKER: Awake, alert, and oriented X3. Cranial nerves 2 to 7 intact. There is no fasciculation or atrophy. noted. No focal deficits observed. IMPRESSION: 1. Loud snoring, witnessed episodes of stopped breathing during sleep, extremely low position of soft palate, wide neck, sleepiness; obstructive sleep apnea-hypopnea syndrome, possibly in severe range. 2. Obesity; body mass index 51.6. 3. Hypertension in the office today. 4. Back problems. 5. Status post cholecystectomy. PLAN: 1. Polysomnography for evaluation of patient's breathing during sleep. 2. CPAP/BiPAP titration if sleep study confirms obstructive sleep apnea-hypopnea syndrome. 3. Preferable position during sleep on the side. 4. No driving if patient feels any sleepiness. 5. I will see patient for follow up visit to explain results of testing and following plan. Thank you very much for referring this patient for consultation. Sincerely, Mitchell Ramirez MD, PhD, FAASM Diplomat of [employer] Professor Of Nursing of [facility] [place] MMODL / HAKEEMN: [id number] /
== END | disposition home or self-care (01) ==
LOC: SLEEP 15:25
PROVIDERS: ATTEND Internal Medicine
DX: R06.83 Snoring (principal); M27.8 Other specified diseases of jaws; R40.0 Somnolence; I10 Essential (primary) hypertension; E66.9 Obesity, unspecified; G47.63 Sleep related bruxism; G25.81 Restless legs syndrome; R35.1 Nocturia; F32.9 Major depressive disorder, single episode, unspecified; Z90.49 Acquired absence of other specified parts of digestive tract; Z87.891 Personal history of nicotine dependence; Z68.43 Body mass index [BMI] 50.0-59.9, adult; Z83.6 Family history of other diseases of the respiratory system
CPT/HCPCS: 99211

== ENCOUNTER → 2018-09-14 | Outpatient (CLI) | payer OTHER ==
--- NOTE | 2018-09-14 11:17 | USB ---
Reason for exam: clinical finding. History: Family history of breast cancer in paternal grandmother and breast cancer in paternal aunt. Physical Findings: Nurse Summary: pain x 3 months to touch (nurse geovanna). US Breast LT Left limited breast ultrasound including focal area of concern, retroareolar and axilla demonstrates no cystic or solid lesion seen. These results were verbally communicated with the patient and result sheet given to the patient on 09/14/18. ASSESSMENT: Negative, BI-RAD 1 RECOMMENDATION: Clinical management of the left breast. Manage patient on a clinical basis.
== END | disposition home or self-care (01) ==
LOC: RADUSWWP 09:33
PROVIDERS: ATTEND Family Medicine
DX: N64.4 Mastodynia (principal)

== ENCOUNTER → 2018-10-05 | Outpatient (CLI) | payer OTHER ==
--- NOTE | 2018-10-05 13:02 | SFUN ---
SLEEP CENTER FOLLOW UP NOTE DATE OF SERVICE: 10/05/2018 A 48-year-old gentleman who has been followed in the Sleep Center for treatment of obstructive sleep apnea-hypopnea syndrome. Recently patient had polysomnogram which showed moderate obstructive sleep apnea and CPAP titration. Subsequently, patient was started on treatment with CPAP. Today is his first visit after starting to use CPAP equipment. Originally, patient had episodes of anxiety while started to use machine but presently with some help with some of medications, he is able to use equipment during the night. I checked his CPAP unit, range of the pressure 5-12, average pressure is 10.3 cm of water. The patient is using it every night and 24/30 nights more than 4 hours. Average usage is 6.1 hours. Leak is borderline 29 L/minute. Apnea-hypopnea index 2.3, which is absolutely normal. [place] Sleepiness Scale scale still increased to 15. MEDICATIONS: [place], baclofen, Hydroxyzine, . PHYSICAL EXAM: Patient in no distress, BP 133/74, HR 60, RR 16, weight 340.6, temperature 97.9, oxygen saturation at room air 97%. OROPHARYNX: Low position of soft palate, Mallampati III. ABDOMEN: Obese. Neck Supple, no JVD. Thyroid is not palpable. LUNGS Clear to percussion and to auscultation. Good air exchange. No wheezing or rhonchi. HEART S1, S2 regular. No murmurs, gallops, or rubs. EXTREMITIES No clubbing or cyanosis. WORKFORCE SPECIALIST Awake, alert, and oriented X3. Cranial nerves 2 to 7 intact. There is no fasciculation or atrophy. noted. No focal deficits observed. IMPRESSION: 1. Moderate obstructive sleep apnea-hypopnea syndrome; apnea-hypopnea index 15.5 with oxygen desaturation to 84% on control with CPAP with average pressure of 10.3 cm of water. Patient demonstrated great compliance with treatment, benefitting from treatment. 2. Obesity. 3. Back problem. 4. Episodes of hypertension in the office in the past. Normal blood pressure today. 5. Status post cholecystectomy. PLAN: 1. We fitted patient with Dream Wear full-face mask, medium size, and patient likes it. 2. He will continue to use CPAP equipment every night for the whole night. 3. Prescription for all necessary CPAP supplies including new Dream Wear mask. 4. Losing weight. 5. No driving if feeling sleepiness. Thank you very much for allowing me to participate in the management of your patient. Sincerely, Mitchell Ramirez MD, PhD, FAASM Diplomat of [place] [employer] [place] [employer] Student Recruiter of [facility] [place] MMODL / ROSETTE: [id number] /
== END ==
LOC: SLEEP 11:26
PROVIDERS: ATTEND Internal Medicine
DX: G47.33 Obstructive sleep apnea (adult) (pediatric) (principal); E66.9 Obesity, unspecified; I10 Essential (primary) hypertension; M54.89 Other dorsalgia; Z90.49 Acquired absence of other specified parts of digestive tract; Z99.89 Dependence on other enabling machines and devices; Z79.891 Long term (current) use of opiate analgesic; Z79.899 Other long term (current) drug therapy

== ENCOUNTER 2019-04-04 18:04 | Emergency (ER) | payer OTHER ==
[2019-04-04 18:25] VITALS: RESP 20
[2019-04-04] MEDS ORDERED: HYDROmorphone 1 MG/ML 1 ML SYRINGE IVP STA ×2 (18:33→19:31)
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
--- NOTE | 2019-04-04 19:12 | XR ---
EXAMINATION TYPE: XR shoulder complete LT DATE OF EXAM: 04/04/2019 COMPARISON: NONE HISTORY: Pain TECHNIQUE: 3 views FINDINGS: Glenohumeral joint is anatomic. There is some deformity of the inferior glenoid labrum. AC joint is intact. IMPRESSION: Possible chip fracture of the inferior glenoid labrum. No dislocation.
[2019-04-04] MEDS ORDERED: KETOROLAC 30 MG/ML 1 ML VIAL IVP STA (19:31)
[2019-04-04] MEDS ORDERED: DIPH,PERTUS(ACELL)TETVAC-LF 0.5 ML VIAL IM ONE (19:37)
[2019-04-04 20:24] VITALS: BP 153/93; PULSE 92; TEMP 98
== END 2019-04-04 20:24 | disposition home or self-care (01) ==
LOC: EC 18:04
DX: S02.2XXA Fracture of nasal bones, initial encounter for closed fracture (principal); S43.005A Unspecified dislocation of left shoulder joint, initial encounter; S42.142A Displaced fracture of glenoid cavity of scapula, left shoulder, initial encounter for closed fracture; S00.12XA Contusion of left eyelid and periocular area, initial encounter; M54.2 Cervicalgia; G89.29 Other chronic pain; F17.200 Nicotine dependence, unspecified, uncomplicated; Z88.5 Allergy status to narcotic agent; Z79.899 Other long term (current) drug therapy; Z23 Encounter for immunization; Y04.0XXA Assault by unarmed brawl or fight, initial encounter; Y04.2XXA Assault by strike against or bumped into by another person, initial encounter; Y93.89 Activity, other specified; Y92.89 Other specified places as the place of occurrence of the external cause
CPT/HCPCS: 73030; 70486; 70450; 90715; 99284; 96374; 96375; 96376; 90471; J1885; J1170

== ENCOUNTER → 2020-08-25 | Outpatient (CLI) | payer OTHER ==
[2020-08-25 12:54] LABS: HCT 45.3 % (39.0-53.0); HGB 16.1 gm/dL (13.0-17.5); MCH 31.5 pg (25.0-35.0); MCHC 35.5 g/dL (31.0-37.0); MCV 88.9 fL (80.0-100.0); Mean Platelet Volume 7.1; Platelet Count 194 k/uL (150-450); RDW 12.9 % (11.5-15.5); WBC 6.4 k/uL (3.8-10.6)
--- NOTE | 2020-08-25 12:57 | US ---
EXAMINATION TYPE: US venous doppler duplex LE LT DATE OF EXAM: 08/25/2020 12:23 PM COMPARISON: NONE CLINICAL HISTORY: M79.662 Pain left leg, R22.42 Swelling Left leg. Patient stated has left foot pain and swelling x 4 days, with history of left plantar warts removed one month ago; lumbar spine pain in jection one month ago; HT 5'10, WT 357lb. SIDE PERFORMED: Left TECHNIQUE: The lower extremity deep venous system is examined utilizing real time linear array sonog suzy with graded compression, doppler sonography and color-flow sonography. VESSELS IMAGED: Common Femoral Vein Deep Femoral Vein Greater Saphenous Vein * Femoral Vein Popliteal Vein Small Saphenous Vein * Proximal Calf Veins (* superficial vessels) Left Leg: Negative for DVT. Couple of prominent left groin lymph nodes are seen with larger node = 2 .5 x 2.0 x 1.3cm. Edema channels are noted anterior left foot. Grayscale, color doppler, spectral doppler imaging performed of the deep veins of the left lower extr emity. There is normal flow, compressibility, vascular waveforms. IMPRESSION: No ultrasound evidence for acute DVT in the left lower extremity. Moderate subcutaneous edema noted towards end of study in the distal left lower extremity. Suspect reactive left groin leela opathy. Short-term ultrasound follow-up should be considered.
[2020-08-25 13:07] LABS: ALT 41 U/L (4-49); AST 37 U/L (17-59); African American GFR (CKD) >90 (>60 ml/min/1.73 sqM); Albumin 3.7 g/dL (3.5-5.0); Alkaline Phosphatase 93 U/L (38-126); Anion Gap 7 mmol/L; Blood Urea Nitrogen 11 mg/dL (9-20); Calcium 8.9 mg/dL (8.4-10.2); Carbon Dioxide 21 mmol/L (22-30); Chloride 113 mmol/L (98-107); Cholesterol 216 mg/dL (<200); Glucose 93 mg/dL (74-99); HDL Cholesterol 42 mg/dL (40-60); LDL Cholesterol,Calculated 128 mg/dL (0-99); Non-African American GFR(CKD) >90 (>60 ml/min/1.73 sqM); Potassium 3.9 mmol/L (3.5-5.1); Sodium 141 mmol/L (137-145); Total Bilirubin 0.9 mg/dL (0.2-1.3); Total Protein 6.8 g/dL (6.3-8.2); Triglycerides 231 mg/dL (<150); Uric Acid 5.8 mg/dL (3.5-8.5)
[2020-08-25 21:57] LABS: Hemoglobin A1C 4.5 % (4.0-6.0)
== END | disposition home or self-care (01) ==
LOC: RADUSWWP 11:41
PROVIDERS: ATTEND Family Medicine
DX: M79.662 Pain in left lower leg (principal); R22.42 Localized swelling, mass and lump, left lower limb
CPT/HCPCS: 36415; 80053; 80061; 83036; 84443; 84550; 85027

== ENCOUNTER 2020-10-05 10:04 | Emergency (ER) | payer OTHER ==
[2020-10-05 10:07] VITALS: RESP 18; TEMP 98
[2020-10-05] MEDS ORDERED: ORPHENADRINE 30 MG/ML 2 ML VIAL IM STA (10:26)
[2020-10-05] MEDS ORDERED: KETOROLAC 15 MG/ML 1 ML VIAL IM STA (10:26)
[2020-10-05] MEDS ORDERED: HYDROmorphone 1 MG/ML 1 ML SYRINGE IM STA ×2 (10:26→12:02)
--- NOTE | 2020-10-05 10:30 | ED ---
General Adult HPI - General Chief complaint: Back Pain/Injury Stated complaint: Back Pain Time Seen by Provider: 10/05/20 10:12 Source: patient, family, RN notes reviewed Mode of arrival: wheelchair Limitations: no limitations - History of Present Illness Initial comments: Patient is a pleasant 50-year-old male presenting to the emergency department with concerns for low back pain. Patient states she does have history of lower back pounds previously with previous injections and nerve ablation. Patient was sitting up Tuesday with increase of his chronic back pain. No incontinence or retention of bowel or bladder. No leg weakness. Pain increases with movement. Patient is on chronic Percocet however this is not helping with his pain at this time. - Related Data Home Medications Medication Instructions Recorded Confirmed oxyCODONE HCL/ACETAMINOPHEN 1 tab PO Q6HR PRN 09/26/16 06/08/18 [Percocet 10-325 mg] Baclofen [Lioresal] 20 mg PO BID 11/16/17 06/08/18 Previous Rx's Medication Instructions Recorded Ibuprofen [Motrin] 600 mg PO Q8HR PRN #30 tab 04/04/19 Cyclobenzaprine [Flexeril] 10 mg PO TID PRN #12 tablet 10/05/20 predniSONE [Deltasone] 20 mg PO BID #10 tab 10/05/20 Allergies Allergy/AdvReac Type Severity Reaction Status Date / Time meperidine [From Demerol] Allergy Anaphylaxis Verified 10/05/20 10:07 propoxyphene Allergy Anaphylaxis Verified 10/05/20 10:07 Review of Systems ROS Statement: Those systems with pertinent positive or pertinent negative responses have been documented in the HPI. ROS Other: All systems not noted in ROS Statement are negative. Constitutional: Denies: fever Eyes: Denies: eye pain ENT: Denies: ear pain Respiratory: Denies: cough Cardiovascular: Denies: chest pain Endocrine: Denies: fatigue Gastrointestinal: Denies: abdominal pain Genitourinary: Denies: dysuria Musculoskeletal: Reports: as per HPI, back pain Skin: Denies: rash Neurological: Denies: weakness, paresthesias Past Medical History Past Medical History: No Reported History Additional Past Medical History / Comment(s): Chronic back and neck pain. Hiatal hernia History of Any Multi-Drug Resistant Organisms: None Reported Past Surgical History: Cholecystectomy, Orthopedic Surgery Additional Past Surgical History / Comment(s): hand sx. EGD, PAIN PROCEDURES Past Anesthesia/Blood Transfusion Reactions: No Reported Reaction Past Psychological History: Depression Smoking Status: Never smoker Past Alcohol Use History: Rare Past Drug Use History: None Reported - Past Family History Father Family Medical History: No Reported History General Exam Limitations: no limitations General appearance: alert, in no apparent distress Head exam: Present: normocephalic Eye exam: Present: normal appearance Neck exam: Present: normal inspection Respiratory exam: Present: normal lung sounds bilaterally Cardiovascular Exam: Present: regular rate, normal rhythm Expanded Peripheral pulses: 2+: Posterior Tibialis (R), Posterior Tibialis (L) GI/Abdominal exam: Present: soft. Absent: tenderness Extremities exam: Present: normal inspection Back exam: Present: tenderness (Mild tenderness lower lumbar spine) Neurological exam: Present: alert. Absent: motor sensory deficit Psychiatric exam: Present: normal affect, normal mood Skin exam: Present: normal color Course Vital Signs 10/05/20 10:05 Temperature 98.0 F Pulse Rate 63 Respiratory 18 Rate Blood Pressure 142/77 O2 Sat by Pulse 97 Oximetry Disposition Clinical Impression: Low back pain Disposition: HOME SELF-CARE Condition: Stable Instructions (If sedation given, give patient instructions): Acute Low Back Pain (ED) Additional Instructions: Please do follow-up with your primary care physician in the beginning of the week for recheck. MRI as planned for Tuesday. Prescription has been sent to your pharmacy. Return for weakness, fever, loss of control of bowel or bladder, worsening symptoms or other concerns. Prescriptions: predniSONE [Deltasone] 20 mg PO BID #10 tab Cyclobenzaprine [Flexeril] 10 mg PO TID PRN #12 tablet PRN Reason: Pain Is patient prescribed a controlled substance at d/c from ED?: No Referrals: Norbert Parson MD [Primary Care Provider] - 1-2 days Hasmukh Espitia DO [Doctor of Osteopathic Medicine] - 1-2 days Time of Disposition: 10:29
[2020-10-05 12:31] VITALS: BP 138/84; PULSE 90
== END 2020-10-05 12:30 | disposition home or self-care (01) ==
LOC: EC 10:04
DX: M54.5 Low back pain (principal); Z88.5 Allergy status to narcotic agent
CPT/HCPCS: 99283; 96372 ×2; J2360; J1170; J1885

== ENCOUNTER → 2021-02-03 | Outpatient (CLI) | payer OTHER | END | disposition home or self-care (01) | LOC: RADNMMAIN 08:14 | PROVIDERS: ATTEND Family Medicine | DX: Z53.9 Procedure and treatment not carried out, unspecified reason (principal) ==

== ENCOUNTER → 2021-02-11 | Outpatient (CLI) | payer OTHER | END | disposition home or self-care (01) | LOC: RADCTMAIN 09:31 | PROVIDERS: ATTEND Psychiatry & Neurology Neurology | DX: Z53.9 Procedure and treatment not carried out, unspecified reason (principal) ==

== ENCOUNTER → 2021-02-11 | Outpatient (CLI) | payer OTHER ==
--- NOTE | 2021-02-11 11:26 | CT ---
EXAMINATION TYPE: CT brain ortizine wo con DATE OF EXAM: 02/11/2021 COMPARISON: 04/04/2019 HISTORY: Cervicalgia and general stenosis CT DLP: 2156.2 mGycm, Automated exposure control for dose reduction was used. CONTRAST: None CT of the brain is performed utilizing 3 mm thick sections through the posterior fossa and 3 mm thick sections through the remaining calvarium. Study is performed within 24 hours of arrival to the hospital. No abnormal hyperdensity is present to suggest an acute intracranial hemorrhage. No mass lesion is evident. No acute infarcts are evident. Ventricles and sulci are appropriate for the patient age. There is a retention cyst within the left maxillary sinus. Remaining paranasal sinuses and mastoid ai r cells are clear. IMPRESSIONS: 1. Normal CT brain. CT cervical spine. COMPARISON: None CT of the cervical spine is performed in the axial plane at 2 mm thick sections. Reconstructed image s in the coronal, and sagittal plane are reviewed on the computer. No acute fractures are evident. Vertebral body alignment is normal. There is loss of disc height at C3-4 through C6-7. Vertebral body heights are preserved. Uncovertebral joint hypertrophy and endplate spurring is present C6-7 with severe bilateral foraminal stenosis and moderate anterior thecal sac compression. AP spinal canal stenosis posterior to the spu rring is noted measuring 0.8 cm. IMPRESSIONS: 1. No acute osseous abnormality. 2. Posterior endplate spurring and loss of disc height C6-7. This is contributing to AP spinal canal stenosis and severe foraminal narrowing.
== END | disposition home or self-care (01) ==
LOC: RADCTMAIN 09:18
PROVIDERS: ATTEND Psychiatry & Neurology Neurology
DX: G43.909 Migraine, unspecified, not intractable, without status migrainosus (principal)
CPT/HCPCS: 70450; 72125

== ENCOUNTER 2021-07-08 21:11 | Emergency (ER) | payer OTHER ==
[2021-07-08 21:24] VITALS: RESP 18; TEMP 97.9
[2021-07-08] MEDS ORDERED: ASPIRIN 81 MG PO STA (23:56)
--- NOTE | 2021-07-09 00:01 | ED ---
Extremity Problem HPI - General Chief complaint: Extremity Problem,Nontraumatic Stated complaint: Left foot swelling, Difficulty Breathing Time Seen by Provider: 07/08/21 23:51 Source: patient, RN notes reviewed Mode of arrival: ambulatory Limitations: no limitations - History of Present Illness Initial comments: This is a 51-year-old male with a history of hyperlipidemia, chronic back pain and obesity. He presents to the emergency department complaining of edema in his left ankle area which has been present for one week. Patient also co mplaining of exertional dyspnea. Denies any chest pain. Denies any productive cough. Denies fever. Patient has no history of cardiovascular disease. No headache, no fever or chills, no changes in vision or hearing, no sore throat or difficulty with speech, no neck pain, no abdominal pain, no nausea or vomiting, no changes in urination or bowel movements, no numbness or tingling,, no skin rashes or lesions. History of cigarette smoking and occasional alcohol use. No illicit drug abuse MD Complaint: extremity pain, extremity swelling - Related Data Home Medications Medication Instructions Recorded Confirmed oxyCODONE HCL/ACETAMINOPHEN 1 tab PO Q6HR PRN 09/26/16 06/08/18 [Percocet 10-325 mg] Baclofen [Lioresal] 20 mg PO BID 11/16/17 06/08/18 Previous Rx's Medication Instructions Recorded Ibuprofen [Motrin] 600 mg PO Q8HR PRN #30 tab 04/04/19 Cyclobenzaprine [Flexeril] 10 mg PO TID PRN #12 tablet 10/05/20 predniSONE [Deltasone] 20 mg PO BID #10 tab 10/05/20 Allergies Allergy/AdvReac Type Severity Reaction Status Date / Time meperidine [From Demerol] Allergy Anaphylaxis Verified 07/08/21 21:24 propoxyphene Allergy Anaphylaxis Verified 07/08/21 21:24 Review of Systems ROS Statement: Those systems with pertinent positive or pertinent negative responses have been documented in the HPI. ROS Other: All systems not noted in ROS Statement are negative. Past Medical History Past Medical History: No Reported History Additional Past Medical History / Comment(s): Chronic back and neck pain. Hiatal hernia History of Any Multi-Drug Resistant Organisms: None Reported Past Surgical History: Cholecystectomy, Orthopedic Surgery Additional Past Surgical History / Comment(s): hand sx. EGD, PAIN PROCEDURES Past Anesthesia/Blood Transfusion Reactions: No Reported Reaction Past Psychological History: Depression Smoking Status: Light tobacco smoker Past Alcohol Use History: Rare Past Drug Use History: Marijuana - Past Family History Father Family Medical History: No Reported History General Exam Limitations: no limitations General appearance: alert, in no apparent distress, obese Head exam: Present: atraumatic, normocephalic, normal inspection Eye exam: Present: normal appearance, PERRL, EOMI. Absent: scleral icterus, conjunctival injection, periorbital swelling ENT exam: Present: normal exam, mucous membranes moist Neck exam: Present: normal inspection. Absent: tenderness, meningismus, lymphadenopathy Respiratory exam: Present: normal lung sounds bilaterally. Absent: respiratory distress, wheezes, rales, rhonchi, stridor Cardiovascular Exam: Present: regular rate, normal rhythm, normal heart sounds. Absent: systolic murmur, diastolic murmur, rubs, gallop, clicks GI/Abdominal exam: Present: soft, normal bowel sounds. Absent: distended, tenderness, guarding, rebound, rigid Extremities exam: Present: normal inspection, full ROM, normal capillary refill, pedal edema (Bilateral, extends onto the area just above the medial malleolus bilaterally. Pedal pulses intact. No erythema. Homans sign is equivocal on the left). Absent: tenderness, joint swelling, calf tenderness Back exam: Present: normal inspection Neurological exam: Present: alert, oriented X3, CN II-XII intact Psychiatric exam: Present: normal affect, normal mood Skin exam: Present: warm, dry, intact, normal color. Absent: rash Course Vital Signs 07/08/21 07/09/21 07/09/21 21:22 01:22 02:44 Temperature 97.9 F Pulse Rate 81 68 89 Respiratory 18 18 18 Rate Blood Pressure 177/102 143/89 139/80 O2 Sat by Pulse 96 95 95 Oximetry - Reevaluation(s) Reevaluation #1: 07/09/21 02:47 Medical record is reviewed Symptoms are improved here in the emergency department Patient is informed of results and questions answered Patient in no distress Medical Decision Making - Medical Decision Making Patient presents with bilateral lower extremity edema, mostly ankle and pedal. No evidence of infectious process. Also has exertional dyspnea. Patient's workup here essentially negative for any acute pathology. Suspect the patient's peripheral edema is due to body habitus. We'll camp counselor the patient on elevation, sodium limitation, and follow-up. The case was discussed in detail with ED attending physician. Presentation, findings, treatment plan discussed in detail. Patient was told to return to the ER for any signs or symptoms worsen. Told to return immediately if any other problems arise. All questions answered. Treatment plan discussed. Patient in agreement Every effort has been made to ensure accuracy of this dictation. However, due to the limitations of electronic medical records and dictation devices, errors in charting still occur. Note that I did advise a COVID-19 test for this patient. However patient didn't want a swab his nose and refused the test. - Lab Data Result diagrams: 07/09/21 01:11 07/09/21 01:11 Lab Results 07/09/21 07/09/21 07/09/21 Range/Units 01:11 01:11 01:11 WBC 9.2 (3.8-10.6) k/uL RBC 5.32 (4.30-5.90) m/uL Hgb 16.3 (13.0-17.5) gm/dL Hct 47.5 (39.0-53.0) % MCV 89.2 (80.0-100.0) fL MCH 30.6 (25.0-35.0) pg MCHC 34.4 (31.0-37.0) g/dL RDW 12.4 (11.5-15.5) % Plt Count 206 (150-450) k/uL MPV 8.0 Neutrophils % 62 % Lymphocytes % 28 % Monocytes % 5 % Eosinophils % 2 % Basophils % 1 % Neutrophils # 5.7 (1.3-7.7) k/uL Lymphocytes # 2.6 (1.0-4.8) k/uL Monocytes # 0.5 (0-1.0) k/uL Eosinophils # 0.2 (0-0.7) k/uL Basophils # 0.1 (0-0.2) k/uL PT 10.8 (9.0-12.0) sec INR 1.0 (<1.2) APTT 23.7 (22.0-30.0) sec D-Dimer 0.26 (<0.60) mg/L FEU Sodium 137 (137-145) mmol/L Potassium 4.0 (3.5-5.1) mmol/L Chloride 103 (98-107) mmol/L Carbon Dioxide 24 (22-30) mmol/L Anion Gap 10 mmol/L BUN 9 (9-20) mg/dL Creatinine 0.80 (0.66-1.25) mg/dL Est GFR (CKD-EPI)AfAm >90 (>60 ml/min/1.73 sqM) Est GFR (CKD-EPI)NonAf >90 (>60 ml/min/1.73 sqM) Glucose 101 H (74-99) mg/dL Calcium 8.9 (8.4-10.2) mg/dL Magnesium 1.7 (1.6-2.3) mg/dL Total Bilirubin 1.2 (0.2-1.3) mg/dL AST 38 (17-59) U/L ALT 42 (4-49) U/L Alkaline Phosphatase 95 (38-126) U/L Troponin I (0.000-0.034) ng/mL NT-Pro-B Natriuret Pep pg/mL Total Protein 7.1 (6.3-8.2) g/dL Albumin 3.9 (3.5-5.0) g/dL 07/09/21 07/09/21 Range/Units 01:11 01:11 WBC (3.8-10.6) k/uL RBC (4.30-5.90) m/uL Hgb (13.0-17.5) gm/dL Hct (39.0-53.0) % MCV (80.0-100.0) fL MCH (25.0-35.0) pg MCHC (31.0-37.0) g/dL RDW (11.5-15.5) % Plt Count (150-450) k/uL MPV Neutrophils % % Lymphocytes % % Monocytes % % Eosinophils % % Basophils % % Neutrophils # (1.3-7.7) k/uL Lymphocytes # (1.0-4.8) k/uL Monocytes # (0-1.0) k/uL Eosinophils # (0-0.7) k/uL Basophils # (0-0.2) k/uL PT (9.0-12.0) sec INR (<1.2) APTT (22.0-30.0) sec D-Dimer (<0.60) mg/L FEU Sodium (137-145) mmol/L Potassium (3.5-5.1) mmol/L Chloride (98-107) mmol/L Carbon Dioxide (22-30) mmol/L Anion Gap mmol/L BUN (9-20) mg/dL Creatinine (0.66-1.25) mg/dL Est GFR (CKD-EPI)AfAm (>60 ml/min/1.73 sqM) Est GFR (CKD-EPI)NonAf (>60 ml/min/1.73 sqM) Glucose (74-99) mg/dL Calcium (8.4-10.2) mg/dL Magnesium (1.6-2.3) mg/dL Total Bilirubin (0.2-1.3) mg/dL AST (17-59) U/L ALT (4-49) U/L Alkaline Phosphatase (38-126) U/L Troponin I <0.012 (0.000-0.034) ng/mL NT-Pro-B Natriuret Pep 23 pg/mL Total Protein (6.3-8.2) g/dL Albumin (3.5-5.0) g/dL - EKG Data -: EKG Interpreted by Me EKG Comments: EKG done at 12:49 AM and read by the ED attending physician reveals sinus rhythm with a rate of 64. Moderate voltage criteria for LVH. No acute ST or T-wave changes. Normal intervals. When compared to previous study there is no significant change. Disposition Clinical Impression: Peripheral edema, Obesity, Elevated blood pressure reading Disposition: HOME SELF-CARE Condition: Stable Instructions (If sedation given, give patient instructions): DASH Eating Plan (ED), Hypertension (ED) Additional Instructions: Myself any diarrhea. Elevate if it is much as possible. Call your regular doctor in the morning to schedule follow-up appointment. Follow-up with your regular physician as directed. Return to the ER immediately if any symptoms worsen, new symptoms arise, or any other problems develop. Your blood pressure was also slightly elevated here. Is patient prescribed a controlled substance at d/c from ED?: No Referrals: Norbert Parson MD [Primary Care Provider] - 1-2 days Time of Disposition: 02:31
--- NOTE | 2021-07-09 00:31 | XR ---
EXAMINATION TYPE: XR chest 2V DATE OF EXAM: 07/09/2021 COMPARISON: 04/16/2017 HISTORY: Chest pain TECHNIQUE: 2 views FINDINGS: Heart and mediastinum are normal. Lungs are clear. Diaphragm is normal. Bony thorax appears normal IMPRESSION: Normal chest. No change
--- NOTE | 2021-07-09 00:53 | US ---
EXAMINATION TYPE: US venous doppler duplex LE DATE OF EXAM: 07/09/2021 12:46 AM COMPARISON: 08/25/20 LLEV CLINICAL HISTORY: Bilateral leg edema. LT Foot swelling SIDE PERFORMED: Bilateral TECHNIQUE: The lower extremity deep venous system is examined utilizing real time linear array sonog suzy with graded compression, doppler sonography and color-flow sonography. VESSELS IMAGED: Common Femoral Vein Deep Femoral Vein Greater Saphenous Vein * Femoral Vein Popliteal Vein Small Saphenous Vein * Proximal Calf Veins (* superficial vessels) Right Leg: Appears negative for DVT Left Leg: Appears negative for DVT Limited exam due to patient body habitus. IMPRESSION: No sign of deep vein thrombosis in both legs.
[2021-07-09 01:45] LABS: Basophils # (A) 0.1 k/uL (0-0.2); Basophils % (A) 1 %; Eosinophils # (A) 0.2 k/uL (0-0.7); Eosinophils % (A) 2 %; HCT 47.5 % (39.0-53.0); HGB 16.3 gm/dL (13.0-17.5); Lymphocytes # (A) 2.6 k/uL (1.0-4.8); Lymphocytes % (A) 28 %; MCH 30.6 pg (25.0-35.0); MCHC 34.4 g/dL (31.0-37.0); MCV 89.2 fL (80.0-100.0); Monocytes # (A) 0.5 k/uL (0-1.0); Monocytes % (A) 5 %; Neutrophils # (A) 5.7 k/uL (1.3-7.7); Neutrophils % (A) 62 %; Platelet Count 206 k/uL (150-450); RBC 5.32 m/uL (4.30-5.90); RDW 12.4 % (11.5-15.5); WBC 9.2 k/uL (3.8-10.6)
[2021-07-09 01:55] LABS: ALT 42 U/L (4-49); AST 38 U/L (17-59); African American GFR (CKD) >90 (>60 ml/min/1.73 sqM); Albumin 3.9 g/dL (3.5-5.0); Alkaline Phosphatase 95 U/L (38-126); Anion Gap 10 mmol/L; Blood Urea Nitrogen 9 mg/dL (9-20); Calcium 8.9 mg/dL (8.4-10.2); Carbon Dioxide 24 mmol/L (22-30); Chloride 103 mmol/L (98-107); Glucose 101 mg/dL (74-99); Magnesium 1.7 mg/dL (1.6-2.3); Non-African American GFR(CKD) >90 (>60 ml/min/1.73 sqM); Sodium 137 mmol/L (137-145); Total Bilirubin 1.2 mg/dL (0.2-1.3); Total Protein 7.1 g/dL (6.3-8.2)
[2021-07-09 02:06] LABS: Partial Thromboplastin Time 23.7 sec (22.0-30.0); Prothrombin Time 10.8 sec (9.0-12.0)
[2021-07-09 02:46] VITALS: BP 139/80; PULSE 89
== END 2021-07-09 02:48 | disposition home or self-care (01) ==
LOC: EC 21:11
DX: R03.0 Elevated blood-pressure reading, without diagnosis of hypertension (principal); E66.9 Obesity, unspecified; Z88.5 Allergy status to narcotic agent
CPT/HCPCS: 36415; 71046; 80053; 83735; 83880; 84484; 85025; 85379; 85610; 85730; 93005; 93970; 99284

== ENCOUNTER → 2023-02-22 | Outpatient (CLI) | payer OTHER ==
[2023-02-22 10:46] LABS: HCT 43.8 % (39.6-50.0); HGB 15.7 g/dL (13.0-17.0); MCH 30.7 pg (27.0-32.0); MCHC 35.8 g/dL (32.0-37.0); MCV 85.7 FL (80.0-97.0); Mean Platelet Volume 10.9 FL (9.5-12.2); NRBC Per 100 WBC 0 X 10*3/uL (0.00-0.01); Platelet Count 239 X 10*3/uL (140-440); RBC 5.11 X 10*6/uL (4.40-5.60); RDW 13.1 % (11.5-14.5); WBC 9.83 X 10*3/uL (4.50-10.00)
[2023-02-22 11:15] LABS: ALT 29 U/L (10-49); AST 19 U/L (14-35); Albumin 4.2 g/dL (3.8-4.9); Albumin/Globulin Ratio 1.45 Ratio (1.60-3.17); Alkaline Phosphatase 117 U/L (41-126); Blood Urea Nitrogen 12.6 mg/dL (9.0-27.0); Calcium 9.3 mg/dL (8.7-10.3); Carbon Dioxide 25.6 mmol/L (21.6-31.8); Chloride 102 mmol/L (96-109); Chol/HDL Ratio 3.47 Ratio; Globulin 2.9 g/dL (1.6-3.3); Glucose 129 mg/dL (70-110); LDL Cholesterol,Calculated 74.5 mg/dL (0.0-131.0); Potassium 4.1 mmol/L (3.5-5.5); Sodium 141 mmol/L (135-145); Total Protein 7.1 g/dL (6.2-8.2)
== END | disposition home or self-care (01) ==
LOC: LABWHC1 07:08
PROVIDERS: ATTEND Family Medicine
DX: E66.01 Morbid (severe) obesity due to excess calories (principal); F33.1 Major depressive disorder, recurrent, moderate
CPT/HCPCS: 36415; 80053; 80061; 83036; 84443; 85027

== ENCOUNTER → 2024-07-05 | Outpatient (CLI) | payer BC ==
--- NOTE | 2024-07-05 16:36 | CT ---
EXAMINATION TYPE: CT abdomen pelvis w con CT DLP: 3203 mGycm, Automated exposure control for dose reduction was used. DATE OF EXAM: 07/05/2024 4:02 PM COMPARISON: CT abdomen pelvis 11/16/2017 CLINICAL INDICATION:Male, 54 years old with history of K43 VENTRAL HERNIA; Ventral hernia TECHNIQUE: Standard CT of the abdomen and pelvis following the administration of 100 cc of Isovue 3 00 IV contrast material and oral contrast. Coronal and sagittal reformats were performed. FINDINGS: LOWER CHEST: Unremarkable ABDOMEN LIVER: Unremarkable GALLBLADDER AND BILE DUCTS: The gallbladder is surgically absent. No biliary ductal dilatation. PANCREAS: Unremarkable. SPLEEN: Unremarkable. ADRENAL GLANDS: Unremarkable. KIDNEYS AND URETERS: No evidence of hydronephrosis or renal calculus. The kidneys enhance symmetrical ly. Right renal lower pole cortical 2.1 cm cyst. Few left renal cortical cysts with largest in the in ferior pole measuring up to 2.6 cm. PELVIS BLADDER: Underdistended but grossly unremarkable. REPRODUCTIVE: Unremarkable. ABDOMEN & PELVIS STOMACH AND BOWEL: Stomach and duodenum are unremarkable. Redundant sigmoid colon. No focal bowel wal l thickening or surrounding inflammatory changes. The appendix is within normal limits. Enteric contr ast reaches the distal small bowel. No evidence of bowel obstruction. PERITONEUM: No evidence of pneumoperitoneum or free fluid. VASCULATURE: No evidence of aortic aneurysm. MUSCULOSKELETAL: No acute osseous abnormalities. DISH of the lower thoracic spine. LYMPH NODES: No evidence for lymphadenopathy. SOFT TISSUE/ABDOMINAL WALL: Small fat filled umbilical hernia with diastases rectus. No inguinal charmaine ia. IMPRESSION: 1. No acute abdominal/pelvic process. 2. Small fat filled umbilical hernia with diastases rectus. [facility], , 07/05/2024 4:34 PM
== END | disposition home or self-care (01) ==
LOC: RADCTMAIN 13:48
PROVIDERS: ATTEND Surgery
DX: K42.9 Umbilical hernia without obstruction or gangrene (principal); K43.9 Ventral hernia without obstruction or gangrene
CPT/HCPCS: 74177; Q9967

== ENCOUNTER → 2024-07-31 | Outpatient (CLI) | payer BC ==
[2024-07-31 14:46] LABS: HCT 41.6 % (39.6-50.0); HGB 14.2 g/dL (13.0-17.0); MCHC 34.1 g/dL (32.0-37.0); MCV 87.9 FL (80.0-97.0); Mean Platelet Volume 11.2 FL (9.5-12.2); NRBC Per 100 WBC 0 X 10*3/uL (0.00-0.01); Platelet Count 216 X 10*3/uL (140-440); RBC 4.73 X 10*6/uL (4.40-5.60); RDW 12.5 % (11.5-14.5); WBC 10.75 X 10*3/uL (4.50-10.00)
[2024-07-31 15:03] LABS: BUN/Creat Ratio 14.86 Ratio (12.00-20.00); Blood Urea Nitrogen 20.8 mg/dL (9.0-27.0); Calcium 9.1 mg/dL (8.7-10.3); Carbon Dioxide 26.3 mmol/L (21.6-31.8); Chloride 100 mmol/L (96-109); Glucose 108 mg/dL (70-110); Potassium 4.2 mmol/L (3.5-5.5); Sodium 141 mmol/L (135-145)
== END | disposition home or self-care (01) ==
LOC: LABPAT 08:22
PROVIDERS: ATTEND Surgery
DX: Z01.818 Encounter for other preprocedural examination (principal); Z53.9 Procedure and treatment not carried out, unspecified reason
CPT/HCPCS: 36415; 80048; 85027; 93005

== ENCOUNTER 2024-08-01 05:35 | Day surgery (SDC) | payer BC ==
[2024-08-01] MEDS ORDERED: LACTATED RINGERS 1,000 ML IV SCH (06:00)
[2024-08-01] MEDS ORDERED: LIDOCAINE 1% (10MG/ML) FOR IV START INTRADERMA PRN (06:00)
[2024-08-01] MEDS ORDERED: droPERidol 2.5 MG/ML VIAL IVP ONE (06:00)
[2024-08-01] MEDS: IV FLUID CONTINUATION 1,000 ML IV ONE (06:06)
[2024-08-01 06:34] LABS: Glucose,Whole Blood 98 mg/dL (70-110)
[2024-08-01] MEDS: ONDANSETRON 4 MG/2 ML VIAL IVP ONE (06:47)
[2024-08-01] MEDS: DEXAMETHASONE SOD PHOSPHATE 4 MG/ML 1 ML VIAL IV ONE (06:47)
[2024-08-01] MEDS: ACETAMINOPHEN TAB 500 MG TAB PO PRN (06:48)
[2024-08-01] MEDS ORDERED: HYDROmorphone 0.5 MG/0.5 ML SYRINGE IVP PRN (07:00)
[2024-08-01] MEDS: HEPARIN SODIUM,PORCINE 5,000 UNIT/ML 1 ML VIAL SQ PRN (07:15)
[2024-08-01] MEDS: MIDAZOLAM 2 MG/2 ML VIAL IV ONE (07:23)
[2024-08-01] MEDS ORDERED: ROPIVACAINE 5 MG/ML 30 ML VIAL ONE (07:34)
[2024-08-01] MEDS ORDERED: KETAMINE HCL IN 0.9 % NACL 50 MG/5 ML SYRINGE ONE (07:34)
[2024-08-01] MEDS ORDERED: NEOSTIGMINE 1 MG/ML 10 ML VIAL ONE (07:34)
[2024-08-01] MEDS ORDERED: ROCURONIUM 10 MG/ML (5 ML VIAL) IV ONE (07:34)
[2024-08-01] MEDS ORDERED: DEXAMETHASONE SOD PHOSPHATE 4 MG/ML 1 ML VIAL ONE (07:34)
[2024-08-01] MEDS ORDERED: MIDAZOLAM 2 MG/2 ML VIAL ONE (07:34)
[2024-08-01] MEDS ORDERED: SUCCINYLCHOLINE CHLORIDE 200 MG/10 ML VIAL IV ONE (07:34)
[2024-08-01] MEDS ORDERED: PROPOFOL 10 MG/ML 20 ML VIAL IV ONE (07:34)
[2024-08-01] MEDS ORDERED: GLYCOPYRROLATE 0.2 MG/ML 2 ML VIAL ONE (07:34)
[2024-08-01] MEDS: ceFAZolin 3 GM in SODIUM CHLORIDE 0.9% 100 ML IVPB PRN (07:36)
[2024-08-01] MEDS: LIDOCAINE 1%-EPI 1:100,000 20 ML VIAL SQ ONE (08:10)
--- NOTE | 2024-08-01 08:21 | P.ANPRN ---
Procedure Note - Anesthesia - Nerve Block Performed Bilateral Erector Spinae Single Time Out Performed: Yes Date of Procedure: 08/01/24 Procedure Start Time: 07:00 Procedure Stop Time: 07:05 Location of Patient: PreOp Indication: Acute Post-Operative Pain, Analgesia, Requested by Surgeon Sedation Type: Sedate with meaningful contact maintained Preparation: Sterile Prep Position: Sitting Catheter: None Needle Types: Pajunk Needle Gauge: 21 Ultrasound used to visualize needle placement: Yes Ultrasound used to observe medication spread: Yes Injectate: 0.5% Ropivacaine (see comment for volume) ([id number],Needle level T9--Each side.)
--- NOTE | 2024-08-01 08:56 | P.OP ---
Date of Procedure: 08/01/24 Preoperative Diagnosis: Umbilical hernia Postoperative Diagnosis: Umbilical hernia Procedure(s) Performed: Laparoscopic robotic cyst repair of umbilical hernia Transversus abdominis plane block Anesthesia: BRODIE Surgeon: Timothy Cid Estimated Blood Loss (ml): 5 Pathology: none sent Condition: stable Disposition: PACU Description of Procedure: The patient is placed in the upper table in the supine position. He received general anesthesia. His abdomen was prepped and draped you sterile fashion. A left upper quadrant skin incision was made and using optical trocar and direct vision the peritoneal cavity entered. Upon entering the cavity there appeared to be evidence of adhesions. Another trocar was placed in the left lower quadrant and the camera is shifted this position and once again the adhesions were visualized. At this point another trocar was placed in the right mid abdomen. And this was placed under direct vision. The camera was positioned at this point and there were still significant adhesions found. Due to the significant adhesions decided not to perform the procedure robotically. A four-quadrant transversus abdominis plane block was performed with 1% local Xylocaine. The umbilical hernia site was visualized. And then a skin incision made at the umbilicus. Then using blunt sharp resection and electrocautery the hernia sac was dissected free and inverted. Using a Colton Parikh suture passer the fascial defect was closed. 4 sutures were used to repair of the hernia defect. The trocars were withdrawn. The abdomen desufflated. The skin was then closed interrupted 3-0 Monocryl suture. Dermabond also applied. Patient tolerated well. He was sent to recovery room in stable condition.
[2024-08-01 09:15] VITALS: TEMP 97.4
[2024-08-01] MEDS: FUROSEMIDE 10 MG/ML 4 ML VIAL IV STA (09:46)
[2024-08-01] MEDS: IPRATROPIUM-ALBUTEROL 3 ML NEB INHALATION STA (09:53)
[2024-08-01] MEDS: HYDROcodone/APAP 10-325MG 1 EACH TAB PO STA (11:57)
[2024-08-01 12:21] VITALS: RESP 18
[2024-08-01 12:42] VITALS: BP 135/72; PULSE 84
== END 2024-08-01 12:58 | disposition home or self-care (01) ==
LOC: OR 05:35
PROVIDERS: ATTEND Surgery
DX: K42.9 Umbilical hernia without obstruction or gangrene (principal); I48.91 Unspecified atrial fibrillation; I25.2 Old myocardial infarction; I11.0 Hypertensive heart disease with heart failure; I50.9 Heart failure, unspecified; K21.9 Gastro-esophageal reflux disease without esophagitis; E78.5 Hyperlipidemia, unspecified; F41.9 Anxiety disorder, unspecified; G47.33 Obstructive sleep apnea (adult) (pediatric); Z88.5 Allergy status to narcotic agent; Z79.899 Other long term (current) drug therapy
CPT/HCPCS: 49591; 94660; 94640; 64468; J2250; J0330; J1644; J1100; J2710; J0690; J2405; J2795; J2704; J1596; J1938